=== PATIENT | male | born 1960 | race Caucasian/White ===

== ENCOUNTER 2020-01-18 08:11 | Outpatient (REF) | payer OTHER, SELFPAY ==
[2020-01-18 09:42] LABS: MANUAL DIFF FLAG NO
[2020-01-18 09:44] LABS: Basophils Absolute Auto 0.1 X10*3/uL (0.0-0.2); Basophils Percent Auto 0.8 % (0-2); Eosinophils Absolute Auto 0.3 X10*3/uL (0.0-0.4); Eosinophils Percent Auto 2.5 % (0-4); Hematocrit 47.1 % (42-52); Hemoglobin 15.2 g/dl (14.0-18.0); Imm Gran Abs Auto 0.06 X10*3/uL (0.00-0.03); Imm Gran Pct Auto 0.6 % (0.0-0.4); Lymphocytes Percent Auto 19.4 % (20-40); Mean Corpuscular HGB Conc 32.3 g/dl (31.0-36.0); Mean Corpuscular Volume 86.9 fL (80-98); Mean Platelet Volume 10.2 fL (9.4-12.4); Monocytes Absolute Auto 0.9 X10*3/uL (0.1-1.2); Monocytes Percent Auto 8.5 % (2-11); Neutrophils Absolute Auto 6.9 X10*3/uL (2.0-8.3); Neutrophils Percent Auto 68.2 % (45-73); Platelet Count 337 X10*3/uL (160-400); Red Blood Count 5.42 X10*6/uL (4.60-5.80); Red Cell Distribution Width 13.9 % (11.0-16.0); White Blood Count 10.1 X10*3/uL (4.8-10.8)
[2020-01-18 10:03] LABS: Glucose Urine UA >=1000 MG/DL (NEG); Leukocyte Esterase Urine NEG (NEG); Nitrite Urine NEG (NEG); Specific Gravity - Urine 1.015 (1.005-1.025); Urine Blood NEG (NEG); Urine Ketones NEG (NEG); Urine Protein NEG (NEG-TRACE)
[2020-01-18 10:05] LABS: Appearance Urine CLEAR; Color Urine STRAW
[2020-01-18 10:18] LABS: RBC Urine 0 /HPF (0); WBC Urine 0 /HPF (0-4)
[2020-01-18 10:22] LABS: Alanine Aminotransferase 28 U/L (0-40); Albumin Level 4.3 g/dL (3.5-5.0); Alkaline Phosphatase 109 U/L (39-117); Anion Gap 14 (12-20); Aspartate Amino Transferase 21 U/L (5-37); Bilirubin Total 0.6 mg/dL (0.0-1.0); Blood Urea Nitrogen 13 mg/dL (9-16); Calcium 9.1 mg/dL (8.4-10.2); Carbon Dioxide 30 mmol/L (22-29); Chloride 101 mmol/L (96-108); Cholesterol 150 mg/dL; Estimated Glomerular Filt Rate > 60; Glucose Fasting 235 mg/dL (60-99); HDL Cholesterol 38 mg/dL; LDL Cholesterol Calculated 79 mg/dl; Potassium 4.3 mmol/l (3.3-5.1); Sodium 141 mmol/L (135-145); Total Protein 7.1 g/dL (6.5-8.0); Triglycerides 169 mg/dL
[2020-01-18 10:22] LABS: Creatinine Urine 38.56 mg/dL; Microalbum/Creatinine Ratio Ur 12.9 ug/mg cr
[2020-01-18 10:46] LABS: TSH reflex Free T4 3.26 mIU/mL (0.32-4.0)
== END 2020-01-18 08:12 | disposition home or self-care (01) ==
LOC: HO.LAB 08:11
PROVIDERS: Visit Provider Internal Medicine
DX: E11.65 Type 2 diabetes mellitus with hyperglycemia (principal); I10 Essential (primary) hypertension; E78.5 Hyperlipidemia, unspecified; K21.9 Gastro-esophageal reflux disease without esophagitis; N34.2 Other urethritis; E66.01 Morbid (severe) obesity due to excess calories
CPT/HCPCS: 36415; 80053; 80061; 81001; 81003; 82043; 84443; 85025

== ENCOUNTER → 2020-03-14 09:29 | Outpatient (BNVA) | payer OTHER, SELFPAY | PROVIDERS: PCP Internal Medicine; Referring Provider Internal Medicine; Visit Provider Internal Medicine | DX: E11.65 Type 2 diabetes mellitus with hyperglycemia (principal); E78.5 Hyperlipidemia, unspecified; I10 Essential (primary) hypertension; Z79.899 Other long term (current) drug therapy | CPT/HCPCS: 82947; 99202 ==

== ENCOUNTER 2020-05-17 08:50 | Outpatient (REF) | payer OTHER, SELFPAY ==
[2020-05-17 09:20] LABS: MANUAL DIFF FLAG NO
[2020-05-17 09:24] LABS: Basophils Absolute Auto 0.1 X10*3/uL (0.0-0.2); Basophils Percent Auto 0.8 % (0-2); Eosinophils Absolute Auto 0.3 X10*3/uL (0.0-0.4); Eosinophils Percent Auto 2.5 % (0-4); Hematocrit 47.1 % (42-52); Hemoglobin 15.4 g/dl (14.0-18.0); Imm Gran Abs Auto 0.05 X10*3/uL (0.00-0.03); Imm Gran Pct Auto 0.4 % (0.0-0.4); Lymphocytes Absolute Auto 2.3 X10*3/uL (1.2-4.9); Lymphocytes Percent Auto 20.4 % (20-40); Mean Corpuscular HGB Conc 32.7 g/dl (31.0-36.0); Mean Corpuscular Hemoglobin 28.3 pg (27.0-33.0); Mean Corpuscular Volume 86.4 fL (80-98); Mean Platelet Volume 9.7 fL (9.4-12.4); Monocytes Percent Auto 9.2 % (2-11); Neutrophils Absolute Auto 7.5 X10*3/uL (2.0-8.3); Neutrophils Percent Auto 66.7 % (45-73); Platelet Count 323 X10*3/uL (160-400); Red Blood Count 5.45 X10*6/uL (4.60-5.80); Red Cell Distribution Width 13.8 % (11.0-16.0); White Blood Count 11.2 X10*3/uL (4.8-10.8)
[2020-05-17 09:35] LABS: Glucose Urine UA >=1000 MG/DL (NEG); Leukocyte Esterase Urine NEG (NEG); Nitrite Urine NEG (NEG); Specific Gravity - Urine 1.015 (1.005-1.025); Urine Blood NEG (NEG); Urine Ketones NEG (NEG); Urine Protein NEG (NEG-TRACE)
[2020-05-17 09:37] LABS: Appearance Urine CLEAR; Color Urine YELLOW
[2020-05-17 09:51] LABS: Alanine Aminotransferase 19 U/L (0-40); Albumin Level 4.4 g/dL (3.5-5.0); Alkaline Phosphatase 90 U/L (39-117); Anion Gap 15 (12-20); Aspartate Amino Transferase 18 U/L (5-37); Bilirubin Total 0.8 mg/dL (0.0-1.0); Blood Urea Nitrogen 11 mg/dL (9-16); Calcium 9.4 mg/dL (8.4-10.2); Carbon Dioxide 32 mmol/L (22-29); Chloride 99 mmol/L (96-108); Cholesterol 155 mg/dL; Estimated Glomerular Filt Rate > 60; Glucose Fasting 176 mg/dL (60-99); HDL Cholesterol 34 mg/dL; LDL Cholesterol Calculated 73 mg/dl; Potassium 4.2 mmol/L (3.3-5.1); Sodium 142 mmol/L (135-145); Total Protein 7.4 g/dL (6.5-8.0); Triglycerides 241 mg/dL
[2020-05-17 09:56] LABS: RBC Urine 0 /HPF (0); WBC Urine 0-2 /HPF (0-4)
[2020-05-17 10:13] LABS: TSH reflex Free T4 3.31 uIU/mL (0.32-4.0)
[2020-05-17 10:23] LABS: Creatinine Urine 58.35 mg/dL; Microalbum/Creatinine Ratio Ur 11.9 ug/mg cr
== END 2020-05-17 08:51 | disposition home or self-care (01) ==
LOC: HO.LAB 08:50
PROVIDERS: PCP Internal Medicine; Visit Provider Internal Medicine
DX: E11.65 Type 2 diabetes mellitus with hyperglycemia (principal); K21.9 Gastro-esophageal reflux disease without esophagitis; E78.5 Hyperlipidemia, unspecified; E66.01 Morbid (severe) obesity due to excess calories; I10 Essential (primary) hypertension; N34.2 Other urethritis; Z68.41 Body mass index [BMI] 40.0-44.9, adult
CPT/HCPCS: 36415; 80053; 80061; 81001; 82043; 84443; 85025

== ENCOUNTER 2021-01-20 08:39 | Outpatient (REF) | payer OTHER, SELFPAY ==
[2021-01-20 09:01] LABS: MANUAL DIFF FLAG NO
[2021-01-20 09:34] LABS: Basophils Absolute Auto 0.1 X10*3/uL (0.0-0.2); Basophils Percent Auto 0.7 % (0-2); Eosinophils Absolute Auto 0.3 X10*3/uL (0.0-0.4); Eosinophils Percent Auto 3.1 % (0-4); Hematocrit 48.5 % (42.0-52.0); Hemoglobin 16.3 g/dl (14.0-18.0); Imm Gran Abs Auto 0.06 X10*3/uL (0.00-0.03); Imm Gran Pct Auto 0.6 % (0.0-0.4); Lymphocytes Absolute Auto 2.6 X10*3/uL (1.2-4.9); Lymphocytes Percent Auto 24.7 % (20-40); Mean Corpuscular HGB Conc 33.6 g/dl (31.0-36.0); Mean Corpuscular Volume 86.1 fL (80.0-98.0); Mean Platelet Volume 9.7 fL (9.4-12.4); Monocytes Absolute Auto 0.8 X10*3/uL (0.1-1.2); Monocytes Percent Auto 7.3 % (2-11); Neutrophils Absolute Auto 6.7 x10*3/uL (2.0-8.3); Neutrophils Percent Auto 63.6 % (45-73); Platelet Count 316 X10*3/uL (160-400); Red Blood Count 5.63 X10*6/uL (4.60-5.80); Red Cell Distribution Width 13.1 % (11.0-16.0); White Blood Count 10.5 X10*3/uL (4.8-10.8)
[2021-01-20 09:40] LABS: Appearance Urine CLEAR; Color Urine STRAW; Glucose Urine UA >=1000 MG/DL (NEG); Leukocyte Esterase Urine NEG (NEG); Nitrite Urine NEG (NEG); PH 6.5 (5.0-8.0); Specific Gravity - Urine <= 1.005 (1.005-1.025); Urine Blood NEG (NEG); Urine Ketones 5 MG/DL (NEG); Urine Protein NEG (NEG-TRACE)
[2021-01-20 09:44] LABS: Estimated Average Glucose 341 mg/dL; Hemoglobin A1c % 13.5 %
[2021-01-20 09:56] LABS: RBC Urine 0-2 /HPF (0); Squamous Epithelial Cell Urine TRACE /LPF; WBC Urine 0 /HPF (0-4)
[2021-01-20 10:01] LABS: Alanine Aminotransferase 27 U/L (0-40); Albumin Level 4.6 g/dL (3.5-5.0); Alkaline Phosphatase 109 U/L (39-117); Anion Gap 17 (12-20); Aspartate Amino Transferase 20 U/L (5-37); Bilirubin Total 1.3 mg/dL (0.0-1.0); Blood Urea Nitrogen 11 mg/dL (9-16); Calcium 9.9 mg/dL (8.4-10.2); Carbon Dioxide 29 mmol/L (22-29); Chloride 95 mmol/L (96-108); Cholesterol 197 mg/dL; Estimated Glomerular Filt Rate > 60; Glucose Fasting 297 mg/dL (60-99); HDL Cholesterol 42 mg/dL; LDL Cholesterol Calculated 103 mg/dl; Potassium 4.2 mmol/L (3.3-5.1); Sodium 137 mmol/L (135-145); Total Protein 7.9 g/dL (6.5-8.0); Triglycerides 261 mg/dL
[2021-01-20 10:12] LABS: Creatinine Urine 32.72 mg/dL; Microalbum/Creatinine Ratio Ur 18.3 ug/mg cr
[2021-01-20 10:23] LABS: TSH reflex Free T4 1.74 uIU/mL (0.32-4.0)
== END 2021-01-20 08:40 | disposition home or self-care (01) ==
LOC: HO.LAB 08:39
PROVIDERS: PCP Internal Medicine; Visit Provider Internal Medicine
DX: I10 Essential (primary) hypertension (principal); K21.9 Gastro-esophageal reflux disease without esophagitis; E78.5 Hyperlipidemia, unspecified; E66.01 Morbid (severe) obesity due to excess calories; Z68.41 Body mass index [BMI] 40.0-44.9, adult; E11.65 Type 2 diabetes mellitus with hyperglycemia
CPT/HCPCS: 36415; 80053; 80061; 81001; 82043; 83036; 84443; 85025

== ENCOUNTER 2021-04-29 10:07 | Outpatient (REF) | payer OTHER, SELFPAY ==
[2021-04-29 10:22] LABS: MANUAL DIFF FLAG NO
[2021-04-29 11:17] LABS: Basophils Absolute Auto 0.1 X10*3/uL (0.0-0.2); Basophils Percent Auto 0.5 % (0-2); Eosinophils Absolute Auto 0.2 X10*3/uL (0.0-0.4); Hematocrit 50.5 % (42.0-52.0); Hemoglobin 16.6 g/dl (14.0-18.0); Imm Gran Abs Auto 0.04 X10*3/uL (0.00-0.03); Imm Gran Pct Auto 0.3 % (0.0-0.4); Lymphocytes Absolute Auto 2.4 X10*3/uL (1.2-4.9); Lymphocytes Percent Auto 21.3 % (20-40); Mean Corpuscular HGB Conc 32.9 g/dl (31.0-36.0); Mean Corpuscular Hemoglobin 29.3 pg (27.0-33.0); Mean Corpuscular Volume 89.2 fL (80.0-98.0); Monocytes Absolute Auto 0.8 X10*3/uL (0.1-1.2); Monocytes Percent Auto 7.2 % (2-11); Neutrophils Absolute Auto 7.9 x10*3/uL (2.0-8.3); Neutrophils Percent Auto 68.7 % (45-73); Platelet Count 316 X10*3/uL (160-400); Red Blood Count 5.66 X10*6/uL (4.60-5.80); White Blood Count 11.5 X10*3/uL (4.8-10.8)
[2021-04-29 11:33] LABS: Estimated Average Glucose 309 mg/dL; Hemoglobin A1c % 12.4 %
[2021-04-29 11:34] LABS: Appearance Urine CLEAR; Color Urine YELLOW; Glucose Urine UA >=1000 MG/DL (NEG); Leukocyte Esterase Urine NEG (NEG); Nitrite Urine NEG (NEG); Urine Blood NEG (NEG); Urine Ketones 15 MG/DL (NEG); Urine Protein NEG (NEG-TRACE)
[2021-04-29 11:39] LABS: Alanine Aminotransferase 23 U/L (0-40); Albumin Level 4.7 g/dL (3.5-5.0); Alkaline Phosphatase 105 U/L (39-117); Anion Gap 17 (12-20); Aspartate Amino Transferase 19 U/L (5-37); Bilirubin Total 1.3 mg/dL (0.0-1.0); Blood Urea Nitrogen 12 mg/dL (9-16); Calcium 9.9 mg/dL (8.4-10.2); Carbon Dioxide 30 mmol/L (22-29); Chloride 96 mmol/L (96-108); Cholesterol 191 mg/dL; Estimated Glomerular Filt Rate > 60; Glucose Fasting 236 mg/dL (60-99); HDL Cholesterol 42 mg/dL; LDL Cholesterol Calculated 104 mg/dl; Potassium 4.1 mmol/L (3.3-5.1); Sodium 139 mmol/L (135-145); Triglycerides 226 mg/dL
[2021-04-29 11:39] LABS: Creatinine Urine 40.26 mg/dL; Microalbum/Creatinine Ratio Ur 19.8 ug/mg cr
[2021-04-29 11:41] LABS: RBC Urine 0 /HPF (0); WBC Urine 0 /HPF (0-4)
[2021-04-29 11:54] LABS: TSH reflex Free T4 2.29 uIU/mL (0.32-4.0); Vitamin D 25-OH Total 19.1 ng/mL (>30)
== END 2021-04-29 10:08 | disposition home or self-care (01) ==
LOC: HO.LAB 10:07
PROVIDERS: PCP Internal Medicine; Visit Provider Internal Medicine
DX: I10 Essential (primary) hypertension (principal); E11.9 Type 2 diabetes mellitus without complications; E55.9 Vitamin D deficiency, unspecified; E78.00 Pure hypercholesterolemia, unspecified
CPT/HCPCS: 36415; 80053; 80061; 81001; 82043; 82306; 83036; 84443; 85025

== ENCOUNTER → 2021-07-07 09:58 | Outpatient (REF) | payer OTHER, SELFPAY ==
--- NOTE | 2021-07-07 10:06 | HM_ITS ---
* Total monitoring time 3 days and 4 hours. * Underlying rhythm is sinus. Average rate 96/Min; ranged 70-145/Min. About 42% the time, rate > 100/Min. * Very rare supraventricular and ventricular ectopy with minimal burden. * No sustained arrhythmias. * No patient events. MTDD
--- NOTE | 2021-07-07 10:06 | CA_ITS ---
Transthoracic Echocardiogram Patient (Last, First, Middle): John Beckman, Gender: Male Date of : 1960 Age: 60 Procedure Date: 07/07/2021 Procedure Type: Transthoracic Echocardiogram Location: OP Height: 175.26 cm Weight: 122.47 kg BSA: 2.35 m2 Heart Rate: bpm BP: 126 / 70 mmHg Wire Weaver Helper: EVY Referring MD: Abdoulaye Lucas MD Symptoms: R06.00 - Dyspnea, unspecified Study Quality: Technically Difficult ECG Rhythm: Sinus Conclusions: - The left ventricular systolic function is normal. The calculated ejection fraction is 59% by biplane method. - No obvious valvular pathology seen on this study. Findings Procedure Information The patient declines contrast. Left Ventricle Normal left ventricular cavity size. The left ventricular systolic function is normal. The calculated ejection fraction is 59% by biplane method. There is no evidence of regional wall motion abnormalities. Diastolic function is normal for age. Difficult to assess wall thickness but either normal or no more than mild LVH. Right Ventricle Normal right ventricular cavity size and systolic function. Atria Both atria are normal in size. Aortic Valve There is a normal trileaflet aortic valve. There is no aortic valve stenosis. There is no aortic valve regurgitation. Mitral Valve The mitral valve appears normal. There is no mitral valve regurgitation. There is no mitral valve stenosis. Pulmonic Valve The pulmonic valve is likely normal. Tricuspid Valve The tricuspid valve was not well visualized. There is no tricuspid valve regurgitation. Tricuspid regurgitation envelope is inadequate for calculation of right ventricular systolic pressure. Great Vessels Top normal ascending aortic size at 3.8 cm. Venous The inferior vena cava was not well visualized. The inferior vena cava is normal in size. Pericardium/Pleural There is no evidence of pericardial effusion. Prior Study Comparison No prior study available for comparison. Recommendations, Care & Conclusions No obvious valvular pathology seen on this study. Measurements 2D Linear Measurements IVSd: 1.22 0.6-0.9/0.6-1.0 cm LVIDd: 3.66 3.9-5.3/4.2-5.9 cm LVIDd Index: 1.56 2.4-3.2/2.2-3.1 cm/m2 LVIDs: 2.75 2.0-3.6 cm LVPWd: 1.22 0.7-1.1 cm LA Diam: 3.90 2.7-3.8/3.0-4.0 cm LAIDs Index: 1.66 1.5-2.3 cm/m2 LV Mass: 185.07 67-162/88-224 g LV Mass Index: 78.75 43-95/49-115 g/m2 LVOT Diam: 2.30 3.0+(-)1.3 cm 2D Systolic Function EF 4C: 56.10 >55% EF 2C: 65.20 >55% EF BiP: 58.60 >55% Mitral Valve MV Pk E: 0.64 MV PK A: 0.67 MV Decel Time: 178.00 E/A: 1.00 E'Lateral: 6.31 E'Medial: 5.66 E/E' Med: 11.40 E/E' Lat: 10.20 PHT: 52.00 MVA PHT: 4.23 Decel Campbell: 3.62 Aortic Valve AoV Pk Elfego: 1.25 AoV Mn Elfego: 0.87 AoV VTI: 0.19 AoV Pk Grad: 6.00 Aov Mn Grad: 3.00 EDER Cont.VTI: 3.64 LVOT LVOT Pk Elfgeo: 1.08 LVOT Mn Elfego: 0.69 LVOT VTI: 0.17 LVOT Pk Grad: 5.00 LVOT Mn Grad: 2.00 LVOT Diam: 2.30 LVOT Area: 4.15 Diastolic Function MV Pk E: 0.64 MV Pk A: 0.67 E/A: 1.00 E'Medial: 5.66 E/E' Med: 11.40 E' Laterial: 6.31 E/E' Lat: 10.20 Right Ventricle TAPSE (mm): 18.00 TVS' Elfego: 12.50 Great Vessels Aorta Sinus of Valsalva: 3.82 2.0-3.[address] [place]: 3.28 1.7-3.4 cm Ao Asc: 3.80 2.1-3.4 cm Ao Arch: 2.50 Updated in Other Vendor System with Status of Final Ray Maddox MD electronically signed on 07/08/2021 11:16:27 AM with status of Final
== END ==
LOC: HO.CARD 09:58
PROVIDERS: PCP Internal Medicine; Visit Provider Internal Medicine
DX: R00.2 Palpitations (principal); R06.00 Dyspnea, unspecified
CPT/HCPCS: 93242; 93306

== ENCOUNTER 2021-07-14 08:41 | Outpatient (REF) | payer OTHER, SELFPAY ==
[2021-07-14 09:03] LABS: MANUAL DIFF FLAG NO
[2021-07-14 09:30] LABS: Basophils Absolute Auto 0.1 X10*3/uL (0.0-0.2); Basophils Percent Auto 0.9 % (0-2); Eosinophils Absolute Auto 0.2 X10*3/uL (0.0-0.4); Eosinophils Percent Auto 2.1 % (0-4); Hematocrit 46.8 % (42.0-52.0); Hemoglobin 15.6 g/dl (14.0-18.0); Imm Gran Abs Auto 0.05 X10*3/uL (0.00-0.03); Imm Gran Pct Auto 0.6 % (0.0-0.4); Lymphocytes Absolute Auto 1.9 X10*3/uL (1.2-4.9); Lymphocytes Percent Auto 21.7 % (20-40); Mean Corpuscular HGB Conc 33.3 g/dl (31.0-36.0); Mean Corpuscular Hemoglobin 29.5 pg (27.0-33.0); Mean Corpuscular Volume 88.6 fL (80.0-98.0); Mean Platelet Volume 9.9 fL (9.4-12.4); Monocytes Absolute Auto 0.8 X10*3/uL (0.1-1.2); Monocytes Percent Auto 9.6 % (2-11); Neutrophils Absolute Auto 5.6 x10*3/uL (2.0-8.3); Neutrophils Percent Auto 65.1 % (45-73); Platelet Count 307 X10*3/uL (160-400); Red Blood Count 5.28 X10*6/uL (4.60-5.80); Red Cell Distribution Width 12.8 % (11.0-16.0); White Blood Count 8.5 X10*3/uL (4.8-10.8)
[2021-07-14 09:42] LABS: Alanine Aminotransferase 20 U/L (0-40); Albumin Level 4.2 g/dL (3.5-5.0); Alkaline Phosphatase 76 U/L (39-117); Anion Gap 15 (12-20); Aspartate Amino Transferase 17 U/L (5-37); Bilirubin Total 1.3 mg/dL (0.0-1.0); Blood Urea Nitrogen 12 mg/dL (9-16); Calcium 9.8 mg/dL (8.4-10.2); Carbon Dioxide 29 mmol/L (22-29); Chloride 96 mmol/L (96-108); Cholesterol 172 mg/dL; Estimated Glomerular Filt Rate > 60; Glucose Fasting 268 mg/dL (60-99); HDL Cholesterol 38 mg/dL; LDL Cholesterol Calculated 85 mg/dl; Potassium 4.5 mmol/L (3.3-5.1); Sodium 135 mmol/L (135-145); Total Protein 7.3 g/dL (6.5-8.0); Triglycerides 246 mg/dL
[2021-07-14 10:02] LABS: Estimated Average Glucose 295 mg/dL; Hemoglobin A1c % 11.9 %
[2021-07-14 10:05] LABS: TSH reflex Free T4 1.81 uIU/mL (0.32-4.0); Vitamin D 25-OH Total 16.3 ng/mL (>30)
[2021-07-14 10:53] LABS: Appearance Urine CLEAR; Color Urine YELLOW; Glucose Urine UA 500 MG/DL (NEG); Leukocyte Esterase Urine NEG (NEG); Nitrite Urine NEG (NEG); Specific Gravity - Urine <= 1.005 (1.005-1.025); Urine Blood NEG (NEG); Urine Ketones 5 MG/DL (NEG); Urine Protein NEG (NEG-TRACE)
[2021-07-14 11:11] LABS: Creatinine Urine 38.01 mg/dL
== END 2021-07-14 08:42 | disposition home or self-care (01) ==
LOC: HO.LAB 08:41
PROVIDERS: PCP Internal Medicine; Visit Provider Internal Medicine
DX: E11.9 Type 2 diabetes mellitus without complications (principal); E78.00 Pure hypercholesterolemia, unspecified; E55.9 Vitamin D deficiency, unspecified; I10 Essential (primary) hypertension
CPT/HCPCS: 36415; 80053; 80061; 81003; 82043; 82306; 83036; 84443; 85025

== ENCOUNTER → 2021-10-19 08:24 | Outpatient (BNVA) | payer OTHER, SELFPAY | PROVIDERS: PCP Internal Medicine; Visit Provider Urology | DX: N40.1 Benign prostatic hyperplasia with lower urinary tract symptoms (principal); E11.65 Type 2 diabetes mellitus with hyperglycemia | CPT/HCPCS: 51798; 99202 ==

== ENCOUNTER → 2021-12-08 09:07 | Outpatient (BNVA) | payer OTHER, SELFPAY | PROVIDERS: PCP Internal Medicine; Referring Provider Internal Medicine; Visit Provider Internal Medicine Cardiovascular Disease | DX: R00.2 Palpitations (principal) | CPT/HCPCS: 93005; 99202 ==

== ENCOUNTER 2022-10-05 07:33 | Outpatient (AMB) | payer OTHER, SELFPAY ==
[2022-10-05 07:40] VITALS: BP 128/72; PULSE 92; O2SAT 95; BMI 37.8
--- NOTE | 2022-10-05 07:40 | MHC.PC.OV ---
Vital Signs 10/05/22 07:40 Height 5 ft 9 in Weight 256 lb BMI 37.8 BP 128/72 Blood Pressure Location Lt brachial Position Sitting Pulse 92 Pulse Source Pulse Oximeter Pulse Oximetry (%) 95 Oxygen Delivery Method Room Air Intake Visit Reasons: 6 month follow up/dm,hyperlipidemia Allergies codeine [CODEINE] Allergy (Severe, Verified 10/05/22 07:59) CONVULSIONS, anaphylaxis Penicillins [PENICILLINS] Allergy (Severe, Verified 10/05/22 07:59) ANAPHYLAXIS erythromycin base Allergy (Unknown, Verified 10/05/22 07:59) Unknown penicillin V Allergy (Unknown, Verified 10/05/22 07:59) anaphylaxis, throat swelling pollen extracts Allergy (Unknown, Verified 10/05/22 07:59) Unknown [place] Allergy (Unknown, Verified 10/05/22 07:59) tongue spits in two, tongue swelling Sulfa (Sulfonamide Antibiotics) Allergy (Unknown, Verified 10/05/22 07:59) hives Medication List - Last Reconciled 10/05/22 by VIVIAN Ruiz amlodipine 10 mg PO DAILY atorvastatin 10 mg PO BEDTIME 90 days blood sugar diagnostic (FreeStyle Lite Strips) 4x daily blood-glucose meter (FreeStyle Lite Meter kit) As directed dulaglutide 4.5 mg (0.5 mL) subcut QWEEK 3 months empagliflozin (Jardiance) 25 mg PO DAILY ergocalciferol (vitamin D2) 1,250 mcg PO QWEEK hydrochlorothiazide 25 mg PO DAILY irbesartan 300 mg PO DAILY lancets (FreeStyle Lancets) 4x daily metformin ER 1,000 mg (2 x 500 mg) PO BID 90 days omeprazole 20 mg PO DAILY 30 days pioglitazone 45 mg PO DAILY 90 days tadalafil 5 mg PO DAILY 90 days tamsulosin 0.4 mg PO BEDTIME 30 days Tobacco use date assessed: 10/05/22 Dental Screening Dental Screen Date: 10/05/22 Did you have a dental visit in the last 12 months?: Yes Did you have a dental problem in the last 6 months where you did not have access to dental care?: No Was dental information given to patient?: Patient has dentist HPI HPI Comments History of Present Illness Details 62-year-old male past medical history significant for type 2 diabetes mellitus, hyperlipidemia, hypertension, GERD and obesity. Patient Dr. Lucas presents today for follow-up visit. Blood pressure below goal in office today. Patient's hemoglobin A1c 9.0%, patient currently following with Dr. Cotter Endocrinology, patient requesting referral to diabetic commissary assistant. Patient's diabetic eye exam up-to-date completed in March no signs diabetic retinopathy. Patient has not completed recommended lab work, new orders placed for labs. Patient also requesting referral to [facility] as he states he is due for his colonoscopy, referral entered. [facility] Medical History (Updated 12/18/21 @ 14:39 by Abdoulaye Lucas MD) Allergic rhinitis Benign essential hypertension Diabetes mellitus with hyperglycemia, without long-term current use of insulin Dyslipidemia GERD without esophagitis HLD (hyperlipidemia) HTN (hypertension) Low back pain Morbid obesity with BMI of 40.0-44.9, adult Obesity (BMI 30-39.9) Primary osteoarthritis of both knees T2DM (type 2 diabetes mellitus) Urethritis Surgical History History of drainage of abscess History of umbilical hernia repair Family History Father No problems noted. Mother Chronic mental illness CVD (cardiovascular disease) Maternal Grandmother Brain cancer Brother CVD (cardiovascular disease) Afib Sister Afib Other Mental health problem Social History Housing: House Alcohol intake: never Patient Tobacco Use Status: Never used Tobacco e-Cigarette/Vaping Use: Never Used Second Hand Smoke Exposure: Yes service: No Current occupational status: employed Cognitive needs: No Hearing needs: Yes Vision needs: No Questionnaire PHQ-9 Over the last 2 weeks, how often have you been bothered by any of the following problems? 1. Little interest or pleasure in doing things: not at all 2. Feeling down, depressed, or hopeless: not at all 3. Trouble falling or staying asleep, or sleeping too much: not at all 4. Feeling tired or having little energy: not at all 5. Poor appetite or overeating: not at all 6. Feeling bad about yourself - or that you are a failure or have let yourself or your family down: not at all 7. Trouble concentrating on things, such as reading the newspaper or watching television: not at all 8. Moving or speaking so slowly that other people could have noticed. Or the opposite - being so fidgety or restless that you have been moving around a lot more than usual: not at all 9. Thoughts that you would be better off or of hurting yourself in some way: not at all Total score: 0 Depression Screening Interpretation: Negative Source: Developed by Drs. Milind Vu, Aminah Cross, Donnie Coles and colleagues, with an educational breana from [employer]. Thrive Questionnaire Date Thrive assessed: 10/05/22 I am a: Patient What is your living situation today?: I have a steady place to live Within the past 12 months, did the food you bought not last and you didn't have the money to get more?: Never true Within the past 12 months, did you worry whether your food would run out before you got money to buy more?: Never true Do you have trouble paying for medicines?: No Do you have trouble getting transportation to medical appointments?: No Do you have trouble paying your heating and electricity bill?: No Do you have trouble taking care of your child, family member or friend?: No Do you have trouble with day-to-day activities such as bathing, preparing meals, shopping, managing finances, etc.?: No Are you currently unemployed and looking for a job?: No Are you interested in more education?: No Currently or been in a relationship where the following occur: no concerns reported AUDIT C Alcohol Use Questionnaire (AUDIT-C) 1. How often do you have a drink containing alcohol?: Never 3. How often do you have six or more drinks on one occasion?: Never Total Score: 0 Score Reviewed/Action Taken: Yes ROYER-7 AMB Questionnaire ROYER-7 Date ROYER - 7 assessed: 10/05/22 Feeling nervous, anxious, or on edge: 0 = Not at all Not being able to stop or control worryin = Not at all Worrying too much about different things: 0 = Not at all Trouble relaxin = Not at all Being so restless that it is hard to sit still: 0 = Not at all Becoming easily annoyed or irritable: 0 = Not at all Feeling afraid as if something awful might happen: 0 = Not at all Total ROYER-7 score (0-4 normal; 5-9 mild; 10-14 moderate; 15-21 severe): 0 Source: Developed by Drs. Milind Vu, Aminah Cross, Donnie Coles and colleagues, with an educational breana from [employer]. Review of Systems Const Denies chills, Denies fatigue, Denies fever(s) and Denies poor appetite Eyes Denies no additional complaints ENT Reports Normal hearing present Card Denies chest pain, Denies syncope, Denies rapid heart rate and Denies dyspnea Resp Denies cough and Denies dyspnea GI Denies change in stool character, Denies constipation, Denies diarrhea, Denies nausea and Denies vomiting Denies dysuria, Denies urinary frequency and Denies urinary urgency Neuro Reports Normal hearing present, Denies confusion and Denies syncope Psych Denies confusion Endo Denies fatigue Physical exam (Primary Care) Vital Signs: Last Vital Signs Pulse 92 10/05/22 07:40 BP 128/72 10/05/22 07:40 Pulse Ox 95 10/05/22 07:40 Oxygen Delivery Method Room Air 10/05/22 07:40 BMI result Body Mass Index 37.8 Tobacco/Smoking Status: Tobacco use Status Tobacco use date assessed 10/05/22 10/05/22 07:42 Patient Tobacco Use Status Never used Tobacco 10/05/22 07:42 e-Cigarette/Vaping Use Never Used 10/05/22 07:42 PHQ-9: PHQ-9 Score PHQ-9: Total score 0 10/05/22 07:57 Depression Screening Interpretation: Negative Thrive Assessment: Date of Thrive Assessment Date Thrive assessed 10/05/22 10/05/22 07:42 Currently or been in a relationship where the following occur: no concerns reported Const General: No confusion Orientation/consciousness: No confusion HENMT Head: Yes normocephalic and Yes atraumatic Eyes Conjunctivae: conjunctivae normal Chest Chest palpation & inspection: normal inspection of the chest Resp Effort & Inspection: normal respiratory effort Auscultation: clear to auscultation bilaterally, no crackles, no rhonchi and no wheezes Cardio Rate: regular rate Rhythm: regular rhythm Heart sounds: S1 normal heart sound present and S2 normal heart sound present GI Inspection: Yes normal to inspection Neuro General: No confusion Cranial nerves: Yes Normal hearing present Extrem General: No edema Results AMB Hemoglobin A1c AMB Hemoglobin A1c 9.0 % Last Edit by Johana Triana CMA on 10/05/22 07:54 Results Reviewed Results Reviewed: Laboratory Last Values Hgb A1c (Clinic) 9.0 % (4.0-6.0) H 10/05/22 07:42 Assessment and Plan Assessment & Plan (1) HLD (hyperlipidemia): Code(s): E78.5 - Hyperlipidemia, unspecified Qualifiers: Hyperlipidemia type: unspecified Qualified Code(s): E78.5 - Hyperlipidemia, unspecified Plan: Continue on atorvastatin 10 mg at bedtime. Fasting lipid panel ordered. Follow low cholesterol diet. (2) HTN (hypertension): Code(s): I10 - Essential (primary) hypertension Qualifiers: Hypertension type: unspecified Qualified Code(s): I10 - Essential (primary) hypertension Plan: Continue on amlodipine 10 mg, hydrochlorothiazide 25 mg and irbesartan 300 mg daily. Follow low-salt diet and exercise. Blood pressure goal < 140/90. (3) Diabetes mellitus with hyperglycemia, without long-term current use of insulin: Code(s): E11.65 - Type 2 diabetes mellitus with hyperglycemia Qualifiers: Diabetes mellitus type: type 2 Qualified Code(s): E11.65 - Type 2 diabetes mellitus with hyperglycemia Plan: Continue on Trulicity 4.5 mg weekly, Jardiance 25 mg daily, metformin a 1000 mg b.i.d. and P clitoris on 45 mg daily. Referral entered to diabetic commissary assistant. HGB A1c 9.0%, goal < 7.0% Continue to follow with Dr. Cotter. Plan Follow up in [address] Lucas Orders: Orders Comprehensive [place]. Panel Fast Today E11.65 - Type 2 diabetes mellitus with hyperglycemia Lipid Panel Today E78.5 - Hyperlipidemia, unspecified TSH reflex Free T4 Today Z13.29 - Encounter for screening for other suspected endocrine disorder Microalbumin, Random (w Creat) Today E11.65 - Type 2 diabetes mellitus with hyperglycemia Complete Blood Count Auto Diff Today Z13.0 - Encounter for screening for diseases of the blood and blood-forming organs and certain disorders involving the immune mechanism AMB Hemoglobin A1c Today Z13.9 - Encounter for screening, unspecified Referrals Gastroenterology Referral Z12.11 - Encounter for screening for malignant neoplasm of colon Billing And Quality Technician Nutrition Referral E11.65 - Type 2 diabetes mellitus with hyperglycemia Coding Level of Care Code Est Pt Level 4 (13863) Diagnoses HLD (hyperlipidemia) E78.5 Hyperlipidemia type: unspecified HTN (hypertension) I10 Hypertension type: unspecified Diabetes mellitus with hyperglycemia, without long-term current use of insulin E11.65 Diabetes mellitus type: type 2 Additional Codes PHQ-9 - 68469 - PHQ-9 Billing: Y ([id number])
== END 2022-10-05 08:11 | disposition home or self-care (01) ==
PROVIDERS: PCP Internal Medicine; Visit Provider Nurse Practitioner Family
DX: E11.65 Type 2 diabetes mellitus with hyperglycemia (principal)
CPT/HCPCS: 83036; 99214

== ENCOUNTER 2022-11-03 08:10 | Outpatient (REF) | payer OTHER, SELFPAY ==
[2022-11-03 08:32] LABS: MANUAL DIFF FLAG NO
[2022-11-03 09:24] LABS: Basophils Absolute Auto 0.1 X10*3/uL (0.0-0.2); Basophils Percent Auto 0.8 % (0-2); Eosinophils Absolute Auto 0.2 X10*3/uL (0.0-0.4); Eosinophils Percent Auto 2.5 % (0-4); Hematocrit 49.6 % (42.0-52.0); Hemoglobin 16.4 g/dl (14.0-18.0); Imm Gran Abs Auto 0.03 X10*3/uL (0.00-0.03); Imm Gran Pct Auto 0.3 % (0.0-0.4); Mean Corpuscular HGB Conc 33.1 g/dl (31.0-36.0); Mean Corpuscular Hemoglobin 29.4 pg (27.0-33.0); Mean Platelet Volume 10.4 fL (9.4-12.4); Monocytes Absolute Auto 0.8 X10*3/uL (0.1-1.2); Monocytes Percent Auto 8.6 % (2-11); Neutrophils Absolute Auto 5.9 x10*3/uL (2.0-8.3); Neutrophils Percent Auto 65.8 % (45-73); Platelet Count 322 X10*3/uL (160-400); Red Blood Count 5.57 X10*6/uL (4.60-5.80); Red Cell Distribution Width 13.1 % (11.0-16.0)
[2022-11-03 09:52] LABS: Appearance Urine Clear; Color Urine Yellow; Glucose Urine UA >=1000 mg/dL (Negative); Leukocyte Esterase Urine Negative (Negative); Nitrite Urine Negative (Negative); Specific Gravity - Urine >= 1.030 (1.005-1.025); UMIC TRIGGER UACC YES; Urine Blood Negative (Negative); Urine Ketones Negative (Negative); Urine Protein Negative (Neg-Trace)
[2022-11-03 09:57] LABS: Estimated Average Glucose 206 mg/dL; Hemoglobin A1c % 8.8 % (<6.0)
[2022-11-03 10:06] LABS: Bacteria Urine None Seen (None Seen); Hyaline Casts Urine 0-2 /LPF (0-2); RBC Urine 0-2 /HPF (0-2); Squamous Epithelial Cell Urine 0-2 /HPF (0-2); WBC Urine 0-5 /HPF (0-5)
[2022-11-03 10:14] LABS: Creatinine Urine 42.47 mg/dL; Microalbum/Creatinine Ratio Ur 14.1 ug/mg cr (<30)
[2022-11-03 10:37] LABS: Alanine Aminotransferase 17 U/L (0-40); Albumin Level 4.4 g/dL (3.5-5.0); Alkaline Phosphatase 86 U/L (39-117); Anion Gap 15 (12-20); Aspartate Amino Transferase 18 U/L (5-37); Bilirubin Total 1.3 mg/dL (0.0-1.0); Blood Urea Nitrogen 14 mg/dL (9-16); Calcium 9.4 mg/dL (8.4-10.2); Carbon Dioxide 30 mmol/L (22-29); Chloride 100 mmol/L (96-108); Cholesterol 158 mg/dL (<200); Estimated Glomerular Filt Rate > 60; Glucose Fasting 176 mg/dL (60-99); HDL Cholesterol 42 mg/dL (>40); LDL Cholesterol Calculated 78 mg/dL (<100); Potassium 3.6 mmol/L (3.3-5.1); Sodium 141 mmol/L (135-145); Total Protein 7.4 g/dL (6.5-8.0); Triglycerides 192 mg/dL (<150)
[2022-11-03 10:41] LABS: TSH reflex Free T4 2.76 uIU/mL (0.32-4.0); Vitamin D 25-OH Total 22.9 ng/mL (>30)
== END 2022-11-03 08:11 | disposition home or self-care (01) ==
LOC: HO.LAB 08:10
PROVIDERS: Absent Provider Nurse Practitioner Family; PCP Internal Medicine; Referring Provider Internal Medicine Endocrinology, Diabetes & Metabolism; Visit Provider Internal Medicine
DX: Z13.0 Encounter for screening for diseases of the blood and blood-forming organs and certain disorders involving the immune mechanism (principal); E11.65 Type 2 diabetes mellitus with hyperglycemia; E78.00 Pure hypercholesterolemia, unspecified; E55.9 Vitamin D deficiency, unspecified
CPT/HCPCS: 36415; 80053; 80061; 81001; 81003; 82043; 82306; 83036; 84443; 85025

== ENCOUNTER 2023-01-05 07:35 | Outpatient (REF) | payer OTHER, SELFPAY ==
[2023-01-05 08:13] LABS: MANUAL DIFF FLAG NO
[2023-01-05 08:24] LABS: Basophils Absolute Auto 0.1 X10*3/uL (0.0-0.2); Basophils Percent Auto 0.9 % (0-2); Eosinophils Absolute Auto 0.3 X10*3/uL (0.0-0.4); Eosinophils Percent Auto 3.2 % (0-4); Hematocrit 49.9 % (42.0-52.0); Hemoglobin 16.4 g/dl (14.0-18.0); Imm Gran Abs Auto 0.03 X10*3/uL (0.00-0.03); Imm Gran Pct Auto 0.3 % (0.0-0.4); Lymphocytes Absolute Auto 1.9 X10*3/uL (1.2-4.9); Lymphocytes Percent Auto 21.3 % (20-40); Mean Corpuscular HGB Conc 32.9 g/dl (31.0-36.0); Mean Corpuscular Hemoglobin 29.5 pg (27.0-33.0); Mean Corpuscular Volume 89.7 fL (80.0-98.0); Mean Platelet Volume 9.5 fL (9.4-12.4); Monocytes Absolute Auto 0.7 X10*3/uL (0.1-1.2); Monocytes Percent Auto 7.9 % (2-11); Neutrophils Percent Auto 66.4 % (45-73); Platelet Count 290 X10*3/uL (160-400); Red Blood Count 5.56 X10*6/uL (4.60-5.80); Red Cell Distribution Width 12.9 % (11.0-16.0); White Blood Count 9.1 X10*3/uL (4.8-10.8)
[2023-01-05 08:46] LABS: Appearance Urine Clear; Color Urine Yellow; Glucose Urine UA >=1000 mg/dL (Negative); Leukocyte Esterase Urine Negative (Negative); Nitrite Urine Negative (Negative); Specific Gravity - Urine >= 1.030 (1.005-1.025); UMIC TRIGGER UACC YES; Urine Blood Negative (Negative); Urine Ketones Negative (Negative); Urine Protein Negative (Neg-Trace)
[2023-01-05 08:55] LABS: Alanine Aminotransferase 20 U/L (0-40); Albumin Level 4.4 g/dL (3.5-5.0); Alkaline Phosphatase 98 U/L (39-117); Anion Gap 15 (12-20); Aspartate Amino Transferase 17 U/L (5-37); Bilirubin Total 1.3 mg/dL (0.0-1.0); Blood Urea Nitrogen 12 mg/dL (9-16); Calcium 9.5 mg/dL (8.4-10.2); Carbon Dioxide 28 mmol/L (22-29); Chloride 101 mmol/L (96-108); Cholesterol 168 mg/dL (<200); Estimated Glomerular Filt Rate > 60; Glucose Fasting 195 mg/dL (60-99); HDL Cholesterol 39 mg/dL (>40); LDL Cholesterol Calculated 96 mg/dL (<100); Potassium 3.9 mmol/L (3.3-5.1); Sodium 140 mmol/L (135-145); Total Protein 7.6 g/dL (6.5-8.0); Triglycerides 166 mg/dL (<150)
[2023-01-05 08:56] LABS: Bacteria Urine None Seen (None Seen); Hyaline Casts Urine 0-2 /LPF (0-2); RBC Urine 0-2 /HPF (0-2); Squamous Epithelial Cell Urine 0-2 /HPF (0-2); WBC Urine 0-5 /HPF (0-5)
[2023-01-05 09:12] LABS: TSH reflex Free T4 2.25 uIU/mL (0.32-4.0)
[2023-01-05 09:25] LABS: Creatinine Urine 48.44 mg/dL; Microalbum/Creatinine Ratio Ur 16.5 ug/mg cr (<30)
== END 2023-01-05 07:36 | disposition home or self-care (01) ==
LOC: HO.LAB 07:35
PROVIDERS: Nurse Practitioner Family; PCP Internal Medicine; Visit Provider Internal Medicine
DX: I10 Essential (primary) hypertension (principal); E11.65 Type 2 diabetes mellitus with hyperglycemia; E78.5 Hyperlipidemia, unspecified
CPT/HCPCS: 36415; 80053; 80061; 81001; 82043; 82570; 84443; 85025

== ENCOUNTER 2023-01-07 15:55 | Outpatient (AMB) | payer OTHER, SELFPAY ==
--- NOTE | 2023-01-07 16:05 | MHC.PC.OV ---
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: No Accompanied by: Self / Same As Patient Allergies codeine [CODEINE] Allergy (Severe, Verified 01/07/23 16:56) CONVULSIONS, anaphylaxis Penicillins [PENICILLINS] Allergy (Severe, Verified 01/07/23 16:56) ANAPHYLAXIS erythromycin base Allergy (Unknown, Verified 01/07/23 16:56) Unknown penicillin V Allergy (Unknown, Verified 01/07/23 16:56) anaphylaxis, throat swelling pollen extracts Allergy (Unknown, Verified 01/07/23 16:56) Unknown [place] Allergy (Unknown, Verified 01/07/23 16:56) tongue spits in two, tongue swelling Sulfa (Sulfonamide Antibiotics) Allergy (Unknown, Verified 01/07/23 16:56) hives Medication List - Last Reconciled 01/07/23 by Abdoulaye Lucas MD amlodipine 10 mg PO DAILY atorvastatin 10 mg PO BEDTIME 90 days blood sugar diagnostic (FreeStyle Lite Strips) 4x daily blood-glucose meter (FreeStyle Lite Meter kit) As directed dulaglutide 4.5 mg (0.5 mL) subcut QWEEK 3 months empagliflozin (Jardiance) 25 mg PO DAILY 90 days ergocalciferol (vitamin D2) 1,250 mcg PO QWEEK hydrochlorothiazide 25 mg PO DAILY irbesartan 300 mg PO DAILY lancets (FreeStyle Lancets) 4x daily metformin ER 1,000 mg (2 x 500 mg) PO BID 90 days omeprazole 20 mg PO DAILY 30 days pioglitazone 45 mg PO DAILY 90 days tadalafil 5 mg PO DAILY 90 days tamsulosin 0.4 mg PO BEDTIME 30 days Tobacco use date assessed: 01/07/23 Dental Screening Dental Screen Date: 01/07/23 Did you have a dental visit in the last 12 months?: Yes Did you have a dental problem in the last 6 months where you did not have access to dental care?: No Was dental information given to patient?: Patient has dentist HPI DM, HTN, HLD HPI Details Patient comes in today for his follow up visit States that he feels okay He denies any headaches or dizziness Denies any chest pains, no SOB No nausea/vomiting, no abdominal pain No change in bowel habits noted Needs a few of his Rx refilled Is also requesting for something to help with his prostate - states that he still has a weak urine stream when he goes to the bathroom Had his follow up labs done a couple of days ago - to discuss his results [facility] Medical History Obesity (BMI 30-39.9) HLD (hyperlipidemia) HTN (hypertension) T2DM (type 2 diabetes mellitus) Low back pain Morbid obesity with BMI of 40.0-44.9, adult Urethritis Allergic rhinitis Primary osteoarthritis of both knees GERD without esophagitis Dyslipidemia Benign essential hypertension Diabetes mellitus with hyperglycemia, without long-term current use of insulin Surgical History History of drainage of abscess History of umbilical hernia repair Family History Father No problems noted. Mother Chronic mental illness CVD (cardiovascular disease) Maternal Grandmother Brain cancer Brother CVD (cardiovascular disease) Afib Sister Afib Other Mental health problem Social History Housing: House Alcohol intake: never Patient Tobacco Use Status: Never used Tobacco e-Cigarette/Vaping Use: Never Used Second Hand Smoke Exposure: Yes service: No Current occupational status: employed Cognitive needs: No Hearing needs: Yes Vision needs: No Questionnaire PHQ-9 Over the last 2 weeks, how often have you been bothered by any of the following problems? 1. Little interest or pleasure in doing things: not at all 2. Feeling down, depressed, or hopeless: not at all 3. Trouble falling or staying asleep, or sleeping too much: not at all 4. Feeling tired or having little energy: not at all 5. Poor appetite or overeating: not at all 6. Feeling bad about yourself - or that you are a failure or have let yourself or your family down: not at all 7. Trouble concentrating on things, such as reading the newspaper or watching television: not at all 8. Moving or speaking so slowly that other people could have noticed. Or the opposite - being so fidgety or restless that you have been moving around a lot more than usual: not at all 9. Thoughts that you would be better off or of hurting yourself in some way: not at all Total score: 0 Depression Screening Interpretation: Negative Depression Screening Done: Yes [id number] - PHQ-9 Billing: Yes Source: Developed by Drs. Milind Vu, Aminah Cross, Donnie Coles and colleagues, with an educational breana from [employer]. Thrive Questionnaire Date Thrive assessed: 01/07/23 I am a: Patient What is your living situation today?: I have a steady place to live Within the past 12 months, did the food you bought not last and you didn't have the money to get more?: Never true Within the past 12 months, did you worry whether your food would run out before you got money to buy more?: Never true Do you have trouble paying for medicines?: No Do you have trouble getting transportation to medical appointments?: No Do you have trouble paying your heating and electricity bill?: No Do you have trouble taking care of your child, family member or friend?: No Do you have trouble with day-to-day activities such as bathing, preparing meals, shopping, managing finances, etc.?: No Are you currently unemployed and looking for a job?: No Are you interested in more education?: No Please select the resources that you would like help with: None Currently or been in a relationship where the following occur: no concerns reported AUDIT C Alcohol Use Questionnaire (AUDIT-C) 1. How often do you have a drink containing alcohol?: Never 3. How often do you have six or more drinks on one occasion?: Never Total Score: 0 Score Reviewed/Action Taken: Yes ROYER-7 AMB Questionnaire ROYER-7 Date ROYER - 7 assessed: 01/07/23 Feeling nervous, anxious, or on edge: 0 = Not at all Not being able to stop or control worryin = Not at all Worrying too much about different things: 0 = Not at all Trouble relaxin = Not at all Being so restless that it is hard to sit still: 0 = Not at all Becoming easily annoyed or irritable: 0 = Not at all Feeling afraid as if something awful might happen: 0 = Not at all Total ROYER-7 score (0-4 normal; 5-9 mild; 10-14 moderate; 15-21 severe): 0 Source: Developed by Drs. Milind Vu, Aminah Cross, Donnie Coles and colleagues, with an educational breana from [employer]. Review of Systems Const Denies chills, Reports fatigue, Denies fever(s) and Denies headache(s) ENT Denies dysphagia, Denies dizziness, Denies otalgia, Denies headache(s), Denies neck pain, Denies odynophagia and Denies sore throat Card Denies chest pain, Denies palpitations and Denies dyspnea Resp Denies cough and Denies dyspnea GI Denies abdominal pain, Denies constipation, Denies dysphagia, Denies heartburn, Denies diarrhea, Denies nausea, Denies odynophagia and Denies vomiting Reports oliguria (weak urinary stream), Denies dysuria, Reports nocturia and Denies urinary frequency Musc Denies neck pain Skin/Breast Denies rash Neuro Denies dizziness and Denies headache(s) Endo Reports fatigue and Denies palpitations Physical exam (Primary Care) Vital Signs: Last Vital Signs Pulse 87 01/07/23 16:06 BP 134/80 01/07/23 16:06 Pulse Ox 97 01/07/23 16:06 Oxygen Delivery Method Room Air 01/07/23 16:06 BMI result Body Mass Index 37.8 Tobacco/Smoking Status: Tobacco use Status Tobacco use date assessed 01/07/23 01/07/23 16:08 Patient Tobacco Use Status Never used Tobacco 01/07/23 16:08 e-Cigarette/Vaping Use Never Used 01/07/23 16:08 PHQ-9: PHQ-9 Score PHQ-9: Total score 0 01/07/23 22:50 Depression Screening Interpretation: Negative Thrive Assessment: Date of Thrive Assessment Date Thrive assessed 01/07/23 01/07/23 16:08 Currently or been in a relationship where the following occur: no concerns reported Const General: no acute distress and alert HENMT Ears: TM's normal bilaterally and EAC's normal Throat: Yes posterior oropharynx normal and Yes tonsils normal (no TP congestion) Neck Neck: Yes no lymphadenopathy and Yes supple Resp Auscultation: clear to auscultation bilaterally, no rales and no wheezes Cardio Rate: regular rate Rhythm: regular rhythm Heart sounds: no murmurs GI Palpation (GI): Soft to palpation and nontender Auscultation: normal bowel sounds General: Yes no CVA tenderness Back/Spine/Pelvis Back: no CVA tenderness Extrem General: Yes no clubbing, cyanosis or edema Results Reviewed Results Reviewed: Laboratory Tests 11/03/22 01/05/23 01/05/23 08:31 08:08 08:12 WBC 9.1 Hgb 16.4 Hct 49.9 Plt Count 290 Sodium 140 Potassium 3.9 Creatinine Estimated GFR Fasting Glucose 195 H Hemoglobin A1c % 8.8 H Calcium AST ALT Triglycerides Cholesterol LDL Cholesterol, Calc HDL Cholesterol TSH Ur Specific [place] >= 1.030 H Urine Protein Negative Urine Glucose (UA) >=1000 H Urine Blood Negative Microalb/Creat Ratio 16.5 01/05/23 08:12 WBC Hgb Hct Plt Count Sodium Potassium Creatinine 0.82 Estimated GFR > 60 Fasting Glucose Hemoglobin A1c % Calcium 9.5 AST 17 ALT 20 Triglycerides 166 H Cholesterol 168 LDL Cholesterol, Calc 96 HDL Cholesterol 39 L TSH 2.25 Ur Specific [place] Urine Protein Urine Glucose (UA) Urine Blood Microalb/Creat Ratio Assessment and Plan Assessment & Plan (1) Diabetes mellitus with hyperglycemia, without long-term current use of insulin: Code(s): E11.65 - Type 2 diabetes mellitus with hyperglycemia Qualifiers: Diabetes mellitus type: type 2 Qualified Code(s): E11.65 - Type 2 diabetes mellitus with hyperglycemia Plan: Patient's HgbA1c was at 8.8% a couple of months ago on 11/03/22 (in-office HgbA1c was at 9.9% a few months ago) - goal is HgbA1c of < 7.0% Reinforced diabetic diet Continue?Pioglitazone?45 mg once a day,?Trulicity?4.5 mg subcutaneous injection once a week, Metformin ER 500 mg 2 tablets BID and?Jardiance?25 mg once a day He was seen by Dr. Walekr a few weeks ago and states that he was considering switching him from Trulicity to Ozempic but decided to hold off for now and see how he does over the next few months since his HgbA1c appears to be improving Follow up with endocrinology as scheduled (2) Intermittent palpitations: Code(s): R00.2 - Palpitations Plan: Echocardiogram and Holter monitor done a few months ago were both normal and unrevealing Patient states that his symptoms of palpitations have subsided a lot lately Was seen by cardiology for evaluation a few months ago and advised continued observation for now but cautioned that possibility of AF remains high and he should call if his symptoms get worse at any time (3) Benign essential hypertension: Code(s): I10 - Essential (primary) hypertension Plan: Reinforced low-sodium diet -? goal is systolic BP of at least 120 to 130 mm or less Continue?Irbesartan?300 mg once a day,?Amlodipine?10 mg once a day and?Hydrochlorothiazide?25 mg once a day in AM (4) Dyslipidemia: Code(s): E78.5 - Hyperlipidemia, unspecified Plan: Results of his labs done a couple of days ago reviewed and discussed with patient Reinforced low cholesterol diet Continue Atorvastatin 10 mg QD Will recheck his labs and fasting lipids in 3 months for follow up (5) GERD without esophagitis: Code(s): K21.9 - Gastro-esophageal reflux disease without esophagitis Plan: Dietary restrictions reinforced Continue Omeprazole 20 mg QD (6) Allergic rhinitis: Code(s): J30.9 - Allergic rhinitis, unspecified Qualifiers: Allergic rhinitis seasonality: unspecified Allergic rhinitis trigger: other Qualified Code(s): J30.89 - Other allergic rhinitis Plan: Continue Cetirizine 10 mg QD PRN (7) Primary osteoarthritis of both knees: Code(s): M17.0 - Bilateral primary osteoarthritis of knee Plan: X-rays of both knees done back in September 2017 showed mild OA changes in both knees States (+) symptomatic relief with OTC Advil PRN To consider referral to Orthopedics if symptoms progress or worsen (8) Urethritis: Code(s): N34.2 - Other urethritis Plan: Continue Fluconazole 150 mg QD Follow-up with urology as scheduled for continuing management of his chronic/recurrent symptoms Patient states that he recently went online for a consultation through an unspecified medical website for his recurrent symptoms - was prescribed some oral Metronidazole and he is wondering if it is okay for him to take this Have advised him that he was likely prescribed Metronidazole presumably for a infection or STD like trichomoniasis Advised that if he has not never had an STD in the past and he and his partner are both monogamous, then there is really no reason for him to take this Advised that he can take it if he wants to try it since he already has the medication and it should not really cause him any problems in trying it (9) Benign prostatic hyperplasia with weak urinary stream: Code(s): N40.1 - Benign prostatic hyperplasia with lower urinary tract symptoms; R39.12 - Poor urinary stream Plan: Was most recently recommended to start on Tadalafil 5 mg QD - is concerned about potential side effects Patient advised that Tadalafil at the lower 5 mg dose daily is indicated primarily for BPH and NOT for ED and at the lower dose, the incidence of side effects is significantly lower and he should at least try it He had taken Tamsulosin in the past and would like to try Tamsulosin instead - Rx for Tamsulosin 0.4 mg Q HS sent Follow up with urology as scheduled (10) Obesity (BMI 30-39.9): Code(s): E66.9 - Obesity, unspecified Plan: Reinforced diet/exercise as tolerated/lose weight He is also now requesting for a referral to weight management - referral done Plan Follow up in 3 months Orders: Orders Comprehensive [place]. Panel Fast 3 Months E78.00 - Pure hypercholesterolemia, unspecified Lipid Panel 3 Months E78.00 - Pure hypercholesterolemia, unspecified Microalbumin, Random (w Creat) 3 Months E11.9 - Type 2 diabetes mellitus without complications TSH reflex Free T4 3 Months E78.00 - Pure hypercholesterolemia, unspecified Complete Blood Count Auto Diff 3 Months I10 - Essential (primary) hypertension Hemoglobin A1c 3 Months E11.9 - Type 2 diabetes mellitus without complications UA CC w/rflx Micro + Cult 3 Months R30.0 - Dysuria Vitamin D 25-OH Total 3 Months E55.9 - Vitamin D deficiency, unspecified Referrals Bariatric Surgery Referral E11.65 - Type 2 diabetes mellitus with hyperglycemia, E66.9 - Obesity, unspecified Medications: Changed From ergocalciferol (vitamin D2) 1,250 mcg PO QWEEK To ergocalciferol (vitamin D2) 1,250 mcg PO QWEEK 13 caps 3RF 3 months From tamsulosin 0.4 mg PO BEDTIME 30 days 30 caps 1RF N40.1 - Benign prostatic hyperplasia with lower urinary tract symptoms, R35.1 - Nocturia, R39.12 - Poor urinary stream To tamsulosin 0.4 mg PO BEDTIME 90 caps 1RF 90 days N40.1 - Benign prostatic hyperplasia with lower urinary tract symptoms, R35.1 - Nocturia, R39.12 - Poor urinary stream Refilled hydrochlorothiazide 25 mg PO DAILY 90 tabs 3RF atorvastatin 10 mg PO BEDTIME 90 tabs 3RF 90 days metformin ER 1,000 mg (2 x 500 mg) PO BID 360 tabs 1RF 90 days E11.65 - Type 2 diabetes mellitus with hyperglycemia irbesartan 300 mg PO DAILY 90 tabs 3RF tadalafil 5 mg PO DAILY 90 tabs 0RF sexual activity 90 days E11.69 - Type 2 diabetes mellitus with other specified complication, N40.1 - Benign prostatic hyperplasia with lower urinary tract symptoms, N52.1 - Erectile dysfunction due to diseases classified elsewhere, R39.12 - Poor urinary stream Coding Level of Care Code Est Pt Level 4 (47640) Diagnoses Type 2 diabetes mellitus with hyperglycemia, without long-term current use of insulin E11.65 Diabetes mellitus type: type 2 Intermittent palpitations R00.2 Benign essential hypertension I10 Dyslipidemia E78.5 GERD without esophagitis K21.9 Allergic rhinitis due to other allergic trigger, unspecified seasonality J30.89 Allergic rhinitis seasonality: unspecified Allergic rhinitis trigger: other Primary osteoarthritis of both knees M17.0 Urethritis N34.2 Benign prostatic hyperplasia with weak urinary stream N40.1; R39.12 Obesity (BMI 30-39.9) E66.9
[2023-01-07 16:06] VITALS: BP 134/80; PULSE 87; O2SAT 97; BMI 37.8
== END 2023-01-07 17:20 | disposition home or self-care (01) ==
PROVIDERS: PCP Internal Medicine; Visit Provider Internal Medicine
DX: E11.65 Type 2 diabetes mellitus with hyperglycemia (principal); R00.2 Palpitations; I10 Essential (primary) hypertension; E78.5 Hyperlipidemia, unspecified; K21.9 Gastro-esophageal reflux disease without esophagitis; J30.89 Other allergic rhinitis; M17.0 Bilateral primary osteoarthritis of knee; N34.2 Other urethritis; N40.1 Benign prostatic hyperplasia with lower urinary tract symptoms; R39.12 Poor urinary stream
CPT/HCPCS: 99214

== ENCOUNTER 2023-05-24 15:04 | Outpatient (AMB) | payer OTHER, SELFPAY ==
[2023-05-24 15:06] VITALS: BP 128/68; PULSE 96; BMI 37.8
--- NOTE | 2023-05-24 15:06 | A.OFFVIS_ITS ---
Intake Vital Signs 05/24/23 15:06 Height 5 ft 9 in Weight 255 lb 11.779 oz BMI 37.8 BP 128/68 Blood Pressure Location Lt brachial Position Sitting Pulse 96 Pulse Source Monitor Intake Visit Reasons: overdue follow-up c/o palpitations Intake Note: follow up palpitations Allergies codeine [CODEINE] Allergy (Severe, Verified 01/07/23 16:56) CONVULSIONS, anaphylaxis Penicillins [PENICILLINS] Allergy (Severe, Verified 01/07/23 16:56) ANAPHYLAXIS erythromycin base Allergy (Unknown, Verified 01/07/23 16:56) Unknown penicillin V Allergy (Unknown, Verified 01/07/23 16:56) anaphylaxis, throat swelling pollen extracts Allergy (Unknown, Verified 01/07/23 16:56) Unknown [place] Allergy (Unknown, Verified 01/07/23 16:56) tongue spits in two, tongue swelling Sulfa (Sulfonamide Antibiotics) Allergy (Unknown, Verified 01/07/23 16:56) hives HPI HPI Comments History of Present Illness Details 62-year-old male presents for an overdue appointment to discuss his palpitations. He was last seen November [address] Rushing regarding palpitations. He reports he gets an occasional skipped beat feeling. Happens at rest and with activity. He denies any chest pains, shortness of breath dizziness. He has been dieting to lose weight and be healthier, He avoids caffeine. 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 [facility] Medical History Obesity (BMI 30-39.9) HLD (hyperlipidemia) HTN (hypertension) T2DM (type 2 diabetes mellitus) Low back pain Morbid obesity with BMI of 40.0-44.9, adult Urethritis Allergic rhinitis Primary osteoarthritis of both knees GERD without esophagitis Dyslipidemia Benign essential hypertension Diabetes mellitus with hyperglycemia, without long-term current use of insulin Surgical History History of drainage of abscess History of umbilical hernia repair Family History Father No problems noted. Mother Chronic mental illness CVD (cardiovascular disease) Maternal Grandmother Brain cancer Brother CVD (cardiovascular disease) Afib Sister Afib Other Mental health problem Social History Housing: House Alcohol intake: never Patient Tobacco Use Status: Never used Tobacco e-Cigarette/Vaping Use: Never Used Second Hand Smoke Exposure: Yes service: No Current occupational status: employed Cognitive needs: No Hearing needs: Yes Vision needs: No Review of Systems Const Denies weakness ENT Denies dizziness Card Denies chest pain, Denies chest pain with activity, Denies syncope, Denies rapid heart rate, Denies pedal edema, Denies edema, Denies leg edema, Denies lightheadedness, Denies palpitations, Denies dyspnea, Denies dyspnea on exertion and Denies orthopnea Resp Denies cough, Denies dyspnea and Denies dyspnea on exertion GI Denies hematochezia and Denies change in stool character Musc Denies abnormal gait, Denies muscle cramps, Denies muscle weakness, Denies numbness, Denies radiating pain into limb and Denies tingling Neuro Denies abnormal gait, Denies dizziness, Denies syncope, Denies numbness, Denies tingling and Denies weakness Endo Denies palpitations Physical Exam Vital Signs: Last Vital Signs Pulse 96 05/24/23 15:06 BP 128/68 05/24/23 15:06 BMI result Body Mass Index 37.8 Const General: healthy appearing and no acute distress Orientation/consciousness: patient oriented x3 HEENT Head: Yes normal to inspection Eyes General: appearance normal, both eyes and all related structures Neck Neck: Yes normal visual inspection Chest Chest palpation & inspection: normal inspection of the chest Resp Effort & Inspection: normal respiratory effort Auscultation: clear to auscultation bilaterally Cardio Jugular venous distension: no JVD Palpation: normal PMI Rate: regular rate Rhythm: regular rhythm Heart sounds: S1 normal heart sound present, S2 normal heart sound present, no click, no gallops, no murmurs and no rubs GI Inspection: Yes normal to inspection Palpation (GI): Soft to palpation Skin General skin exam: no rashes or lesions noted Neuro General: patient oriented x3 Extrem General: Yes normal to inspection Psych Appearance: grossly normal Office Procedures EKG Details: EKG today. Normal Sinus Rhyth. Left posterior fascicular block. Rate 96 bpm. QRS 96ms. QTc 454 ms. HI 148ms. [id number], Complete Assessment & Plan Assessment & Plan (1) Intermittent palpitations: Code(s): R00.2 - Palpitations (2) HTN (hypertension): Code(s): I10 - Essential (primary) hypertension Qualifiers: Hypertension type: unspecified Qualified Code(s): I10 - Essential (primary) hypertension Plan Patient was worked up for palpitations in the past. He had a echocardiogram and holter monitor. Showing ejection fraction of 59% and no valvular pathology. Holter showed the rhythm sinus, average rate of 96 bpm. Range of 70-145 bpm. 42% of the time he was greater then 100 bpm with rate ectopy. Will recheck these for any changes and obtain new rate and rhythm and evaluate for ectopies and for EF, wall motion, or valve changes. ED care if needed. Avoid stimulants. Orders: Orders ECG holter monitor 48 hour 05/24/23 R00.2 - Palpitations CA echo transthoracic complete 05/24/23 R00.2 - Palpitations Coding Level of Care Code Est Pt Level 3 (29270) Diagnoses Intermittent palpitations R00.2 Hypertension, unspecified type I10 Hypertension type: unspecified CPT Codes EKG - CPT: [id number], Complete ([id number])
== END 2023-05-24 15:57 | disposition home or self-care (01) ==
PROVIDERS: PCP Internal Medicine; Visit Provider Nurse Practitioner
DX: R00.2 Palpitations (principal); I10 Essential (primary) hypertension
CPT/HCPCS: 93010; 99213

== ENCOUNTER → 2023-05-24 15:04 | Outpatient (BNVA) | payer OTHER, SELFPAY | PROVIDERS: PCP Internal Medicine; Visit Provider Nurse Practitioner | DX: R00.2 Palpitations (principal); I10 Essential (primary) hypertension; I44.5 Left posterior fascicular block | CPT/HCPCS: 93005; 99212 ==

== ENCOUNTER → 2023-07-26 13:25 | Outpatient (REF) | payer OTHER, SELFPAY ==
--- NOTE | 2023-07-26 13:29 | CA_ITS ---
Transthoracic Echocardiogram Patient (Last, First, Middle): John Beckman, Gender: Male Date of : 1960 Age: 62 Procedure Date: 07/26/2023 Procedure Type: Transthoracic Echocardiogram Location: OP Height: 175. 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 Normal LV ejection fraction 55-60% with grade 1 diastolic dysfunction with possible wall motion abnormality in the RCA territory 2. Cardiac valvular Dopplers within normal limits 3. Normal RV systolic pressure 4. No gross pericardial effusion Findings Procedure Information The patient declines contrast. Left Ventricle The left ventricle was not well visualized. Normal left ventricular cavity size. There is mildly increased left ventricular wall thickness. The left ventricular systolic function is normal. The visually estimated ejection fraction is between 55-60%. Spectral Doppler is indicative of an impaired relaxation filling pattern. E/E prime ratio is <8, consistent with normal filling pressures. Evidence suggests grade I (mild) diastolic dysfunction. Peak GLS is -13.9%, within normal limits. Wall Motion Rest Echo Findings The mid inferior segment is hypokinetic. The basal inferior segment is akinetic. All other scored wall segments showed normal motion. Right Ventricle The right ventricle was not well visualized. Atria The left atrium was not well visualized. There is lipomatous hypertrophy of the interatrial septum. Interatrial shunt cannot be excluded. The right atrium was not well visualized. Aortic Valve The aortic valve was not well visualized. There is no aortic valve stenosis. There is no aortic valve regurgitation. Mitral Valve The mitral valve was not well visualized. There is trace mitral valve regurgitation. There is no mitral valve stenosis. Pulmonic Valve The pulmonic valve was not well visualized. Tricuspid Valve Likely normal tricuspid valve structure and function. There is trace tricuspid valve regurgitation. The right ventricular systolic pressure is normal. The right ventricular systolic pressure is 11 mmHg. Normal right atrial pressure. There is no evidence of pulmonary hypertension. Great Vessels The aorta was not well visualized. The pulmonary artery was not well visualized. Venous The inferior vena cava is normal in size and collapses greater than 50% with inspiration. Pericardium/Pleural The pericardium was not well visualized. Prior Study Comparison No significant change compared to prior study dated: 07/07/2021. Measurements 2D Linear Measurements IVSd: 1.19 0.6-0.9/0.6-1.0 cm LVIDd: 4.07 3.9-5.3/4.2-5.9 cm LVIDd Index: 1.76 2.4-3.2/2.2-3.1 cm/m2 LVIDs: 3.04 2.0-3.6 cm LVPWd: 1.31 0.7-1.1 cm LA Diam: 4.00 2.7-3.8/3.0-4.0 cm LAIDs Index: 1.73 1.5-2.3 cm/m2 LV Mass: 224.82 67-162/88-224 g LV Mass Index: 97.33 43-95/49-115 g/m2 LVOT Diam: 2.30 3.0+(-)1.3 cm 2D Systolic Function EF 4C: 56.10 >55% EF 2C: 51.60 >55% EF BiP: 55.00 >55% Mitral Valve MV Pk E: 0.74 MV PK A: 0.84 MV Decel Time: 186.00 E/A: 0.90 E'Lateral: 9.68 E'Medial: 6.42 E/E' Med: 11.50 E/E' Lat: 7.70 PHT: 55.00 MVA PHT: 4.00 Decel Hayes: 3.98 Aortic Valve AoV Pk Elfego: 1.28 AoV Mn Elfego: 0.92 AoV VTI: 0.25 AoV Pk Grad: 7.00 Aov Mn Grad: 4.00 EDER Cont.VTI: 3.20 LVOT LVOT Pk Elfego: 0.95 LVOT Mn Elfego: 0.66 LVOT VTI: 0.19 LVOT Pk Grad: 4.00 LVOT Mn Grad: 2.00 LVOT Diam: 2.30 LVOT Area: 4.15 Diastolic Function MV Pk E: 0.74 MV Pk A: 0.84 E/A: 0.90 E'Medial: 6.42 E/E' Med: 11.50 E' Laterial: 9.68 E/E' Lat: 7.70 Right Ventricle TAPSE (mm): 20.30 TVS' Elfego: 12.00 Tricuspid Valve TR Pk Elfego: 1.43 TR Pk Grad: 8.00 RA Press: 3.00 RVSP: 11.00 Great Vessels Aorta Sinus of Valsalva: 3.60 2.0-3.5 cm Ao Asc: 4.10 2.1-3.4 cm Pulmonary Valve PV Pk Elfego: 0.92 Peak PV Grad: 3.00 Updated in Other Vendor System with Status of Final John Paul Rushing MD electronically signed on 07/27/2023 3:41:24 PM with status of Final
--- NOTE | 2023-07-26 13:29 | HM_ITS ---
Conclusion: 1. Patient was monitored for total period of 2 days 2. Baseline was normal sinus rhythm with average heart of 85 beats per minute 3. Rare PACs and PVCs noted without significant pauses 4. Patient reported 1 symptom in the diary that seems like correlating with isolated PACs MTDD
== END ==
LOC: HO.CARD 13:25
PROVIDERS: PCP Internal Medicine; Visit Provider Nurse Practitioner
DX: R00.2 Palpitations (principal)
CPT/HCPCS: 93225; 93306; 93356

== ENCOUNTER → 2023-07-26 13:29 | Outpatient (BNV) | payer OTHER, SELFPAY | PROVIDERS: PCP Internal Medicine; Visit Provider Internal Medicine Cardiovascular Disease | DX: I49.1 Atrial premature depolarization (principal); I49.3 Ventricular premature depolarization | CPT/HCPCS: 93227; 93306; 93356 ==

== ENCOUNTER 2023-09-25 14:39 | Outpatient (AMB) | payer OTHER, SELFPAY ==
--- NOTE | 2023-09-25 14:44 | MHC.OFFVIS ---
Vital Signs 09/25/23 14:45 Height 5 ft 9 in Weight 266 lb 12.149 oz BMI 39.4 BP 138/70 Blood Pressure Location Rt brachial Position Sitting Pulse 87 Pulse Source Pulse Oximeter Intake Visit Reasons: 2 mnth f/up echo/holter Allergies codeine [CODEINE] Allergy (Severe, Verified 09/25/23 23:35) CONVULSIONS, anaphylaxis Penicillins [PENICILLINS] Allergy (Severe, Verified 09/25/23 23:35) ANAPHYLAXIS erythromycin base Allergy (Unknown, Verified 09/25/23 23:35) Unknown penicillin V Allergy (Unknown, Verified 09/25/23 23:35) anaphylaxis, throat swelling pollen extracts Allergy (Unknown, Verified 09/25/23 23:35) Unknown [place] Allergy (Unknown, Verified 09/25/23 23:35) tongue spits in two, tongue swelling Sulfa (Sulfonamide Antibiotics) Allergy (Unknown, Verified 09/25/23 23:35) hives Medication List - Last Reconciled 09/25/23 by Savi Combs NP amlodipine 10 mg PO DAILY blood sugar diagnostic (FreeStyle Lite Strips) 4x daily blood-glucose meter (FreeStyle Lite Meter kit) As directed dulaglutide 4.5 mg (0.5 mL) subcut QWEEK 3 months empagliflozin (Jardiance) 25 mg PO DAILY 90 days ergocalciferol (vitamin D2) 1,250 mcg PO QWEEK 3 months hydrochlorothiazide 25 mg PO DAILY irbesartan 300 mg PO DAILY lancets (FreeStyle Lancets) 4x daily metformin ER 1,000 mg (2 x 500 mg) PO BID 90 days omeprazole 20 mg PO DAILY 30 days pioglitazone 45 mg PO DAILY 90 days tadalafil 5 mg PO DAILY 90 days HPI Comments Details: 62-year-old male presents for a follow-up after testing He reports he gets an occasional skipped beat feeling. Happens at rest and with activity. He denies any chest pains, shortness of breath dizziness. He has been dieting to lose weight and be healthier, He avoids caffeine. 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 [facility]LY [facility] Medical History Vitamin D deficiency Obesity (BMI 30-39.9) HLD (hyperlipidemia) HTN (hypertension) T2DM (type 2 diabetes mellitus) Low back pain Morbid obesity with BMI of 40.0-44.9, adult Urethritis Allergic rhinitis Primary osteoarthritis of both knees GERD without esophagitis Dyslipidemia Benign essential hypertension Diabetes mellitus with hyperglycemia, without long-term current use of insulin Surgical History History of drainage of abscess History of umbilical hernia repair Family History Father No problems noted. Mother Chronic mental illness CVD (cardiovascular disease) Maternal Grandmother Brain cancer Brother CVD (cardiovascular disease) Afib Sister Afib Other Mental health problem Social History Housing: House Alcohol intake: never Patient Tobacco Use Status: Never used Tobacco e-Cigarette/Vaping Use: Never Used Second Hand Smoke Exposure: Yes service: No Current occupational status: employed Cognitive needs: No Hearing needs: Yes Vision needs: No Review of Systems Const Denies weakness ENT Denies dizziness Card Denies chest pain, Denies chest pain with activity, Denies syncope, Denies rapid heart rate, Denies pedal edema, Denies edema, Denies leg edema, Denies lightheadedness, Denies palpitations, Denies dyspnea, Denies dyspnea on exertion and Denies orthopnea Resp Denies cough, Denies dyspnea and Denies dyspnea on exertion GI Denies hematochezia and Denies change in stool character Musc Denies abnormal gait, Denies muscle cramps, Denies muscle weakness, Denies numbness, Denies radiating pain into limb and Denies tingling Neuro Denies abnormal gait, Denies dizziness, Denies syncope, Denies numbness, Denies tingling and Denies weakness Endo Denies palpitations Physical Exam Vital Signs: Last Vital Signs Pulse 87 09/25/23 14:45 BP 138/70 09/25/23 14:45 BMI result Body Mass Index 39.4 Const General: healthy appearing and no acute distress Orientation/consciousness: patient oriented x3 HEENT Head: Yes normal to inspection Eyes General: appearance normal, both eyes and all related structures Neck Neck: Yes normal visual inspection Chest Chest palpation & inspection: normal inspection of the chest Resp Effort & Inspection: normal respiratory effort Auscultation: clear to auscultation bilaterally Cardio Jugular venous distension: no JVD Palpation: normal PMI Rate: regular rate Rhythm: regular rhythm Heart sounds: S1 normal heart sound present, S2 normal heart sound present, no click, no gallops, no murmurs and no rubs GI Inspection: Yes normal to inspection Palpation (GI): Soft to palpation Skin General skin exam: no rashes or lesions noted Neuro General: patient oriented x3 Extrem Other: left arm broken. General: Yes normal to inspection Psych Appearance: grossly normal Results AMB Hemoglobin A1c AMB Hemoglobin A1c 9.3 % Last Edit by CRISTINA Roberts on 09/25/23 16:41 Results Reviewed Results Reviewed: Echo Conclusions: - 1. Normal LV ejection fraction 55-60% with grade 1 diastolic dysfunction with possible wall motion abnormality in the RCA territory 2. Cardiac valvular Dopplers within normal limits 3. Normal RV systolic pressure 4. No gross pericardial effusion Holter Conclusion: 1. Patient was monitored for total period of 2 days 2. Baseline was normal sinus rhythm with average heart of 85 beats per minute 3. Rare PACs and PVCs noted without significant pauses 4. Patient reported 1 symptom in the diary that seems like correlating with isolated PACs Assessment & Plan Assessment & Plan (1) Palpitations: Code(s): R00.2 - Palpitations Category: Medical (2) HTN (hypertension): Code(s): I10 - Essential (primary) hypertension Category: Medical Qualifiers: Hypertension type: unspecified Qualified Code(s): I10 - Essential (primary) hypertension (3) Diabetes mellitus with hyperglycemia, without long-term current use of insulin: Code(s): E11.65 - Type 2 diabetes mellitus with hyperglycemia Category: Medical Qualifiers: Diabetes mellitus type: type 2 Qualified Code(s): E11.65 - Type 2 diabetes mellitus with hyperglycemia (4) Left wrist fracture: Code(s): S62.102A - Fracture of unspecified carpal bone, left wrist, initial encounter for closed fracture Category: Medical Qualifiers: Encounter type: sequela Fracture type: closed Qualified Code(s): S62.102S - Fracture of unspecified carpal bone, left wrist, sequela (5) Pre-operative cardiovascular examination: Code(s): Z01.810 - Encounter for preprocedural cardiovascular examination Plan Echo showed grade 1 diastolic dysfunction with possible WMA in the RCA territory. Advised to do a stress echo - has not been completed yet. Patient is suppose to undergo arm fx repair tomorrow. Currently on data available he is a intermediate to high risk for perioperative cardiovascular morbidity & mortality. Would advise waiting on surgery if possible. Dr. Traore at [facility] made aware. [place] showed are PACs and PVCs. Discussed triggers and how to avoid them. Report an increase. Blood glucose average has been 212 per patient. Tighter control advised. Blood pressure borderline. Will have him schedule stress echo and follow-up again after. ED care if needed. Coding Level of Care Code Est Pt Level 4 (01896) Diagnoses Palpitations R00.2 Hypertension, unspecified type I10 Hypertension type: unspecified Type 2 diabetes mellitus with hyperglycemia, without long-term current use of insulin E11.65 Diabetes mellitus type: type 2 Closed fracture of left wrist, sequela S62.102S Encounter type: sequela Fracture type: closed Pre-operative cardiovascular examination Z01.810
[2023-09-25 14:45] VITALS: BP 138/70; PULSE 87; BMI 39.4
== END 2023-09-25 15:35 | disposition home or self-care (01) ==
PROVIDERS: PCP Internal Medicine; Visit Provider Nurse Practitioner
DX: R00.2 Palpitations (principal); I10 Essential (primary) hypertension; E11.65 Type 2 diabetes mellitus with hyperglycemia; S62.102S Fracture of unspecified carpal bone, left wrist, sequela; Z01.810 Encounter for preprocedural cardiovascular examination
CPT/HCPCS: 99214

== ENCOUNTER → 2023-09-25 14:39 | Outpatient (BNVA) | payer OTHER, SELFPAY | PROVIDERS: PCP Internal Medicine; Visit Provider Nurse Practitioner | DX: Z01.810 Encounter for preprocedural cardiovascular examination (principal); R00.2 Palpitations; I51.89 Other ill-defined heart diseases; I10 Essential (primary) hypertension; E11.65 Type 2 diabetes mellitus with hyperglycemia | CPT/HCPCS: 99212 ==

== ENCOUNTER 2023-09-25 15:43 | Outpatient (AMB) | payer OTHER, SELFPAY ==
[2023-09-25 15:45] VITALS: BP 138/66; PULSE 104; O2SAT 95; BMI 39.1
--- NOTE | 2023-09-25 15:45 | MHC.PC.OV ---
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 Required: No Allergies codeine [CODEINE] Allergy (Severe, Verified 09/25/23 23:35) CONVULSIONS, anaphylaxis Penicillins [PENICILLINS] Allergy (Severe, Verified 09/25/23 23:35) ANAPHYLAXIS erythromycin base Allergy (Unknown, Verified 09/25/23 23:35) Unknown penicillin V Allergy (Unknown, Verified 09/25/23 23:35) anaphylaxis, throat swelling pollen extracts Allergy (Unknown, Verified 09/25/23 23:35) Unknown [place] Allergy (Unknown, Verified 09/25/23 23:35) tongue spits in two, tongue swelling Sulfa (Sulfonamide Antibiotics) Allergy (Unknown, Verified 09/25/23 23:35) hives Medication List - Last Reconciled 09/25/23 by Abdoulaye Lucas MD amlodipine 10 mg PO DAILY blood sugar diagnostic (FreeStyle Lite Strips) 4x daily blood-glucose meter (FreeStyle Lite Meter kit) As directed dulaglutide 4.5 mg (0.5 mL) subcut QWEEK 3 months empagliflozin (Jardiance) 25 mg PO DAILY 90 days ergocalciferol (vitamin D2) 1,250 mcg PO QWEEK 3 months hydrochlorothiazide 25 mg PO DAILY irbesartan 300 mg PO DAILY lancets (FreeStyle Lancets) 4x daily metformin ER 1,000 mg (2 x 500 mg) PO BID 90 days omeprazole 20 mg PO DAILY 30 days pioglitazone 45 mg PO DAILY 90 days tadalafil 5 mg PO DAILY 90 days Tobacco use date assessed: 09/25/23 Dental Screening Dental Screen Date: 09/25/23 HPI DM F/U HPI Details Patient comes in today for his follow up visit - was last seen here in 12/2022 States that he has been off his Trulicity and Jardiance for the past couple of weeks as he was instructed to stop taking both meds so he can have his scheduled procedures done He had his screening colonoscopy done last week - colonoscopy came out normal and he was advised to have his colonoscopy repeated in 10 years He unfortunately broke his left wrist when he fell off the back of his truck a few days ago - is scheduled for orthopedic surgery for his wrist tomorrow so he remains off his Trulicity and Jardiance He denies any headaches or dizziness Denies any chest pains, no SOB No nausea/vomiting, no abdominal pain No change in bowel habits noted He continues to follow up with Dr. Walker for his diabetes He's had no follow up labs done recently [facility] Medical History (Updated 09/26/23 @ 04:21 by Abdoulaye Lucas MD) Vitamin D deficiency Obesity (BMI 30-39.9) HLD (hyperlipidemia) HTN (hypertension) T2DM (type 2 diabetes mellitus) Low back pain Morbid obesity with BMI of 40.0-44.9, adult Urethritis Allergic rhinitis Primary osteoarthritis of both knees GERD without esophagitis Dyslipidemia Benign essential hypertension Diabetes mellitus with hyperglycemia, without long-term current use of insulin Surgical History History of drainage of abscess History of umbilical hernia repair Family History Father No problems noted. Mother Chronic mental illness CVD (cardiovascular disease) Maternal Grandmother Brain cancer Brother CVD (cardiovascular disease) Afib Sister Afib Other Mental health problem Social History Housing: House Alcohol intake: never Patient Tobacco Use Status: Never used Tobacco e-Cigarette/Vaping Use: Never Used Second Hand Smoke Exposure: Yes service: No Current occupational status: employed Cognitive needs: No Hearing needs: Yes Vision needs: No Questionnaire PHQ-9 Over the last 2 weeks, how often have you been bothered by any of the following problems? 1. Little interest or pleasure in doing things: not at all 2. Feeling down, depressed, or hopeless: not at all 3. Trouble falling or staying asleep, or sleeping too much: not at all 4. Feeling tired or having little energy: not at all 5. Poor appetite or overeating: not at all 6. Feeling bad about yourself - or that you are a failure or have let yourself or your family down: not at all 7. Trouble concentrating on things, such as reading the newspaper or watching television: not at all 8. Moving or speaking so slowly that other people could have noticed. Or the opposite - being so fidgety or restless that you have been moving around a lot more than usual: not at all 9. Thoughts that you would be better off or of hurting yourself in some way: not at all Total score: 0 Depression Screening Interpretation: Negative Depression Screening Done: Yes 27695 - PHQ-9 Billing: Yes Source: Developed by Drs. Milind Vu, Aminah Cross, Donnie Coles and colleagues, with an educational breana from [employer]. Thrive Questionnaire Date Thrive assessed: 09/25/23 I am a: Patient What is your living situation today?: I have a steady place to live Within the past 12 months, did the food you bought not last and you didn't have the money to get more?: Never true Within the past 12 months, did you worry whether your food would run out before you got money to buy more?: Never true Do you have trouble paying for medicines?: No Do you have trouble getting transportation to medical appointments?: No Do you have trouble paying your heating and electricity bill?: No Do you have trouble taking care of your child, family member or friend?: No Do you have trouble with day-to-day activities such as bathing, preparing meals, shopping, managing finances, etc.?: No Are you currently unemployed and looking for a job?: No Are you interested in more education?: No Please select the resources that you would like help with: None Currently or been in a relationship where the following occur: No concerns reported THRIVE Score: 0 AUDIT C Alcohol Use Questionnaire (AUDIT-C) 1. How often do you have a drink containing alcohol?: Never 3. How often do you have six or more drinks on one occasion?: Never Total Score: 0 Score Reviewed/Action Taken: Yes ROYER-7 AMB Questionnaire ROYER-7 Date ROYER - 7 assessed: 01/07/23 Source: Developed by Drs. Milind Vu, Aminah Cross, Donnie Coles and colleagues, with an educational breana from [employer]. Review of Systems Const Denies chills, Reports fatigue, Denies fever(s) and Denies headache(s) ENT Denies dysphagia, Denies dizziness, Denies otalgia, Denies headache(s), Denies neck pain, Denies odynophagia and Denies sore throat Card Denies chest pain, Denies palpitations and Denies dyspnea Resp Denies cough and Denies dyspnea GI Denies abdominal pain, Denies constipation, Denies dysphagia, Denies heartburn, Denies diarrhea, Denies nausea, Denies odynophagia and Denies vomiting Reports oliguria (weak urinary stream), Denies dysuria, Reports nocturia and Denies urinary frequency Musc Denies back pain, Reports arthralgias (left wrist - currently in a cast) and Denies neck pain Skin/Breast Denies rash Neuro Denies dizziness and Denies headache(s) Endo Reports fatigue and Denies palpitations Physical exam (Primary Care) Vital Signs: Last Vital Signs Pulse 104 H 09/25/23 15:45 BP 138/66 09/25/23 15:45 Pulse Ox 95 09/25/23 15:45 Oxygen Delivery Method Room Air 09/25/23 15:45 BMI result Body Mass Index 39.1 Tobacco/Smoking Status: Tobacco use Status Tobacco use date assessed 09/25/23 09/25/23 15:46 Patient Tobacco Use Status Never used Tobacco 09/25/23 15:46 e-Cigarette/Vaping Use Never Used 09/25/23 15:46 Depression Screening Interpretation: Negative Thrive Assessment: Date of Thrive Assessment Date Thrive assessed 01/07/23 09/25/23 15:46 Currently or been in a relationship where the following occur: No concerns reported Const General: no acute distress and alert HENMT Ears: TM's normal bilaterally and EAC's normal Throat: Yes posterior oropharynx normal and Yes tonsils normal (no TP congestion) Neck Neck: Yes no lymphadenopathy and Yes supple Thyroid: Thyroid normal Resp Auscultation: clear to auscultation bilaterally, no rales and no wheezes Cardio Rate: regular rate Rhythm: regular rhythm Heart sounds: no murmurs GI Palpation (GI): Soft to palpation and nontender Auscultation: normal bowel sounds General: Yes no CVA tenderness Back/Spine/Pelvis Back: no CVA tenderness Thoracic/Lumbar Spine: No lumbar spinal tenderness Skin Rashes: no rashes Extrem Other: left wrist/hand currently immobilized in a makeshift cast General: Yes no clubbing, cyanosis or edema Results AMB Hemoglobin A1c AMB Hemoglobin A1c 9.3 % Last Edit by CRISTINA Roberts on 09/25/23 16:41 Results Reviewed Results Reviewed: Laboratory Last Values Hgb A1c (Clinic) 9.3 % (4.0-6.0) H 09/25/23 14:13 Assessment and Plan Assessment & Plan (1) Diabetes mellitus with hyperglycemia, without long-term current use of insulin: Code(s): E11.65 - Type 2 diabetes mellitus with hyperglycemia Qualifiers: Diabetes mellitus type: type 2 Qualified Code(s): E11.65 - Type 2 diabetes mellitus with hyperglycemia Plan: His in-office HgbA1c is at 9.3% today (HgbA1c was at 8.8% when last checked on 11/03/22) - goal is HgbA1c of < 7.0% Reinforced diabetic diet Continue?Pioglitazone?45 mg once a day,?Metformin ER 500 mg 2 tablets BID, Trulicity?4.5 mg subcutaneous injection once a week and?Jardiance?25 mg once a day - he has been OFF both Trulicity and Jardiance for a couple of weeks now and is advised to start back on them as soon as he's had his left wrist surgery done tomorrow Follow up with endocrinology (Dr. Walker) as scheduled (2) Intermittent palpitations: Code(s): R00.2 - Palpitations Plan: Echocardiogram and Holter monitor done a few months ago were both normal and unrevealing Patient states that his symptoms (palpitations) have subsided a lot lately He was seen by cardiology for evaluation and was advised continued observation but was cautioned that the possibility of AF remains high and he should call if his symptoms get worse at any time Follow up with cardiology as scheduled (3) Benign essential hypertension: Code(s): I10 - Essential (primary) hypertension Plan: Reinforced low-sodium diet -? goal is systolic BP of at least 120 to 130 mm or less Continue?Irbesartan?300 mg once a day,?Amlodipine?10 mg once a day and?Hydrochlorothiazide?25 mg once a day in AM (4) Dyslipidemia: Code(s): E78.5 - Hyperlipidemia, unspecified Plan: He has not had any follow up labs done recently - will send him for some labs [facility] Reinforced low cholesterol diet Continue Atorvastatin 10 mg QD (5) GERD without esophagitis: Code(s): K21.9 - Gastro-esophageal reflux disease without esophagitis Plan: Dietary restrictions reinforced Continue Omeprazole 20 mg QD (6) Allergic rhinitis: Code(s): J30.9 - Allergic rhinitis, unspecified Qualifiers: Allergic rhinitis seasonality: unspecified Allergic rhinitis trigger: other Qualified Code(s): J30.89 - Other allergic rhinitis Plan: Continue Cetirizine 10 mg QD PRN (7) Vitamin D deficiency: Code(s): E55.9 - Vitamin D deficiency, unspecified Plan: Continue Vitamin D2 1250 mcg once a week (8) Primary osteoarthritis of both knees: Code(s): M17.0 - Bilateral primary osteoarthritis of knee Plan: X-rays of both knees done back in September 2017 showed mild OA changes in both knees States (+) symptomatic relief with OTC Advil PRN To consider referral to Orthopedics if his knee symptoms progress or get worse (9) Left wrist fracture: Code(s): S62.102A - Fracture of unspecified carpal bone, left wrist, initial encounter for closed fracture Qualifiers: Encounter type: sequela Fracture type: closed Qualified Code(s): S62.102S - Fracture of unspecified carpal bone, left wrist, sequela Plan: Injury was sustained a few days ago when he fell of the back of his truck He is scheduled for orthopedic/surgical repair of his left wrist tomorrow Follow up with orthopedics as scheduled (10) Urethritis: Code(s): N34.2 - Other urethritis Plan: Continue Fluconazole 150 mg QD Follow-up with urology as scheduled for continuing management of his chronic/recurrent symptoms (11) Benign prostatic hyperplasia with weak urinary stream: Code(s): N40.1 - Benign prostatic hyperplasia with lower urinary tract symptoms; R39.12 - Poor urinary stream Plan: Continue Tadalafil 5 mg QD Follow up with urology as scheduled (12) Obesity (BMI 30-39.9): Code(s): E66.9 - Obesity, unspecified Plan: Reinforced diet/exercise as tolerated/lose weight Plan Follow up in 3 months Orders: Orders Comprehensive [place]. Panel Fast 09/25/23 E78.00 - Pure hypercholesterolemia, unspecified Microalbumin, Random (w Creat) 09/25/23 E11.9 - Type 2 diabetes mellitus without complications TSH reflex Free T4 09/25/23 E78.00 - Pure hypercholesterolemia, unspecified UA CC w/rflx Micro + Cult 09/25/23 R30.0 - Dysuria Vitamin D 25-OH Total 09/25/23 E55.9 - Vitamin D deficiency, unspecified AMB Hemoglobin A1c 09/25/23 E11.65 - Type 2 diabetes mellitus with hyperglycemia Complete Blood Count Auto Diff 09/25/23 D64.9 - Anemia, unspecified Lipid Panel 09/25/23 E78.00 - Pure hypercholesterolemia, unspecified Coding Level of Care Code Est Pt Level 4 (59188) Diagnoses Type 2 diabetes mellitus with hyperglycemia, without long-term current use of insulin E11.65 Diabetes mellitus type: type 2 Intermittent palpitations R00.2 Benign essential hypertension I10 Dyslipidemia E78.5 GERD without esophagitis K21.9 Allergic rhinitis due to other allergic trigger, unspecified seasonality J30.89 Allergic rhinitis seasonality: unspecified Allergic rhinitis trigger: other Vitamin D deficiency E55.9 Primary osteoarthritis of both knees M17.0 Closed fracture of left wrist, sequela S62.102S Encounter type: sequela Fracture type: closed Urethritis N34.2 Benign prostatic hyperplasia with weak urinary stream N40.1; R39.12 Obesity (BMI 30-39.9) E66.9
== END 2023-09-25 17:17 | disposition home or self-care (01) ==
PROVIDERS: PCP Internal Medicine; Visit Provider Internal Medicine
DX: E11.65 Type 2 diabetes mellitus with hyperglycemia (principal)
CPT/HCPCS: 83036; 99214

== ENCOUNTER 2023-11-07 13:07 | Outpatient (AMB) | payer OTHER, SELFPAY ==
[2023-11-07 13:09] VITALS: BP 142/74; PULSE 103; O2SAT 97; BMI 38.1
--- NOTE | 2023-11-07 13:09 | MHC.PC.OV ---
Vital Signs 11/07/23 13:09 Height 5 ft 9 in Weight 258 lb BMI 38.1 BP 142/74 H Blood Pressure Location Rt brachial Position Sitting Pulse 103 H Pulse Source Pulse Oximeter Pulse Oximetry (%) 97 Oxygen Delivery Method Room Air Intake Visit Reasons: Discuss a referral for ENT Physical Education Specialist Required: No Accompanied by: Self / Same As Patient Allergies codeine [CODEINE] Allergy (Severe, Verified 11/07/23 13:12) CONVULSIONS, anaphylaxis Penicillins [PENICILLINS] Allergy (Severe, Verified 11/07/23 13:12) ANAPHYLAXIS erythromycin base Allergy (Unknown, Verified 11/07/23 13:12) Unknown penicillin V Allergy (Unknown, Verified 11/07/23 13:12) anaphylaxis, throat swelling pollen extracts Allergy (Unknown, Verified 11/07/23 13:12) Unknown [place] Allergy (Unknown, Verified 11/07/23 13:12) tongue spits in two, tongue swelling Sulfa (Sulfonamide Antibiotics) Allergy (Unknown, Verified 11/07/23 13:12) hives Tobacco use date assessed: 09/25/23 Dental Screening Dental Screen Date: 09/25/23 HPI Discuss a referral for ENT HPI Details 63-year-old male with past medical history of diabetes, hypertension, GERD, hyperlipidemia, BPH last seen by Dr. Lucas coming in for acute problem. Patient states he feels like his ears have been blocked for several weeks and complains of a popping sound frequently. He notes the blockages worsened when lying on 1 side. He was evaluated at urgent care and did have his ears cleaned via ear lavage and was diagnosed with eustachian tube dysfunction. He was given 2 medications but is unsure of the names. He also mentions he had a dental procedure this week and while undergoing the procedure he had an anxiety attack and was unable to complete the procedure. He now mentions he has increased anxiety going back to the dentist for completion of the surgery would like something to help with his anxiety. [facility] Medical History Abnormal echocardiogram Vitamin D deficiency Obesity (BMI 30-39.9) HLD (hyperlipidemia) HTN (hypertension) T2DM (type 2 diabetes mellitus) Low back pain Morbid obesity with BMI of 40.0-44.9, adult Urethritis Allergic rhinitis Primary osteoarthritis of both knees GERD without esophagitis Dyslipidemia Benign essential hypertension Diabetes mellitus with hyperglycemia, without long-term current use of insulin Surgical History History of drainage of abscess History of umbilical hernia repair Family History Father No problems noted. Mother Chronic mental illness CVD (cardiovascular disease) Maternal Grandmother Brain cancer Brother CVD (cardiovascular disease) Afib Sister Afib Other Mental health problem Social History Housing: House Alcohol intake: never Patient Tobacco Use Status: Never used Tobacco e-Cigarette/Vaping Use: Never Used Second Hand Smoke Exposure: Yes service: No Current occupational status: employed Cognitive needs: No Hearing needs: Yes Vision needs: No Questionnaire PHQ-9 Over the last 2 weeks, how often have you been bothered by any of the following problems? 1. Little interest or pleasure in doing things: not at all 2. Feeling down, depressed, or hopeless: not at all 3. Trouble falling or staying asleep, or sleeping too much: not at all 4. Feeling tired or having little energy: not at all 5. Poor appetite or overeating: not at all 6. Feeling bad about yourself - or that you are a failure or have let yourself or your family down: not at all 7. Trouble concentrating on things, such as reading the newspaper or watching television: not at all 8. Moving or speaking so slowly that other people could have noticed. Or the opposite - being so fidgety or restless that you have been moving around a lot more than usual: not at all 9. Thoughts that you would be better off or of hurting yourself in some way: not at all Total score: 0 Depression Screening Interpretation: Negative Depression Screening Done: Yes 26079 - PHQ-9 Billing: Yes Source: Developed by Drs. Milind Vu, Aminah Cross, Donnie Coles and colleagues, with an educational breana from [employer]. Thrive Questionnaire Date Thrive assessed: 09/25/23 AUDIT C Alcohol Use Questionnaire (AUDIT-C) 1. How often do you have a drink containing alcohol?: Never 3. How often do you have six or more drinks on one occasion?: Never Total Score: 0 Score Reviewed/Action Taken: Yes ROYER-7 AMB Questionnaire ROYER-7 Date ROYER - 7 assessed: 11/07/23 Feeling nervous, anxious, or on edge: 0 = Not at all Not being able to stop or control worryin = Not at all Worrying too much about different things: 0 = Not at all Trouble relaxin = Not at all Being so restless that it is hard to sit still: 0 = Not at all Becoming easily annoyed or irritable: 0 = Not at all Feeling afraid as if something awful might happen: 0 = Not at all Total ROYER-7 score (0-4 normal; 5-9 mild; 10-14 moderate; 15-21 severe): 0 Source: Developed by Drs. Milind Vu, Aminah Cross, Donnie Coles and colleagues, with an educational breana from [employer]. ROYER-7 Assessment Billing ROYER-7 Assessment Tool: ROYER-7 Assessment 31993 Review of Systems Const Denies chills, Denies fever(s) and Denies headache(s) Eyes Reports no additional complaints ENT Reports as per HPI, Denies otalgia, Denies facial pain, Denies headache(s), Denies nasal congestion and Reports tinnitus Card Denies chest pain, Denies lightheadedness and Denies dyspnea Resp Denies cough and Denies dyspnea GI Reports no additional complaints Reports no additional complaints Musc Reports no additional complaints Skin/Breast Reports system reviewed and no additional complaints, except as documented Neuro Reports no additional complaints and Denies headache(s) Physical exam (Primary Care) Vital Signs: Last Vital Signs Pulse 103 H 11/07/23 13:09 BP 142/74 H 11/07/23 13:09 Pulse Ox 97 11/07/23 13:09 Oxygen Delivery Method Room Air 11/07/23 13:09 BMI result Body Mass Index 38.1 Tobacco/Smoking Status: Tobacco use Status Tobacco use date assessed 09/25/23 11/07/23 13:09 Patient Tobacco Use Status Never used Tobacco 11/07/23 13:09 e-Cigarette/Vaping Use Never Used 11/07/23 13:09 PHQ-9: PHQ-9 Score PHQ-9: Total score 0 11/07/23 13:17 Depression Screening Interpretation: Negative Thrive Assessment: Date of Thrive Assessment Date Thrive assessed 09/25/23 11/07/23 13:09 Const General: cooperative, healthy appearing, comfortable and no acute distress Orientation/consciousness: patient oriented x3 HENMT Other: Bilateral ear canals are clear and TMs are intact with well aerated middle ear spaces Head: Yes normocephalic Ears: hearing grossly normal bilaterally General nose exam: Normal external nose present Eyes General: appearance normal, both eyes and all related structures Conjunctivae: conjunctivae normal Neck Neck: Yes full ROM and Yes no lymphadenopathy Resp Effort & Inspection: normal respiratory effort Auscultation: clear to auscultation bilaterally, no crackles, no rales, no rhonchi and no wheezes Cardio Rate: regular rate Rhythm: regular rhythm Skin General skin exam: no rashes or lesions noted Neuro General: patient oriented x3 Gait exam (Neuro): Normal gait present Extrem General: Yes normal to inspection, Yes full ROM and No edema Psych Affect: normal affect Attitude: cooperative Insight: Good insight present (Psych) Judgement: Good judgement present (Psych) Assessment and Plan Assessment & Plan (1) Eustachian tube dysfunction: Code(s): H69.90 - Unspecified Eustachian tube disorder, unspecified ear Plan: Referral was placed to ear nose and throat at patient request. Discussed with patient at length the cause of Eustachian tube dysfunction is most likely allergies in his case due to the sudden onset this past summer. Recommended [id number] antihistamine along with antihistamine nasal spray. Patient will also be referred for allergy testing. (2) Anxiety: Code(s): F41.9 - Anxiety disorder, unspecified Plan: Patient states he has increased anxiety surrounding the dental procedure scheduled for Saturday and is worried about having another anxiety attack. Discussed with Dr. Lucas who recommended Lorazepam which was sent to the pharmacy and did inform patient this medication would not be refilled. Plan This note was constructed using voice recognition software. While every effort has been made to ensure accuracy and manager image, still areas may have been included sometimes these areas may affect the content or meeting of the given symptoms. Total time spent caring for the patient today was 30 minutes. This includes time spent before the visit reviewing the chart, time spent during the visit, and time spent after the visit and documentation. Orders: Referrals Allergy & Immunology Referral J30.2 - Other seasonal allergic rhinitis Ear/Nose/Throat Referral H61.20 - Impacted cerumen, unspecified ear, H69.90 - Unspecified Eustachian tube disorder, unspecified ear Medications: New lorazepam take one tab prior to dental procedure; two if anxiety is not controlled. 0.5 mg PO DAILY PRN 2 tabs 0RF anxiety lorazepam take one tab prior to dental procedure; may take additional one tab if anxiety is not controlled. 0.5 mg PO DAILY PRN 2 tabs 0RF anxiety azelastine administer into each nostril 1 spray intranasal BID 30 mL 0RF Coding Level of Care Code Est Pt Level 3 (63374) Diagnoses Eustachian tube dysfunction H69.90 Anxiety F41.9 Additional Codes ROYER-7 Assessment Billing - ROYER-7 Assessment Tool: ROYER-7 Assessment 65782 ([id number])
== END 2023-11-07 13:58 | disposition home or self-care (01) ==
PROVIDERS: PCP Internal Medicine
DX: H69.93 Unspecified Eustachian tube disorder, bilateral (principal); F41.9 Anxiety disorder, unspecified
CPT/HCPCS: 99213

== ENCOUNTER 2024-01-09 07:19 | Outpatient (REF) | payer OTHER, SELFPAY ==
[2024-01-09 07:44] LABS: MANUAL DIFF FLAG NO
[2024-01-09 08:00] LABS: Appearance Urine Clear; Color Urine Yellow; Glucose Urine UA >=1000 mg/dL (Negative); Leukocyte Esterase Urine Negative (Negative); Nitrite Urine Negative (Negative); Specific Gravity - Urine >= 1.030 (1.005-1.025); UMIC TRIGGER UACC YES; Urine Blood Negative (Negative); Urine Ketones Trace mg/dL (Negative); Urine Protein Negative (Neg-Trace)
[2024-01-09 08:06] LABS: Bacteria Urine None Seen (None Seen); Hyaline Casts Urine 0-2 /LPF (0-2); RBC Urine 0-2 /HPF (0-2); Squamous Epithelial Cell Urine 0-2 /HPF (0-2); WBC Urine 0-5 /HPF (0-5)
[2024-01-09 08:47] LABS: Creatinine Urine 50.62 mg/dL; Microalbum/Creatinine Ratio Ur 33.5 ug/mg cr (<30)
[2024-01-09 08:49] LABS: Basophils Absolute Auto 0.1 X10*3/uL (0.0-0.2); Basophils Percent Auto 0.7 % (0-2); Eosinophils Absolute Auto 0.3 X10*3/uL (0.0-0.4); Eosinophils Percent Auto 2.5 % (0-4); Hemoglobin 17.1 g/dl (14.0-18.0); Imm Gran Abs Auto 0.04 X10*3/uL (0.00-0.03); Imm Gran Pct Auto 0.4 % (0.0-0.4); Lymphocytes Absolute Auto 2.2 X10*3/uL (1.2-4.9); Lymphocytes Percent Auto 20.4 % (20-40); Mean Corpuscular HGB Conc 33.5 g/dl (31.0-36.0); Mean Corpuscular Hemoglobin 30.3 pg (27.0-33.0); Mean Corpuscular Volume 90.4 fL (80.0-98.0); Mean Platelet Volume 9.6 fL (9.4-12.4); Monocytes Absolute Auto 0.9 X10*3/uL (0.1-1.2); Monocytes Percent Auto 8.5 % (2-11); Neutrophils Absolute Auto 7.2 x10*3/uL (2.0-8.3); Neutrophils Percent Auto 67.5 % (45-73); Platelet Count 313 X10*3/uL (160-400); Red Blood Count 5.64 X10*6/uL (4.60-5.80); Red Cell Distribution Width 13.4 % (11.0-16.0); White Blood Count 10.6 X10*3/uL (4.8-10.8)
[2024-01-09 09:26] LABS: Alanine Aminotransferase 23 U/L (0-40); Albumin Level 4.7 g/dL (3.5-5.0); Alkaline Phosphatase 91 U/L (39-117); Anion Gap 19 (12-20); Aspartate Amino Transferase 19 U/L (5-37); Bilirubin Total 1.4 mg/dL (0.0-1.0); Blood Urea Nitrogen 12 mg/dL (9-16); Calcium 10.7 mg/dL (8.4-10.2); Carbon Dioxide 30 mmol/L (22-29); Chloride 97 mmol/L (96-108); Cholesterol 201 mg/dL (<200); Estimated Average Glucose 220 mg/dL; Estimated Glomerular Filt Rate > 60; Glucose Fasting 197 mg/dL (60-99); HDL Cholesterol 44 mg/dL (>40); Hemoglobin A1C 327.5887 umol/L; Hemoglobin A1c % 9.3 % (<6.0); LDL Cholesterol Calculated 82 mg/dL (<100); Potassium 3.5 mmol/L (3.3-5.1); Sodium 142 mmol/L (135-145); Total Hemoglobin (HGBA1C) 4190.3454 umol/L; Total Protein 8.2 g/dL (6.5-8.0); Triglycerides 376 mg/dL (<150)
[2024-01-09 09:43] LABS: TSH reflex Free T4 3.08 uIU/mL (0.32-4.0); Vitamin D 25-OH Total 20.4 ng/mL (>30)
== END 2024-01-09 07:20 | disposition home or self-care (01) ==
LOC: HO.LAB 07:19
PROVIDERS: PCP Internal Medicine; Visit Provider Internal Medicine
DX: I10 Essential (primary) hypertension (principal); E55.9 Vitamin D deficiency, unspecified; E78.00 Pure hypercholesterolemia, unspecified; E11.9 Type 2 diabetes mellitus without complications
CPT/HCPCS: 36415; 80053; 80061; 81001; 81003; 82043; 82306; 82570; 83036; 84443; 85025

== ENCOUNTER → 2024-01-13 10:33 | Outpatient (REF) | payer OTHER, SELFPAY ==
--- NOTE | 2024-01-13 10:37 | CA_ITS ---
Acquisition Time: 2024-01-13 10:37:57 Total Exercise Time: 00:05:20 Test Indications: ABN ECHO Medications: SEE H Protocol: KELSI Max HR: 166 BPM 104% of Pred: 159 BPM Max BP: 168/070 mmHG Max Work Load: 7.0 METS Exercise stress test with exercise 5 mins 20 secs of Kelsi Protocol, achieving 101% MPHR, without any anginal symptoms, with isolated PVCs, with normotensive response to exercise. Without EKG changes meeting criteria for ischemia. Echo images obtained by tech at rest and immediately post peak exercise. Definity contrast used. Test reviewed with Dr. Rushing. Referred By: Savi Combs Overread By: SONY HESTER
== END ==
LOC: HO.CARD 10:33
PROVIDERS: PCP Internal Medicine; Visit Provider Nurse Practitioner
DX: R93.1 Abnormal findings on diagnostic imaging of heart and coronary circulation (principal)
CPT/HCPCS: 93350; 96127; 99212; Q9957

== ENCOUNTER → 2024-01-13 10:37 | Outpatient (BNV) | payer OTHER, SELFPAY | PROVIDERS: PCP Internal Medicine; Visit Provider Nurse Practitioner Family | DX: R94.31 Abnormal electrocardiogram [ECG] [EKG] (principal); I49.3 Ventricular premature depolarization | CPT/HCPCS: 93016; 93018; 93350; 93352 ==

== ENCOUNTER 2024-01-13 14:38 | Outpatient (AMB) | payer OTHER, SELFPAY ==
[2024-01-13 15:14] VITALS: BP 130/80; PULSE 101; O2SAT 94; BMI 38.7
--- NOTE | 2024-01-13 15:14 | MHC.PC.OV ---
Vital Signs 01/13/24 15:14 Height 5 ft 9 in Weight 262 lb 4 oz BMI 38.7 BP 130/80 Blood Pressure Location Rt brachial Pulse 101 H Pulse Source Pulse Oximeter Pulse Oximetry (%) 94 Oxygen Delivery Method Room Air Intake Visit Reasons: dm follow up Dye Maker Required: No Accompanied by: Self / Same As Patient Allergies codeine [CODEINE] Allergy (Severe, Verified 01/13/24 16:46) CONVULSIONS, anaphylaxis Penicillins [PENICILLINS] Allergy (Severe, Verified 01/13/24 16:46) ANAPHYLAXIS erythromycin base Allergy (Unknown, Verified 01/13/24 16:46) Unknown penicillin V Allergy (Unknown, Verified 01/13/24 16:46) anaphylaxis, throat swelling pollen extracts Allergy (Unknown, Verified 01/13/24 16:46) Unknown [place] Allergy (Unknown, Verified 01/13/24 16:46) tongue spits in two, tongue swelling Sulfa (Sulfonamide Antibiotics) Allergy (Unknown, Verified 01/13/24 16:46) hives Medication List - Last Reconciled 01/13/24 by Abdoulaye Lucas MD amlodipine 10 mg PO DAILY azelastine 1 spray intranasal BID blood sugar diagnostic (FreeStyle Lite Strips) 4x daily blood-glucose meter (FreeStyle Lite Meter kit) As directed dulaglutide 4.5 mg (0.5 mL) subcut QWEEK 3 months empagliflozin (Jardiance) 25 mg PO DAILY 90 days ergocalciferol (vitamin D2) 1,250 mcg PO QWEEK 3 months hydrochlorothiazide 25 mg PO DAILY irbesartan 300 mg PO DAILY lancets (FreeStyle Lancets) 4x daily lorazepam 0.5 mg PO DAILY PRN metformin ER 1,000 mg (2 x 500 mg) PO BID 90 days omeprazole 20 mg PO DAILY pioglitazone 45 mg PO DAILY 90 days tadalafil 5 mg PO DAILY 90 days tamsulosin 0.4 mg PO BEDTIME 90 days Tobacco use date assessed: 01/13/24 Dental Screening Dental Screen Date: 01/13/24 Did you have a dental visit in the last 12 months?: No Did you have a dental problem in the last 6 months where you did not have access to dental care?: No Was dental information given to patient?: Patient has dentist HPI dm follow up HPI Details Patient comes in today for his follow up visit States that he has been experiencing recurrent pain and discomfort over his left wrist since her fractured his wrist back on 09/10/2023 when he fell out of his truck after his foot got caught X-rays of the left wrist done at the emergency room at [facility] revealed a comminuted impacted displaced distal intra-articular radius fracture and displaced ulnar styloid fracture He was seen at the ER then by orthopedics and they were able to reduce his fracture He was then sent home with some medications for pain and was instructed to follow up with Orthopedics on an outpatient basis Patient states that he feels okay otherwise He denies any headaches or dizziness Denies any chest pains, no increased SOB No nausea/vomiting, no abdominal pain No change in bowel habits noted He is still seeing Dr. Walker for follow up and management of his diabetes His HgbA1c was at 9.3% about 5 days ago on 01/09/2024 when he had his follow up labs done - to discuss all of his results [facility] Medical History Abnormal echocardiogram Vitamin D deficiency Obesity (BMI 30-39.9) HLD (hyperlipidemia) HTN (hypertension) T2DM (type 2 diabetes mellitus) Low back pain Morbid obesity with BMI of 40.0-44.9, adult Urethritis Allergic rhinitis Primary osteoarthritis of both knees GERD without esophagitis Dyslipidemia Benign essential hypertension Diabetes mellitus with hyperglycemia, without long-term current use of insulin Surgical History History of drainage of abscess History of umbilical hernia repair Family History Father No problems noted. Mother Chronic mental illness CVD (cardiovascular disease) Maternal Grandmother Brain cancer Brother CVD (cardiovascular disease) Afib Sister Afib Other Mental health problem Social History Housing: House Alcohol intake: never Patient Tobacco Use Status: Never used Tobacco e-Cigarette/Vaping Use: Never Used Second Hand Smoke Exposure: Yes service: No Current occupational status: employed Cognitive needs: No Hearing needs: Yes Vision needs: No Questionnaire PHQ-9 Over the last 2 weeks, how often have you been bothered by any of the following problems? 1. Little interest or pleasure in doing things: not at all 2. Feeling down, depressed, or hopeless: not at all 3. Trouble falling or staying asleep, or sleeping too much: not at all 4. Feeling tired or having little energy: not at all 5. Poor appetite or overeating: not at all 6. Feeling bad about yourself - or that you are a failure or have let yourself or your family down: not at all 7. Trouble concentrating on things, such as reading the newspaper or watching television: not at all 8. Moving or speaking so slowly that other people could have noticed. Or the opposite - being so fidgety or restless that you have been moving around a lot more than usual: not at all 9. Thoughts that you would be better off or of hurting yourself in some way: not at all Total score: 0 Depression Screening Interpretation: Negative Depression Screening Done: Yes 31365 - PHQ-9 Billing: Yes Source: Developed by Drs. Milind Vu, Aminah Cross, Donnie Coles and colleagues, with an educational breana from [employer]. Thrive Questionnaire Date Thrive assessed: 01/13/24 I am a: Patient What is your living situation today?: I have a steady place to live Within the past 12 months, did the food you bought not last and you didn't have the money to get more?: Never true Within the past 12 months, did you worry whether your food would run out before you got money to buy more?: Never true Do you have trouble paying for medicines?: No Do you have trouble getting transportation to medical appointments?: No Do you have trouble paying your heating and electricity bill?: No Do you have trouble taking care of your child, family member or friend?: No Do you have trouble with day-to-day activities such as bathing, preparing meals, shopping, managing finances, etc.?: No Are you currently unemployed and looking for a job?: No Are you interested in more education?: No Please select the resources that you would like help with: None Currently or been in a relationship where the following occur: No concerns reported THRIVE Score: 0 AUDIT C Alcohol Use Questionnaire (AUDIT-C) 1. How often do you have a drink containing alcohol?: Never 3. How often do you have six or more drinks on one occasion?: Never Total Score: 0 Score Reviewed/Action Taken: Yes ROYER-7 AMB Questionnaire ROYER-7 Date ROYER - 7 assessed: 01/13/24 Feeling nervous, anxious, or on edge: 0 = Not at all Not being able to stop or control worryin = Not at all Worrying too much about different things: 0 = Not at all Trouble relaxin = Not at all Being so restless that it is hard to sit still: 0 = Not at all Becoming easily annoyed or irritable: 0 = Not at all Feeling afraid as if something awful might happen: 0 = Not at all Total ROYER-7 score (0-4 normal; 5-9 mild; 10-14 moderate; 15-21 severe): 0 Source: Developed by Drs. Milind Vu, Aminah Cross, Donnie Coles and colleagues, with an educational breana from [employer]. ROYER-7 Assessment Billing ROYER-7 Assessment Tool: ROYER-7 Assessment 92279 Review of Systems Const Denies chills, Denies fatigue, Denies fever(s) and Denies headache(s) ENT Denies dysphagia, Denies dizziness, Denies otalgia, Denies headache(s), Denies neck pain, Denies odynophagia and Denies sore throat Card Denies chest pain, Denies palpitations and Denies dyspnea Resp Denies chest congestion, Denies cough and Denies dyspnea GI Denies abdominal pain, Denies constipation, Denies dysphagia, Denies heartburn, Denies diarrhea, Denies nausea, Denies odynophagia and Denies vomiting Reports oliguria (weak urinary stream), Denies dysuria, Reports nocturia and Denies urinary frequency Musc Denies back pain, Reports arthralgias (left wrist - see HPI) and Denies neck pain Skin/Breast Denies rash Neuro Denies dizziness and Denies headache(s) Endo Denies fatigue and Denies palpitations Physical exam (Primary Care) Vital Signs: Last Vital Signs Pulse 101 H 01/13/24 15:14 BP 130/80 01/13/24 15:14 Pulse Ox 94 01/13/24 15:14 Oxygen Delivery Method Room Air 01/13/24 15:14 BMI result Body Mass Index 38.7 Tobacco/Smoking Status: Tobacco use Status Tobacco use date assessed 01/13/24 01/13/24 15:16 Patient Tobacco Use Status Never used Tobacco 01/13/24 15:16 e-Cigarette/Vaping Use Never Used 01/13/24 15:16 PHQ-9: PHQ-9 Score PHQ-9: Total score 0 01/13/24 16:57 Depression Screening Interpretation: Negative Thrive Assessment: Date of Thrive Assessment Date Thrive assessed 01/13/24 01/13/24 15:16 Currently or been in a relationship where the following occur: No concerns reported Const General: no acute distress and alert HENMT Ears: TM's normal bilaterally and EAC's normal Throat: Yes posterior oropharynx normal and Yes tonsils normal (no TP congestion) Neck Neck: Yes no lymphadenopathy and Yes supple Thyroid: Thyroid normal Resp Auscultation: clear to auscultation bilaterally, no rales and no wheezes Cardio Rate: regular rate Rhythm: regular rhythm Heart sounds: no murmurs GI Palpation (GI): Soft to palpation and nontender Auscultation: normal bowel sounds General: Yes no CVA tenderness Back/Spine/Pelvis Back: no CVA tenderness Thoracic/Lumbar Spine: No lumbar spinal tenderness Skin Rashes: no rashes Extrem General: Yes no clubbing, cyanosis or edema Left upper extremity: wrist ((+) tenderness on exam) Results Reviewed Results Reviewed: Laboratory Tests 01/09/24 01/09/24 07:36 07:41 WBC 10.6 Hgb 17.1 Hct 51.0 Plt Count 313 Sodium 142 Potassium 3.5 Creatinine 0.83 Estimated GFR > 60 Fasting Glucose 197 H Hemoglobin A1c % 9.3 H Calcium 10.7 H D AST 19 ALT 23 Triglycerides 376 H Cholesterol 201 H LDL Cholesterol, Calc 82 HDL Cholesterol 44 25-OH Vitamin D Total 20.4 L TSH 3.08 Ur Specific [place] >= 1.030 H Urine Protein Negative Urine Glucose (UA) >=1000 H Urine Blood Negative Urine Nitrite Negative Ur Leukocyte Esterase Negative Microalb/Creat Ratio 33.5 H Coding Level of Care Code Est Pt Level 4 (70331) Complex EM visit Add On G2211 Diagnoses Type 2 diabetes mellitus with hyperglycemia, without long-term current use of insulin E11.65 Diabetes mellitus type: type 2 Benign essential hypertension I10 Dyslipidemia E78.5 Intermittent palpitations R00.2 GERD without esophagitis K21.9 Allergic rhinitis due to other allergic trigger, unspecified seasonality J30.89 Allergic rhinitis trigger: other Allergic rhinitis seasonality: unspecified Vitamin D deficiency E55.9 Primary osteoarthritis of both knees M17.0 Closed fracture of left wrist, sequela S62.102S Encounter type: sequela Fracture type: closed Urethritis N34.2 Benign prostatic hyperplasia with weak urinary stream N40.1; R39.12 Obesity (BMI 30-39.9) E66.9 Additional Codes ROYER-7 Assessment Billing - ROYER-7 Assessment Tool: ROYER-7 Assessment 78211 ([id number]) Assessment & Plan Assessment & Plan (1) Diabetes mellitus with hyperglycemia, without long-term current use of insulin: Code(s): E11.65 - Type 2 diabetes mellitus with hyperglycemia Category: Medical Qualifiers: Diabetes mellitus type: type 2 Qualified Code(s): E11.65 - Type 2 diabetes mellitus with hyperglycemia Plan: His HgbA1c was unchanged from previous at 9.3% on his labs done a few days ago (his in-office HgbA1c was also at 9.3% back in September 2023) - goal is HgbA1c of at least < 7.0% Reinforced diabetic diet Continue?Pioglitazone?45 mg once a day,?Metformin ER 500 mg 2 tablets BID, Trulicity?4.5 mg subcutaneous injection once a week and?Jardiance?25 mg once a day Follow up with endocrinology (Dr. Walker) as scheduled (2) Benign essential hypertension: Code(s): I10 - Essential (primary) hypertension Category: Medical Plan: Reinforced low-sodium diet -? goal is systolic BP of at least 120 to 130 mm or less Continue?Irbesartan?300 mg once a day,?Amlodipine?10 mg once a day and?Hydrochlorothiazide?25 mg once a day in AM (3) Dyslipidemia: Code(s): E78.5 - Hyperlipidemia, unspecified Category: Medical Plan: Results of his labs done a few days ago reviewed and discussed with patient - he is cautioned that his serum triglyceride level has gone up significantly from previous to 376 mg/dl, likely in relation to his hyperglycemia Reinforced low cholesterol diet Continue Atorvastatin 10 mg QD Will recheck his labs and fasting lipids in 3 months for follow up (4) Intermittent palpitations: Code(s): R00.2 - Palpitations Category: Medical Plan: Echocardiogram and Holter monitor done a few months ago were both normal and unrevealing Patient states that his symptoms (palpitations) have subsided a lot lately He was seen by cardiology for evaluation and was advised continued observation but was cautioned that the possibility of AF remains high and he should call if his symptoms get worse at any time Follow up with cardiology as scheduled (5) GERD without esophagitis: Code(s): K21.9 - Gastro-esophageal reflux disease without esophagitis Category: Medical Plan: Dietary restrictions reinforced Continue Omeprazole 20 mg QD (6) Allergic rhinitis: Code(s): J30.9 - Allergic rhinitis, unspecified Category: Medical Qualifiers: Allergic rhinitis trigger: other Allergic rhinitis seasonality: unspecified Qualified Code(s): J30.89 - Other allergic rhinitis Plan: Continue Cetirizine 10 mg QD PRN (7) Vitamin D deficiency: Code(s): E55.9 - Vitamin D deficiency, unspecified Category: Medical Plan: Continue Vitamin D2 1250 mcg once a week (8) Primary osteoarthritis of both knees: Code(s): M17.0 - Bilateral primary osteoarthritis of knee Category: Medical Plan: X-rays of both knees done back in September 2017 showed mild OA changes in both knees States (+) symptomatic relief with OTC Advil PRN To consider referral to Orthopedics if his knee symptoms progress or get worse (9) Left wrist fracture: Code(s): S62.102A - Fracture of unspecified carpal bone, left wrist, initial encounter for closed fracture Category: Medical Qualifiers: Encounter type: sequela Fracture type: closed Qualified Code(s): S62.102S - Fracture of unspecified carpal bone, left wrist, sequela Plan: X-rays of the left wrist done at the emergency room at [facility] on 09/10/2023 revealed (+) comminuted impacted displaced distal intra-articular radius fracture and displaced ulnar styloid fracture He underwent reduction of his comminuted wrist fracture by orthopedics in the ER back on 09/10/2023 Follow up with orthopedics as scheduled (10) Urethritis: Code(s): N34.2 - Other urethritis Category: Medical Plan: Continue Fluconazole 150 mg QD Follow-up with urology as scheduled for continuing management of his chronic/recurrent symptoms (11) Benign prostatic hyperplasia with weak urinary stream: Code(s): N40.1 - Benign prostatic hyperplasia with lower urinary tract symptoms; R39.12 - Poor urinary stream Category: Medical Plan: Continue Tadalafil 5 mg QD Follow up with urology as scheduled (12) Obesity (BMI 30-39.9): Code(s): E66.9 - Obesity, unspecified Category: Medical Plan: Reinforced diet/exercise as tolerated/lose weight Plan Follow up in 3 months Orders: Orders Hemoglobin A1c 3 Months E11.9 - Type 2 diabetes mellitus without complications Lipid Panel 3 Months E78.00 - Pure hypercholesterolemia, unspecified TSH reflex Free T4 3 Months E78.00 - Pure hypercholesterolemia, unspecified UA CC w/rflx Micro + Cult 3 Months R30.0 - Dysuria Vitamin D 25-OH Total 3 Months E55.9 - Vitamin D deficiency, unspecified Complete Blood Count Auto Diff 3 Months D64.9 - Anemia, unspecified Comprehensive [place]. Panel Fast 3 Months E78.00 - Pure hypercholesterolemia, unspecified Microalbumin, Random (w Creat) 3 Months E11.9 - Type 2 diabetes mellitus without complications
== END 2024-01-13 16:59 | disposition home or self-care (01) ==
LOC: HO.HMCH 14:39
PROVIDERS: PCP Internal Medicine; Visit Provider Internal Medicine
DX: E11.65 Type 2 diabetes mellitus with hyperglycemia (principal); I10 Essential (primary) hypertension; E78.5 Hyperlipidemia, unspecified; R00.2 Palpitations; K21.9 Gastro-esophageal reflux disease without esophagitis; J30.89 Other allergic rhinitis; E55.9 Vitamin D deficiency, unspecified; M17.0 Bilateral primary osteoarthritis of knee; S62.102S Fracture of unspecified carpal bone, left wrist, sequela; N34.2 Other urethritis; N40.1 Benign prostatic hyperplasia with lower urinary tract symptoms; R39.12 Poor urinary stream

== ENCOUNTER 2024-04-06 14:32 | Outpatient (AMB) | payer OTHER, SELFPAY ==
[2024-04-06 14:37] VITALS: BP 140/78; PULSE 88; BMI 38.1
--- NOTE | 2024-04-06 14:37 | A.OFFVIS_ITS ---
Vital Signs 04/06/24 14:37 Height 5 ft 9 in Weight 257 lb 15.053 oz BMI 38.1 BP 140/78 H Blood Pressure Location Lt brachial Position Sitting Pulse 88 Pulse Source Pulse Oximeter Intake Visit Reasons: follow up s/p stress test Allergies codeine [CODEINE] Allergy (Severe, Verified 01/13/24 16:46) CONVULSIONS, anaphylaxis Penicillins [PENICILLINS] Allergy (Severe, Verified 01/13/24 16:46) ANAPHYLAXIS erythromycin base Allergy (Unknown, Verified 01/13/24 16:46) Unknown penicillin V Allergy (Unknown, Verified 01/13/24 16:46) anaphylaxis, throat swelling pollen extracts Allergy (Unknown, Verified 01/13/24 16:46) Unknown [place] Allergy (Unknown, Verified 01/13/24 16:46) tongue spits in two, tongue swelling Sulfa (Sulfonamide Antibiotics) Allergy (Unknown, Verified 01/13/24 16:46) hives Medication List - Last Reconciled 04/06/24 by John Paul Rushing MD amlodipine 10 mg PO DAILY blood sugar diagnostic (FreeStyle Lite Strips) 4x daily blood-glucose meter (FreeStyle Lite Meter kit) As directed dulaglutide 4.5 mg (0.5 mL) subcut QWEEK 3 months empagliflozin (Jardiance) 25 mg PO DAILY 90 days ergocalciferol (vitamin D2) 1,250 mcg PO QWEEK 3 months hydrochlorothiazide 25 mg PO DAILY irbesartan 300 mg PO DAILY lancets (FreeStyle Lancets) 4x daily metformin ER 1,000 mg (2 x 500 mg) PO BID 90 days omeprazole 20 mg PO DAILY pioglitazone 45 mg PO DAILY 90 days HPI Comments Details: John comes for follow-up. He underwent stress echocardiogram showed no evidence of ischemia at the achieved workload although multiple moderate workload. He has not had any recurrent symptoms of chest pain. 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 His most recent cholesterol profile showed significantly elevated triglycerides as well as borderline elevated LDL. Currently not on any lipid modification therapy. He is currently on weight loss regimen has been losing weight gradually. [facility] Medical History Abnormal echocardiogram Vitamin D deficiency Obesity (BMI 30-39.9) HLD (hyperlipidemia) HTN (hypertension) T2DM (type 2 diabetes mellitus) Low back pain Morbid obesity with BMI of 40.0-44.9, adult Urethritis Allergic rhinitis Primary osteoarthritis of both knees GERD without esophagitis Dyslipidemia Benign essential hypertension Diabetes mellitus with hyperglycemia, without long-term current use of insulin Surgical History History of drainage of abscess History of umbilical hernia repair Family History Father No problems noted. Mother Chronic mental illness CVD (cardiovascular disease) Maternal Grandmother Brain cancer Brother CVD (cardiovascular disease) Afib Sister Afib Other Mental health problem Social History Housing: House Alcohol intake: never Patient Tobacco Use Status: Never used Tobacco e-Cigarette/Vaping Use: Never Used Second Hand Smoke Exposure: Yes service: No Current occupational status: employed Cognitive needs: No Hearing needs: Yes Vision needs: No Review of Systems Const Denies weakness ENT Denies dizziness Card Denies chest pain, Denies chest pain with activity, Denies syncope, Denies rapid heart rate, Denies pedal edema, Denies edema, Denies leg edema, Denies lightheadedness, Denies palpitations, Denies dyspnea, Denies dyspnea on exertion and Denies orthopnea Resp Denies cough, Denies dyspnea and Denies dyspnea on exertion GI Denies hematochezia and Denies change in stool character Musc Denies abnormal gait, Denies muscle cramps, Denies muscle weakness, Denies numbness, Denies radiating pain into limb and Denies tingling Neuro Denies abnormal gait, Denies dizziness, Denies syncope, Denies numbness, Denies tingling and Denies weakness Endo Denies palpitations Physical Exam Vital Signs: Last Vital Signs Pulse 88 04/06/24 14:37 BP 140/78 H 04/06/24 14:37 BMI result Body Mass Index 38.1 Const General: healthy appearing and no acute distress Orientation/consciousness: patient oriented x3 HEENT Head: Yes normal to inspection Eyes General: appearance normal, both eyes and all related structures Neck Neck: Yes normal visual inspection Chest Chest palpation & inspection: normal inspection of the chest Resp Effort & Inspection: normal respiratory effort Auscultation: clear to auscultation bilaterally Cardio Jugular venous distension: no JVD Palpation: normal PMI Rate: regular rate Rhythm: regular rhythm Heart sounds: S1 normal heart sound present, S2 normal heart sound present, no click, no gallops, no murmurs and no rubs GI Inspection: Yes normal to inspection Palpation (GI): Soft to palpation Skin General skin exam: no rashes or lesions noted Neuro General: patient oriented x3 Extrem Other: left arm broken. General: Yes normal to inspection Psych Appearance: grossly normal Assessment & Plan Assessment & Plan (1) Palpitations: Code(s): R00.2 - Palpitations Category: Medical Plan: Patient was symptoms of palpitation related to isolated PACs/PVCs. Benign nature of these arrhythmias were detected. I would avoid any significant therapy as his structural heart workup is within normal limits. Advised to avoid stimulants. Continue maintain activity level as tolerated. If symptoms become bothersome can use beta-blockers to improve his symptoms although currently not indicated. (2) Benign essential hypertension: Code(s): I10 - Essential (primary) hypertension Category: Medical Plan: Multiple risk factors for coronary disease including obesity, hypertension, diabetes as well as hyperlipidemia. Blood pressure is well optimized. Advised to continue current therapy. Importance of monitoring blood pressure at home maintain a log was discussed. Target goal blood pressure less than 130/84. Low-salt diet was discussed. Continue aggressive diabetes management. Encouraged to increase activity level and gradual weight loss program. Consider statin therapy given his risk factors. Have taken the liberty to prescribe him as he was interested in it. Target goal LDL closer to 60 mg/dL. Will follow up in the clinic in 1 year's time, sooner p.r.n.. Thank you for allowing me to partake in his care Orders: Orders Lipid Panel 3 Months E78.5 - Hyperlipidemia, unspecified, I25.10 - Atherosclerotic heart disease of [place] coronary artery without angina pectoris Medications: New atorvastatin 20 mg PO DAILY 30 tabs 5RF E78.5 - Hyperlipidemia, unspecified Coding Level of Care Code Est Pt Level 3 (50898) Complex EM visit Add On G2211 Diagnoses Palpitations R00.2 Benign essential hypertension I10
--- OUTSIDE RECORDS SUMMARY | 2024-04-06 19:00 | XMS_ITS | Continuity of Care Document ---
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 Medication Details Route Status Patient Instructions Prescription Expires Prescription Number Last Dispense Date Ordering Provider Order Date Order Qty Source AMLODIPINE BESYLATE (AMLODIPINE BESYLATE), 10 MG, TABLET, ORAL, [employer], 1000 ea. BOTTLE Active [id number] 4 2023 90 Pharmac y Data Transac tion Service Facilit y AMLODIPINE BESYLATE (AMLODIPINE BESYLATE), 10 MG, TABLET, ORAL, [employer], 1000 ea. BOTTLE Active [id number] 4 2023 90 Pharmac y Data Transac tion Service Facilit y ATORVASTATI N CALCIUM (ATORVASTAT IN CALCIUM), 10 MG, TABLET, ORAL, APOTEX ANAHI, 1000 ea. BOTTLE Active [id number] 4 2023 90 Pharmac y Data Transac tion Service Facilit y ATORVASTATI N CALCIUM (ATORVASTAT IN CALCIUM), 10 MG, TABLET, ORAL, APOTEX ANAHI, 1000 ea. BOTTLE Active [id number] 4 2023 90 Pharmac y Data Transac tion Service Facilit y FREESTYLE LANCETS (lancets), 28 GAUGE, EACH, MISCELL WHITING DIABETES, 100 ea. PACKET Cancele d [id number] : 2023 0 Pharmac y Data Transac tion Service Facilit y FREESTYLE LITE TEST STRIP (blood sugar diagnostic) , STRIP, MISCELL, WHITING DIABETES, 100 ea. BOX Cancele d [id number] : 2023 0 Pharmac y Data Transac tion Service Facilit y GAVILYTE-G (PEG 3350/NA SULF,BICARB ,CL/KCL), 236-22.74G, SOLN RECON, ORAL, GAVIS PHARMACEU, 4000 ml BOTTLE Cancele d [id number] : 2023 0 Pharmac y Data Transac tion Service Facilit y GAVILYTE-G (PEG 3350/NA SULF,BICARB ,CL/KCL), 236-22.74G, SOLN RECON, ORAL, GAVIS PHARMACEU, 4000 ml BOTTLE Cancele d [id number] : 2023 0 Pharmac y Data Transac tion Service Facilit y GAVILYTE-G (PEG 3350/NA SULF,BICARB ,CL/KCL), 236-22.74G, SOLN RECON, ORAL, GAVIS PHARMACEU, 4000 ml BOTTLE Active [id number] 4 2023 4000 Pharmac y Data Transac tion Service Facilit y HYDROCHLORO THIAZIDE (hydrochlor othiazide), 25 MG, TABLET, ORAL, [employer] 1000 ea. BOTTLE Active [id number] 4 2023 90 Pharmac y Data Transac tion Service Facilit y HYDROCHLORO THIAZIDE (hydrochlor othiazide), 25 MG, TABLET, ORAL, [employer] 1000 ea. BOTTLE Active [id number] 4 2023 90 Pharmac y Data Transac tion Service Facilit y IRBESARTAN (irbesartan ), 300 MG, TABLET, ORAL, HISUN PHARMACEU, 90 ea. BOTTLE Active [id number] 4 2023 90 Pharmac y Data Transac tion Service Facilit y IRBESARTAN (irbesartan ), 300 MG, TABLET, ORAL, [employer]ARMACEU, 90 ea. BOTTLE Active [id number] 4 2023 90 Pharmac y Data Transac tion Service Facilit y IRBESARTAN (IRBESARTAN ), 300 MG, TABLET, ORAL, [employer], 90 ea. BOTTLE Active [id number] 2023 90 Pharmac y Data Transac tion Service Facilit y JARDIANCE (EMPAGLIFLO ZIN), 25 MG, TABLET, ORAL, [employer] ING., 90 ea. BOTTLE Active [id number] 4 2023 90 Pharmac y Data Transac tion Service Facilit y JARDIANCE (EMPAGLIFLO ZIN), 25 MG, TABLET, ORAL, [employer] ING., 90 ea. BOTTLE Canelizabeth d [id number] : 2023 0 Pharmac y Data Transac tion Service Facilit y JARDIANCE (EMPAGLIFLO ZIN), 25 MG, TABLET, ORAL, [employer] ING., 90 ea. BOTTLE Active [id number] 4 2023 90 Pharmac y Data Transac tion Service Facilit y METFORMIN HCL ER (metformin HCl), 500 MG, TAB ER 24H, ORAL, [employer], 1000 ea. BOTTLE Active [id number] 4 2023 360 Pharmac y Data Transac tion Service Facilit y METFORMIN HCL ER (metformin HCl), 500 MG, TAB ER 24H, ORAL, [employer], 90 ea. BOTTLE Active [id number] 4 2023 360 Pharmac y Data Transac tion Service Facilit y OMEPRAZOLE (omeprazole ), 20 MG, CAPSULE DR, ORAL, [employer] 1000 ea. BOTTLE Active [id number] 4 2023 90 Pharmac y Data Transac tion Service Facilit y OMEPRAZOLE (omeprazole ), 20 MG, CAPSULE DR, ORAL, [employer], 1000 ea. BOTTLE Active [id number] 2023 90 Pharmac y Data Transac tion Service Facilit y PIOGLITAZON E HCL (PIOGLITAZO NE HCL), 45 MG, TABLET, ORAL, [employer] PHARM, 30 ea. BOTTLE Active [id number] 4 2023 90 Pharmac y Data Transac tion Service Facilit y PIOGLITAZON E HCL (PIOGLITAZO NE HCL), 45 MG, TABLET, ORAL, [employer] PHARM, 30 ea. BOTTLE Active [id number] 2023 90 Pharmac y Data Transac tion Service Facilit y TAMSULOSIN HCL (TAMSULOSIN HCL), 0.4 MG, CAP.SR 24H, ORAL, ZYDUS PHARMACEU, 1000 ea. BOTTLE Active [id number] 4 2023 90 Pharmac y Data Transac tion Service Facilit y TRULICITY (dulaglutid e), 4.5 MG/0.5, PEN INJCTR, SUBCUT, [employer] .5 ml SYRINGE Cancele d [id number] : 2023 0 Pharmac y Data Transac tion Service Facilit y VITAMIN D2 (ergocalcif naun (vitamin D2)), 1250 MCG, CAPSULE, ORAL, [employer], 100 ea. BOTTLE Active [id number] 4 2023 13 Pharmac y Data Transac tion Service Facilit y Immunizations Combined list of available immunizations from the Department of Defense and Veterans Affairs facilities. Immunization Series Date Given Administered By Site Reaction Lot Number CVX Code Drug Rn Intake Status Comments Source COVID-19, mRNA, LNP-S, PF, 100 mcg or 50 mcg dose 2021 NATALY, () Not Given COVID-19, mRNA, LNP-S, PF, 100 mcg or 50 mcg dose DoD Social History Combined list of available smoking, tobacco, and other social history from Department of Defense and Veterans Affairs facilities. Social History Type Response Date Comment [facility] e This section is an empty social history section. DoD
== END 2024-04-06 15:08 | disposition home or self-care (01) ==
PROVIDERS: PCP Internal Medicine; Visit Provider Internal Medicine Cardiovascular Disease
DX: R00.2 Palpitations (principal); I10 Essential (primary) hypertension
CPT/HCPCS: 99213; G2211

== ENCOUNTER → 2024-04-06 14:32 | Outpatient (BNVA) | payer OTHER, SELFPAY | PROVIDERS: PCP Internal Medicine; Visit Provider Internal Medicine Cardiovascular Disease | DX: I25.10 Atherosclerotic heart disease of native coronary artery without angina pectoris (principal); I10 Essential (primary) hypertension; R00.2 Palpitations; E78.5 Hyperlipidemia, unspecified | CPT/HCPCS: 99212 ==

== ENCOUNTER 2024-04-25 08:09 | Outpatient (REF) | payer OTHER, SELFPAY ==
--- OUTSIDE RECORDS SUMMARY | 2024-04-25 08:11 | XMS_ITS | Continuity of Care Document ---
Author Name 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 Medication Details Route Status Patient Instructions Prescription Expires Prescription Number Last Dispense Date Ordering Provider Order Date Order Qty Source AMLODIPINE BESYLATE (AMLODIPINE BESYLATE), 10 MG, TABLET, ORAL, [employer], 1000 ea. BOTTLE Active [id number] 4 2023 90 Pharmac y Data Transac tion Service Facilit y AMLODIPINE BESYLATE (AMLODIPINE BESYLATE), 10 MG, TABLET, ORAL, [employer], 1000 ea. BOTTLE Active [id number] 4 2023 90 Pharmac y Data Transac tion Service Facilit y FREESTYLE LANCETS (lancets), 28 GAUGE, EACH, MISCELL, WHITING DIABETES, 100 ea. PACKET Cancele d [id number] : 2023 0 Pharmac y Data Transac tion Service Facilit y FREESTYLE LITE TEST STRIP (blood sugar diagnostic) , STRIP, MISCELL, WHITING DIABETES, 100 ea. BOX Cancele d [id number] : 2023 0 Pharmac y Data Transac tion Service Facilit y GAVILYTE-G (PEG 3350/NA SULF,BICARB ,CL/KCL), 236-22.74G, SOLN RECON, ORAL, GAVIS PHARMACEU, 4000 ml BOTTLE Cancele d [id number] : 2023 0 Pharmac y Data Transac tion Service Facilit y GAVILYTE-G (PEG 3350/NA SULF,BICARB ,CL/KCL), 236-22.74G, SOLN RECON, ORAL, GAVIS PHARMACEU, 4000 ml BOTTLE Cancele d [id number] : 2023 0 Pharmac y Data Transac tion Service Facilit y GAVILYTE-G (PEG 3350/NA SULF,BICARB ,CL/KCL), 236-22.74G, SOLN RECON, ORAL, GAVIS PHARMACEU, 4000 ml BOTTLE Active [id number] 4 2023 4000 Pharmac y Data Transac tion Service Facilit y JARDIANCE (EMPAGLIFLO ZIN), 25 MG, TABLET, ORAL, [employer] ING., 90 ea. BOTTLE Active [id number] 4 2023 90 Pharmac y Data Transac tion Service Facilit y JARDIANCE (EMPAGLIFLO ZIN), 25 MG, TABLET, ORAL, [employer]., 90 ea. BOTTLE Cancele d [id number] : 2023 0 Pharmac y Data Transac tion Service Facilit y JARDIANCE (EMPAGLIFLO ZIN), 25 MG, TABLET, ORAL, [employer]., 90 ea. BOTTLE Active [id number] 2023 90 Pharmac y Data Transac tion Service Facilit y METFORMIN HCL ER (metformin HCl), 500 MG, TAB ER 24H, ORAL, [employer], 1000 ea. BOTTLE Active [id number] 4 2023 360 Pharmac y Data Transac tion Service Facilit y OMEPRAZOLE (omeprazole ), 20 MG, CAPSULE , ORAL, [employer] 1000 ea. BOTTLE Active [id number] 2023 90 Pharmac y Data Transac tion Service Facilit y OMEPRAZOLE (omeprazole ), 20 MG, CAPSULE DR ORAL, [employer], 1000 ea. BOTTLE Active [id number] 4 2023 90 Pharmac y Data Transac tion Service Facilit y PIOGLITAZON E HCL (PIOGLITAZO NE HCL), 45 MG, TABLET, ORAL, [employer] PHARM, 30 ea. BOTTLE Active [id number] 4 2023 90 Pharmac y Data Transac tion Service Facilit y PIOGLITAZON E HCL (PIOGLITAZO NE HCL), 45 MG, TABLET, ORAL, [employer] PHARM, 30 ea. BOTTLE Active [id number] 4 2023 90 Pharmac y Data Transac tion Service Facilit y TRULICITY (dulaglutid e), 4.5 MG/0.5, PEN INJCTR, SUBCUT, [employer] .5 ml SYRINGE Cancele d [id number] : 2023 0 Pharmac y Data Transac tion Service Facilit y Immunizations Combined list of available immunizations from the Department of Defense and Veterans Affairs facilities. 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 Social History Type Response Date Comment [facility] e This section is an empty social history section. DoD
--- OUTSIDE RECORDS SUMMARY | 2024-04-25 08:11 | XMS_ITS | Continuity of Care Document ---
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 Name Role Phone Abdoulaye Lucas MD Primary Care Physician [phone] Encounter [facility] Date(s): 03/19/24 - 04/18/24 [facility] [address] [address] Encounter Type: Triage Allergies, Adverse Reactions, Alerts Substance Criticality Severity Reaction Reaction Severity Status codeine convulsions Active erythromycin High criticality Severe Active penicillins throat closes Acti ve sulfa drugs Unable to assess criticality Persistent Moderate Active Other Food Allergy 1 Active [place] Oil Unable to assess criticality Persistent Moderate Active 1salmon Medications Actos 15 mg oral tablet 1 tablet = 15 mg, By Mouth, Daily, # 30 tablet, 0 Refills, Maintenance, 01/27/20 12:01:00 PM EST, Tablet, Partial fill upon patient request Start Date: 01/27/20 Status: Ordered Quantity: 30.0 Unit: tablet Repeat number: 1 Amlodipine 10 mg, By Mouth, Daily, Maintenance, 01/06/13 9:09:10 AM EDT Start Date: 01/06/13 Status: Ordered Repeat number: 1 HYDROCHLOROTHIAZIDE HYDROCHLOROTHIAZIDE, 25 mg, By Mouth, Daily, Refills 0, Maintenance, 01/06/13 9:10:31 AM EDT, Compound Start Date: 01/06/13 Status: Ordered Repeat number: 1 irbesartan 300 mg oral tablet 1 tablet = 300 mg, By Mouth, Daily, 0 Refills, Maintenance, 01/06/13 9:12:29 AM EDT Start Date: 01/06/13 Status: Ordered Repeat number: 1 Jardiance See Instructions, By Mouth Daily in AM, 0 Refills, Maintenance, 09/19/23 6:34:00 AM EDT, Partial fill upon patient request if the prescription is for a schedule II opioid drug. Start Date: 09/19/23 Status: Ordered Repeat number: 1 metFORMIN 500 mg oral tablet 1 tablet = 500 mg, By Mouth, 2 times a day, # 180 tablet, 0 Refills, Maintenance, 09/19/23 6:36:00 AM EDT, Tablet, Partial fill upon patient request if the prescription is for a schedule II opioid drug. Start Date: 09/19/23 Status: Ordered Quantity: 180.0 Unit: tablet Repeat number: 1 NuLYTELY with Flavor Packs oral powder for reconstitution 240 mL, By Mouth, Every 10 minutes, # 4,000 mL, 0 Refills, Maintenance, 01/06/13 9:49:33 AM EDT, [facility]/pharmacy #[id number], 240 mL By Mouth Every 10 minutes Start Date: 01/06/13 Status: Ordered Quantity: 4000.0 Unit: mL Repeat number: 1 omeprazole 20 mg oral enteric coated capsule 1 capsule = 20 mg, By Mouth, Daily, 0 Refills, Maintenance, 01/06/13 9:08:41 AM EDT Start Date: 01/06/13 Status: Ordered Repeat number: 1 oxyCODONE 5 mg oral tablet 5 mg, 1, tablet, By Mouth, Every 6 hours, PRN, # 10 tablet, Refills 0, Tot. Refills 0, Maintenance,for pain, 09/26/23 10:28:00 AM EDT, Route to Pharmacy Electronically, [facility] #[id number], Partial fill upon patient request if the prescription is for a schedule II opioid drug., 175, cm, 09/26/23 9:52:00 EDT, Height, 115.5, kg, 09/23/23 10:36:00 EDT, Dry Weight Start Date: 09/26/23 Status: Ordered Quantity: 10.0 Unit: tablet Repeat number: 1 PEG-3350 with Electrolytes (Eqv-GoLYTELY) oral powder for reconstitution 240 mL, By Mouth, Every 10 minutes, Please fill LUTHER. to be taken as directed by GI office., # 4,000 mL, 0 Refills, Maintenance, 08/12/23 3:01:00 PM EDT, [facility] #[id number], [place] to sub for any available gallon prep, 240 mL By Mouth Every 10 minutes,Instr:Please fill LUTHER. to be taken as directed by GI office. Start Date: 08/12/23 Status: Ordered Quantity: 4000.0 Unit: mL Repeat number: 1 Trulicity Pen Subcutaneous Infusion, 0 Refills, Maintenance, 01/27/20 12:02:00 PM EST, Partial fill upon patient request Start Date: 01/27/20 Status: Ordered Repeat number: 1 Problem List Condition Confirmation Course Effective Dates Status Health St atus Informant Burning reflux Confirmed Active DM (diabetes mellitus) Confirmed Active Heartburn symptom Confirmed Active Obese class II Confirmed Active Rectal itching Confirmed Active Well male adult Confirmed Active Social History Social History Type Response Smoking Status Never (less than 100 in lifetime) entered on: 09/18/23 Sex Sex Representation Male (finding) Patient Care team information Care Team Personnel Name: Abdoulaye Lucas MD Position: Reference Physician Member Role: PCP Address: [address] [place] [address] Telecom: Care Team Related Persons Name: DALE RIVERA Insurance Providers Guarantor name: CAREY Health Plan Information #: 1 Payer: WORK COMP NON BH EM Member Number: NA Policy Number: NA Group Number: NA Health Plan Information #: 2 Payer: [id number] FED SVC Member Number: NA Policy Number: NA Group Number: NA
[2024-04-25 08:33] LABS: MANUAL DIFF FLAG NO
[2024-04-25 09:18] LABS: Basophils Absolute Auto 0.1 X10*3/uL (0.0-0.2); Basophils Percent Auto 0.7 % (0-2); Eosinophils Absolute Auto 0.1 X10*3/uL (0.0-0.4); Eosinophils Percent Auto 0.9 % (0-4); Hematocrit 49.1 % (42.0-52.0); Hemoglobin 16.7 g/dl (14.0-18.0); Imm Gran Abs Auto 0.03 X10*3/uL (0.00-0.03); Imm Gran Pct Auto 0.3 % (0.0-0.4); Lymphocytes Percent Auto 20.4 % (20-40); Mean Corpuscular Hemoglobin 30.1 pg (27.0-33.0); Mean Corpuscular Volume 88.6 fL (80.0-98.0); Mean Platelet Volume 9.4 fL (9.4-12.4); Monocytes Absolute Auto 0.8 X10*3/uL (0.1-1.2); Monocytes Percent Auto 8.2 % (2-11); Neutrophils Absolute Auto 6.6 x10*3/uL (2.0-8.3); Neutrophils Percent Auto 69.5 % (45-73); Platelet Count 322 X10*3/uL (160-400); Red Blood Count 5.54 X10*6/uL (4.60-5.80); White Blood Count 9.6 X10*3/uL (4.8-10.8)
[2024-04-25 09:27] LABS: Appearance Urine Clear; Color Urine Yellow; Glucose Urine UA >=1000 mg/dL (Negative); PH 5.5 (5.0-9.0); Specific Gravity - Urine > 1.030 (1.005-1.025); Urine Blood Negative (Negative)
[2024-04-25 09:28] LABS: Leukocyte Esterase Urine Negative (Negative); Nitrite Urine Negative (Negative); UMIC TRIGGER UACC YES; Urine Ketones 15 mg/dL (Negative); Urine Protein Negative (Neg-Trace)
[2024-04-25 09:28] LABS: Estimated Average Glucose 249 mg/dL; Hemoglobin A1C 382.3566 umol/L; Hemoglobin A1c % 10.3 % (<6.0)
[2024-04-25 09:35] LABS: Bacteria Urine None Seen (None Seen); Hyaline Casts Urine 0-2 /LPF (0-2); RBC Urine 0-2 /HPF (0-2); Squamous Epithelial Cell Urine 0-2 /HPF (0-2); WBC Urine 0-5 /HPF (0-5)
[2024-04-25 09:50] LABS: Alanine Aminotransferase 23 U/L (0-40); Albumin Level 4.6 g/dL (3.5-5.0); Alkaline Phosphatase 100 U/L (39-117); Anion Gap 17 (12-20); Aspartate Amino Transferase 23 U/L (5-37); Bilirubin Total 1.1 mg/dL (0.0-1.0); Blood Urea Nitrogen 16 mg/dL (9-16); Calcium 9.4 mg/dL (8.4-10.2); Carbon Dioxide 25 mmol/L (22-29); Chloride 101 mmol/L (96-108); Estimated Glomerular Filt Rate > 60; Glucose Fasting 195 mg/dL (60-99); Potassium 3.7 mmol/L (3.3-5.1); Sodium 139 mmol/L (135-145); Total Protein 8.1 g/dL (6.5-8.0)
[2024-04-25 10:12] LABS: Vitamin D 25-OH Total 25.5 ng/mL (>30)
[2024-04-25 10:30] LABS: Creatinine Urine 42.87 mg/dL; Microalbum/Creatinine Ratio Ur 20.9 ug/mg cr (<30)
[2024-04-27 19:23] LABS: Trichomonas vaginalis RNA NOT DETECTED (NOT DETECTED)
== END 2024-04-25 08:10 | disposition home or self-care (01) ==
LOC: HO.LAB 08:09
PROVIDERS: PCP Internal Medicine; Visit Provider Internal Medicine
DX: D64.9 Anemia, unspecified (principal); E78.00 Pure hypercholesterolemia, unspecified; E11.9 Type 2 diabetes mellitus without complications; E55.9 Vitamin D deficiency, unspecified; R36.9 Urethral discharge, unspecified
CPT/HCPCS: 80053; 81001; 82043; 82306; 82570; 83036; 84443; 85025; 87661

== ENCOUNTER 2024-04-28 14:30 | Outpatient (AMB) | payer OTHER, SELFPAY ==
[2024-04-28 14:43] VITALS: BP 128/74; PULSE 106; BMI 38.4
--- NOTE | 2024-04-28 14:43 | A.OFFPC_ITS ---
Vital Signs 04/28/24 14:43 Height 5 ft 9 in Weight 260 lb 6 oz BMI 38.4 BP 128/74 Blood Pressure Location Lt brachial Position Sitting Pulse 106 H Pulse Source Pulse Oximeter Oxygen Delivery Method Room Air Intake Visit Reasons: 3 month f/u Ship Fastener Required: No Accompanied by: Self / Same As Patient Allergies codeine [CODEINE] Allergy (Severe, Verified 04/28/24 15:39) CONVULSIONS, anaphylaxis Penicillins [PENICILLINS] Allergy (Severe, Verified 04/28/24 15:39) ANAPHYLAXIS erythromycin base Allergy (Unknown, Verified 04/28/24 15:39) Unknown penicillin V Allergy (Unknown, Verified 04/28/24 15:39) anaphylaxis, throat swelling pollen extracts Allergy (Unknown, Verified 04/28/24 15:39) Unknown [place] Allergy (Unknown, Verified 04/28/24 15:39) tongue spits in two, tongue swelling Sulfa (Sulfonamide Antibiotics) Allergy (Unknown, Verified 04/28/24 15:39) hives Medication List - Last Reconciled 04/28/24 by Abdoulaye Lucas MD amlodipine 10 mg PO DAILY atorvastatin 20 mg PO DAILY blood sugar diagnostic (FreeStyle Lite Strips) 4x daily blood-glucose meter (FreeStyle Lite Meter kit) As directed dulaglutide 4.5 mg (0.5 mL) subcut QWEEK 3 months empagliflozin (Jardiance) 25 mg PO DAILY 90 days ergocalciferol (vitamin D2) 1,250 mcg PO QWEEK 3 months hydrochlorothiazide 25 mg PO DAILY irbesartan 300 mg PO DAILY lancets (FreeStyle Lancets) 4x daily metformin ER 1,000 mg (2 x 500 mg) PO BID 90 days omeprazole 20 mg PO DAILY pioglitazone 45 mg PO DAILY 90 days Tobacco use date assessed: 04/28/24 Dental Screening Dental Screen Date: 04/28/24 Did you have a dental visit in the last 12 months?: Yes Did you have a dental problem in the last 6 months where you did not have access to dental care?: No Was dental information given to patient?: Patient has dentist HPI 3 month f/u HPI Details Patient comes in today for his follow-up visit States that he feels okay He denies any headaches or dizziness Denies any chest pains, no shortness of breath No nausea/vomiting, no abdominal pain No change in bowel habits noted He had his follow-up labs done a few days ago - to discuss his results FOR[facility]LY [facility] Medical History Abnormal echocardiogram Vitamin D deficiency Obesity (BMI 30-39.9) HLD (hyperlipidemia) HTN (hypertension) T2DM (type 2 diabetes mellitus) Low back pain Morbid obesity with BMI of 40.0-44.9, adult Urethritis Allergic rhinitis Primary osteoarthritis of both knees GERD without esophagitis Dyslipidemia Benign essential hypertension Diabetes mellitus with hyperglycemia, without long-term current use of insulin Surgical History History of drainage of abscess History of umbilical hernia repair Family History Father No problems noted. Mother Chronic mental illness CVD (cardiovascular disease) Maternal Grandmother Brain cancer Brother CVD (cardiovascular disease) Afib Sister Afib Other Mental health problem Social History Housing: House Alcohol intake: never Patient Tobacco Use Status: Never used Tobacco e-Cigarette/Vaping Use: Never Used Second Hand Smoke Exposure: Yes service: No Current occupational status: employed Cognitive needs: No Hearing needs: Yes Vision needs: No Questionnaire PHQ-9 Over the last 2 weeks, how often have you been bothered by any of the following problems? 1. Little interest or pleasure in doing things: not at all 2. Feeling down, depressed, or hopeless: not at all 3. Trouble falling or staying asleep, or sleeping too much: not at all 4. Feeling tired or having little energy: not at all 5. Poor appetite or overeating: not at all 6. Feeling bad about yourself - or that you are a failure or have let yourself or your family down: not at all 7. Trouble concentrating on things, such as reading the newspaper or watching television: not at all 8. Moving or speaking so slowly that other people could have noticed. Or the opposite - being so fidgety or restless that you have been moving around a lot more than usual: not at all 9. Thoughts that you would be better off or of hurting yourself in some way: not at all Total score: 0 Depression Screening Interpretation: Negative Depression Screening Done: Yes 83799 - PHQ-9 Billing: Yes Source: Developed by Drs. Milind Vu, Aminah Cross, Donnie Coles and colleagues, with an educational breana from [employer]. Thrive Questionnaire Date Thrive assessed: 04/28/24 I am a: Patient What is your living situation today?: I have a steady place to live Within the past 12 months, did the food you bought not last and you didn't have the money to get more?: Never true Within the past 12 months, did you worry whether your food would run out before you got money to buy more?: Never true Do you have trouble paying for medicines?: No Do you have trouble getting transportation to medical appointments?: No Do you have trouble paying your heating and electricity bill?: No Do you have trouble taking care of your child, family member or friend?: No Do you have trouble with day-to-day activities such as bathing, preparing meals, shopping, managing finances, etc.?: No Are you currently unemployed and looking for a job?: No Are you interested in more education?: No Please select the resources that you would like help with: None Currently or been in a relationship where the following occur: No concerns reported THRIVE Score: 0 AUDIT C Alcohol Use Questionnaire (AUDIT-C) 1. How often do you have a drink containing alcohol?: Never 3. How often do you have six or more drinks on one occasion?: Never Total Score: 0 Score Reviewed/Action Taken: Yes ROYER-7 AMB Questionnaire ROYER-7 Date ROYER - 7 assessed: 04/28/24 Feeling nervous, anxious, or on edge: 0 = Not at all Not being able to stop or control worryin = Not at all Worrying too much about different things: 0 = Not at all Trouble relaxin = Not at all Being so restless that it is hard to sit still: 0 = Not at all Becoming easily annoyed or irritable: 0 = Not at all Feeling afraid as if something awful might happen: 0 = Not at all Total ROYER-7 score (0-4 normal; 5-9 mild; 10-14 moderate; 15-21 severe): 0 Source: Developed by Drs. Milind Vu, Aminah Cross, Donnie Coles and colleagues, with an educational breana from [employer]. ROYER-7 Assessment Billing ROYER-7 Assessment Tool: ROYER-7 Assessment 47895 Review of Systems Const Denies chills, Denies fatigue, Denies fever(s) and Denies headache(s) ENT Denies dysphagia, Denies dizziness, Denies otalgia, Denies headache(s), Denies neck pain, Denies odynophagia and Denies sore throat Card Denies chest pain, Denies palpitations and Denies dyspnea Resp Denies chest congestion, Denies cough and Denies dyspnea GI Denies abdominal pain, Denies constipation, Denies dysphagia, Denies heartburn, Denies diarrhea, Denies nausea, Denies odynophagia and Denies vomiting Reports oliguria (weak urinary stream), Denies dysuria, Reports nocturia and Denies urinary frequency Musc Denies back pain and Denies neck pain Skin/Breast Denies rash Neuro Denies dizziness and Denies headache(s) Endo Denies fatigue and Denies palpitations Physical exam (Primary Care) Vital Signs: Last Vital Signs Pulse 106 H 04/28/24 14:43 BP 128/74 04/28/24 14:43 Oxygen Delivery Method Room Air 04/28/24 14:43 BMI result Body Mass Index 38.4 Tobacco/Smoking Status: Tobacco use Status Tobacco use date assessed 04/28/24 04/28/24 14:45 Patient Tobacco Use Status Never used Tobacco 04/28/24 14:45 e-Cigarette/Vaping Use Never Used 04/28/24 14:45 PHQ-9: PHQ-9 Score PHQ-9: Total score 0 04/28/24 15:42 Depression Screening Interpretation: Negative Thrive Assessment: Date of Thrive Assessment Date Thrive assessed 04/28/24 04/28/24 14:45 Currently or been in a relationship where the following occur: No concerns reported Const General: no acute distress and alert HENMT Ears: TM's normal bilaterally and EAC's normal Throat: Yes posterior oropharynx normal and Yes tonsils normal (no TP congestion) Neck Neck: Yes no lymphadenopathy and Yes supple Thyroid: Thyroid normal Resp Auscultation: clear to auscultation bilaterally, no rales and no wheezes Cardio Rate: regular rate Rhythm: regular rhythm Heart sounds: no murmurs GI Palpation (GI): Soft to palpation and nontender Auscultation: normal bowel sounds General: Yes no CVA tenderness Back/Spine/Pelvis Back: no CVA tenderness Thoracic/Lumbar Spine: No lumbar spinal tenderness Skin Rashes: no rashes Extrem General: Yes no clubbing, cyanosis or edema Left upper extremity: wrist ((+) tenderness on exam) Results Reviewed Results Reviewed: Laboratory Tests 01/05/23 09/25/23 01/09/24 08:12 14:13 07:41 WBC Hgb Hct Plt Count Sodium Potassium Creatinine Estimated GFR Fasting Glucose Hgb A1c (Clinic) 9.3 H Hemoglobin A1c % 9.3 H Calcium AST ALT Triglycerides 166 H 376 H Cholesterol 168 201 H LDL Cholesterol, Calc 96 82 HDL Cholesterol 39 L 44 25-OH Vitamin D Total TSH Ur Specific [place] Urine Protein Urine Glucose (UA) Urine Blood Urine Nitrite Ur Leukocyte Esterase Microalb/Creat Ratio 04/25/24 04/25/24 08:25 08:31 WBC 9.6 Hgb 16.7 Hct 49.1 Plt Count 322 Sodium 139 Potassium 3.7 Creatinine 0.84 Estimated GFR > 60 Fasting Glucose 195 H Hgb A1c (Clinic) Hemoglobin A1c % 10.3 H Calcium 9.4 D AST 23 ALT 23 Triglycerides Cholesterol LDL Cholesterol, Calc HDL Cholesterol 25-OH Vitamin D Total 25.5 L TSH 2.10 Ur Specific [place] > 1.030 H Urine Protein Negative Urine Glucose (UA) >=1000 H Urine Blood Negative Urine Nitrite Negative Ur Leukocyte Esterase Negative Microalb/Creat Ratio 20.9 Coding Level of Care Code Est Pt Level 4 (75955) Diagnoses Type 2 diabetes mellitus with hyperglycemia, without long-term current use of insulin E11.65 Diabetes mellitus type: type 2 Benign essential hypertension I10 Dyslipidemia E78.5 Intermittent palpitations R00.2 GERD without esophagitis K21.9 Allergic rhinitis due to other allergic trigger, unspecified seasonality J30.89 Allergic rhinitis trigger: other Allergic rhinitis seasonality: unspecified Vitamin D deficiency E55.9 Primary osteoarthritis of both knees M17.0 Closed fracture of left wrist, sequela S62.102S Encounter type: sequela Fracture type: closed Urethritis N34.2 Benign prostatic hyperplasia with weak urinary stream N40.1; R39.12 Obesity (BMI 30-39.9) E66.9 Additional Codes ROYER-7 Assessment Billing - ROYER-7 Assessment Tool: ROYER-7 Assessment 77476 ([id number]) PHQ-9 - 63440 - PHQ-9 Billing: Yes ([id number]) Assessment & Plan Assessment & Plan (1) Diabetes mellitus with hyperglycemia, without long-term current use of insulin: Code(s): E11.65 - Type 2 diabetes mellitus with hyperglycemia Category: Medical Qualifiers: Diabetes mellitus type: type 2 Qualified Code(s): E11.65 - Type 2 diabetes mellitus with hyperglycemia Plan: His HgbA1c has increased to 10.3% on his labs done a few days ago (HgbA1c was previously at 9.3% ago) - goal is HgbA1c of at least < 7.0% Reinforced diabetic diet Continue?Pioglitazone?45 mg once a day,?Metformin ER 500 mg 2 tablets BID, Trulicity?4.5 mg subcutaneous injection once a week and?Jardiance?25 mg once a day Follow up with endocrinology (Dr. Walker) as scheduled Have cautioned patient that despite being maxed out on the doses on all of his current medications, his diabetes control has actually gotten worse over the past several months and that in the past 2 years, he has never been able to get his HgbA1c lower than 8.8% Have reminded him of what we have discussed previously - that the longer his diabetes stays uncontrolled, the more likely he will end up being on insulin at some point Have advised patient that he really needs to get serious about getting his diabetes under control and should discuss further with Dr. Walker at his upcoming appointment with him in a few weeks as to what to do now to get his diabetes better controlled (2) Benign essential hypertension: Code(s): I10 - Essential (primary) hypertension Category: Medical Plan: Reinforced low-sodium diet -? goal is systolic BP of at least 120 to 130 mm or less Continue?Irbesartan?300 mg once a day,?Amlodipine?10 mg once a day and? Hydrochlorothiazide?25 mg once a day in AM (3) Dyslipidemia: Code(s): E78.5 - Hyperlipidemia, unspecified Category: Medical Plan: Results of his labs done a few days ago reviewed and discussed with patient although his recent labs did not include a fasting lipid profile He is again cautioned that his serum triglyceride level has gone up significantly to 376 mg/dl when they were last checked in December 2023, likely in relation to his hyperglycemia Reinforced low cholesterol diet Continue Atorvastatin 10 mg QD Will recheck his labs and fasting lipids in 3 months for follow up (4) Intermittent palpitations: Code(s): R00.2 - Palpitations Category: Medical Plan: Echocardiogram and Holter monitor done last year were both normal and unrevealing Patient states that his symptoms (palpitations) have subsided a lot lately He was seen by cardiology recently for follow-up and was advised continued observation for now but he was cautioned that the possibility of AF remains high and he should call if his symptoms get worse at any time Follow up with cardiology as scheduled (5) GERD without esophagitis: Code(s): K21.9 - Gastro-esophageal reflux disease without esophagitis Category: Medical Plan: Dietary restrictions reinforced Continue Omeprazole 20 mg QD (6) Allergic rhinitis: Code(s): J30.9 - Allergic rhinitis, unspecified Category: Medical Qualifiers: Allergic rhinitis trigger: other Allergic rhinitis seasonality: unspecified Qualified Code(s): J30.89 - Other allergic rhinitis Plan: Continue Cetirizine 10 mg QD PRN (7) Vitamin D deficiency: Code(s): E55.9 - Vitamin D deficiency, unspecified Category: Medical Plan: Continue Vitamin D2 1250 mcg once a week (8) Primary osteoarthritis of both knees: Code(s): M17.0 - Bilateral primary osteoarthritis of knee Category: Medical Plan: X-rays of both knees done back in September 2017 showed mild OA changes in both knees States (+) symptomatic relief with OTC Advil PRN To consider referral to Orthopedics if his knee symptoms progress or get worse (9) Left wrist fracture: Code(s): S62.102A - Fracture of unspecified carpal bone, left wrist, initial encounter for closed fracture Category: Medical Qualifiers: Encounter type: sequela Fracture type: closed Qualified Code(s): S62.102S - Fracture of unspecified carpal bone, left wrist, sequela Plan: X-rays of the left wrist done at the emergency room at [facility] on 09/10/2023 revealed (+) comminuted impacted displaced distal intra-articular radius fracture and displaced ulnar styloid fracture He underwent reduction of his comminuted wrist fracture by orthopedics in the ER back on 09/10/2023 Follow up with orthopedics as scheduled (10) Urethritis: Code(s): N34.2 - Other urethritis Category: Medical Plan: Continue Fluconazole 150 mg QD Follow-up with urology as scheduled for continuing management of his chronic/recurrent symptoms (11) Benign prostatic hyperplasia with weak urinary stream: Code(s): N40.1 - Benign prostatic hyperplasia with lower urinary tract symptoms; R39.12 - Poor urinary stream Category: Medical Plan: Continue Tadalafil 5 mg QD Follow up with urology as scheduled (12) Obesity (BMI 30-39.9): Code(s): E66.9 - Obesity, unspecified Category: Medical Plan: Reinforced diet/exercise as tolerated/lose weight Plan Follow-up in 3 months Orders: Orders Comprehensive [place]. Panel Fast 3 Months E78.00 - Pure hypercholesterolemia, unspecified Complete Blood Count Auto Diff 3 Months D64.9 - Anemia, unspecified Lipid Panel 3 Months E78.00 - Pure hypercholesterolemia, unspecified Hemoglobin A1c 3 Months E11.9 - Type 2 diabetes mellitus without complications TSH reflex Free T4 3 Months E78.00 - Pure hypercholesterolemia, unspecified Microalbumin, Random (w Creat) 3 Months E11.9 - Type 2 diabetes mellitus without complications UA CC w/rflx Micro + Cult 3 Months R30.0 - Dysuria Vitamin D 25-OH Total 3 Months E55.9 - Vitamin D deficiency, unspecified
== END 2024-04-28 16:05 | disposition home or self-care (01) ==
LOC: HO.HMCH 14:30
PROVIDERS: PCP Internal Medicine; Visit Provider Internal Medicine
DX: E11.65 Type 2 diabetes mellitus with hyperglycemia (principal); I10 Essential (primary) hypertension; E66.9 Obesity, unspecified; Z68.38 Body mass index [BMI] 38.0-38.9, adult; E78.5 Hyperlipidemia, unspecified; R00.2 Palpitations; K21.9 Gastro-esophageal reflux disease without esophagitis; J30.89 Other allergic rhinitis; E55.9 Vitamin D deficiency, unspecified; M17.0 Bilateral primary osteoarthritis of knee; S62.102S Fracture of unspecified carpal bone, left wrist, sequela; N34.2 Other urethritis

== ENCOUNTER → 2024-04-28 14:30 | Outpatient (BNVA) | payer OTHER, SELFPAY | PROVIDERS: PCP Internal Medicine; Visit Provider Internal Medicine | DX: E11.65 Type 2 diabetes mellitus with hyperglycemia (principal); E78.5 Hyperlipidemia, unspecified; R00.2 Palpitations; I10 Essential (primary) hypertension; K21.9 Gastro-esophageal reflux disease without esophagitis; J30.89 Other allergic rhinitis; E55.9 Vitamin D deficiency, unspecified; E66.9 Obesity, unspecified; R39.12 Poor urinary stream; N40.1 Benign prostatic hyperplasia with lower urinary tract symptoms; N34.2 Other urethritis; M17.0 Bilateral primary osteoarthritis of knee | CPT/HCPCS: 96127; 99212 ==

== ENCOUNTER 2024-05-30 09:11 | Outpatient (REF) | payer OTHER, SELFPAY ==
[2024-05-30 10:29] LABS: Appearance Urine Cloudy; Color Urine Yellow; Glucose Urine UA >=1000 mg/dL (Negative); Leukocyte Esterase Urine Negative (Negative); Nitrite Urine Negative (Negative); Specific Gravity - Urine >= 1.030 (1.005-1.025); UMIC TRIGGER UACC YES; Urine Blood Negative (Negative); Urine Ketones Trace mg/dL (Negative); Urine Protein Negative (Neg-Trace)
[2024-05-30 10:38] LABS: Bacteria Urine None Seen (None Seen); Hyaline Casts Urine 0-2 /LPF (0-2); RBC Urine 0-2 /HPF (0-2); Squamous Epithelial Cell Urine 0-2 /HPF (0-2); WBC Urine 0-5 /HPF (0-5)
[2024-06-01 15:49] LABS: Trichomonas vag. RNA Ur Male NOT DETECTED (NOT DETECTED)
== END 2024-05-30 09:12 | disposition home or self-care (01) ==
LOC: HO.LAB 09:11
PROVIDERS: PCP Internal Medicine
DX: R30.0 Dysuria (principal)
CPT/HCPCS: 36415; 81001; 81003; 87661

== ENCOUNTER 2024-07-11 08:34 | Outpatient (REF) | payer OTHER, SELFPAY ==
--- OUTSIDE RECORDS SUMMARY | 2024-07-11 08:37 | XMS_ITS | Continuity of Care Document ---
Author Name [facility] Organization [facility] Care Team Providers Care Electrician Rectifier Maintenance Name Role Phone [facility] Unavailable Unavailable Medications Combined list of outpatient medications from Department of Defense and Veterans Affairs facilities.Medications provided include 1) outpatient medications from the last 15 months, and 2) patient-reported medications. Medication Details Route Status Patient Instructions Prescription Expires Prescription Number Last Dispense Date Ordering Provider Order Date Order Qty Source GAVILYTE-G (PEG 3350/NA SULF,BICARB ,CL/KCL), 236-22.74G, SOLN RECON, ORAL, GAVIS PHARMACEU, 4000 ml BOTTLE Cancele d [id number] : 2023 0 Pharmac y Data Transac tion Service Facilit y GAVILYTE-G (PEG 3350/NA SULF,BICARB ,CL/KCL), 236-22.74G, SOLN RECON, ORAL, GAVIS PHARMACEU, 4000 ml BOTTLE Cancele d [id number] : 2023 0 Pharmac y Data Transac tion Service Facilit y GAVILYTE-G (PEG 3350/NA SULF,BICARB ,CL/KCL), 236-22.74G, SOLN RECON, ORAL, GAVIS PHARMACEU, 4000 ml BOTTLE Active [id number] 2023 4000 Pharmac y Data Transac tion Service Facilit y JARDIANCE (EMPAGLIFLO ZIN), 25 MG, TABLET, ORAL, BOEHRINGER ING., 90 ea. BOTTLE Active [id number] 2023 90 Pharmac y Data Transac tion Service Facilit y JARDIANCE (EMPAGLIFLO ZIN), 25 MG, TABLET, ORAL, BOEHRINGER ING., 90 ea. BOTTLE Cancele d [id number] : 2023 0 Pharmac y Data Transac tion Service Facilit y METFORMIN HCL ER (metformin HCl), 500 MG, TAB ER 24H, ORAL, AVKARE, 1000 ea. BOTTLE Active [id number] 4 2023 360 Pharmac y Data Transac tion Service Facilit y PIOGLITAZON E HCL (PIOGLITAZO NE HCL), 45 MG, TABLET, ORAL, AUROBINDO PHARM, 30 ea. BOTTLE Active [id number] 4 2023 90 Pharmac y Data Transac tion Service Facilit y PIOGLITAZON E HCL (PIOGLITAZO NE HCL), 45 MG, TABLET, ORAL, AUROBINDO PHARM, 30 ea. BOTTLE Active [id number] 4 2023 90 Pharmac y Data Transac tion Service Facilit y TRULICITY (dulaglutid e), 4.5 MG/0.5, PEN INJCTR, SUBCUT, [employer]ASH[employer] .5 ml SYRINGE Cancele d [id number] : 2023 0 Pharmac y Data Transac tion Service Facilit y Immunizations Combined list of available immunizations from the Department of Defense and Veterans Affairs facilities. Immunization Series Date Given Administered By Site Reaction Lot Number CVX Code Drug Fishery Biologist Status Comments Source COVID-19, mRNA, LNP-S, PF, 100 mcg or 50 mcg dose 2021 BOGDASARIAN, () Not Given COVID-19, mRNA, LNP-S, PF, 100 mcg or 50 mcg dose DoD Social History Combined list of available smoking, tobacco, and other social history from Department of Defense and Veterans Affairs facilities. Social History Type Response Date Comment [facility] e This section is an empty social history section. [facility]
[2024-07-11 09:12] LABS: MANUAL DIFF FLAG NO
[2024-07-11 09:58] LABS: Basophils Absolute Auto 0.1 X10*3/uL (0.0-0.2); Basophils Percent Auto 0.7 % (0-2); Eosinophils Absolute Auto 0.2 X10*3/uL (0.0-0.4); Eosinophils Percent Auto 1.6 % (0-4); Hematocrit 47.6 % (42.0-52.0); Hemoglobin 16.2 g/dl (14.0-18.0); Imm Gran Abs Auto 0.05 X10*3/uL (0.00-0.03); Imm Gran Pct Auto 0.5 % (0.0-0.4); Lymphocytes Absolute Auto 1.6 X10*3/uL (1.2-4.9); Mean Corpuscular Hemoglobin 30.3 pg (27.0-33.0); Mean Corpuscular Volume 89.1 fL (80.0-98.0); Mean Platelet Volume 9.9 fL (9.4-12.4); Monocytes Absolute Auto 0.8 X10*3/uL (0.1-1.2); Monocytes Percent Auto 7.4 % (2-11); Neutrophils Absolute Auto 8.1 x10*3/uL (2.0-8.3); Neutrophils Percent Auto 74.8 % (45-73); Platelet Count 310 X10*3/uL (160-400); Red Blood Count 5.34 X10*6/uL (4.60-5.80); Red Cell Distribution Width 13.3 % (11.0-16.0); White Blood Count 10.8 X10*3/uL (4.8-10.8)
[2024-07-11 10:33] LABS: Appearance Urine Clear; Color Urine Yellow; Glucose Urine UA >=1000 mg/dL (Negative); Leukocyte Esterase Urine Negative (Negative); Nitrite Urine Negative (Negative); Specific Gravity - Urine >= 1.030 (1.005-1.025); UMIC TRIGGER UACC YES; Urine Blood Negative (Negative); Urine Ketones 15 mg/dL (Negative); Urine Protein Negative (Neg-Trace)
[2024-07-11 10:37] LABS: Bacteria Urine None Seen (None Seen); Hyaline Casts Urine 0-2 /LPF (0-2); RBC Urine 0-2 /HPF (0-2); Squamous Epithelial Cell Urine 0-2 /HPF (0-2); WBC Urine 0-5 /HPF (0-5)
[2024-07-11 10:54] LABS: Alanine Aminotransferase 20 U/L (0-40); Albumin Level 4.6 g/dL (3.5-5.0); Alkaline Phosphatase 85 U/L (39-117); Anion Gap 17 (12-20); Aspartate Amino Transferase 21 U/L (5-37); Bilirubin Total 1.3 mg/dL (0.0-1.0); Blood Urea Nitrogen 12 mg/dL (9-16); Calcium 9.5 mg/dL (8.4-10.2); Carbon Dioxide 28 mmol/L (22-29); Chloride 101 mmol/L (96-108); Cholesterol 168 mg/dL (<200); Estimated Glomerular Filt Rate > 60; Glucose Fasting 173 mg/dL (60-99); HDL Cholesterol 46 mg/dL (>40); LDL Cholesterol Calculated 100 mg/dL (<100); Potassium 3.8 mmol/L (3.3-5.1); Sodium 142 mmol/L (135-145); Total Protein 7.6 g/dL (6.5-8.0); Triglycerides 112 mg/dL (<150)
[2024-07-11 10:55] LABS: TSH reflex Free T4 1.52 uIU/mL (0.32-4.0)
[2024-07-11 11:07] LABS: Estimated Average Glucose 209 mg/dL; Hemoglobin A1C 309.4627 umol/L; Hemoglobin A1c % 8.9 % (<6.0); Total Hemoglobin (HGBA1C) 4209.6842 umol/L
[2024-07-11 11:08] LABS: Creatinine Urine 62.42 mg/dL; Microalbum/Creatinine Ratio Ur 17.6 ug/mg cr (<30)
== END 2024-07-11 08:35 | disposition home or self-care (01) ==
LOC: HO.LAB 08:34
PROVIDERS: PCP Internal Medicine; Visit Provider Internal Medicine
DX: D64.9 Anemia, unspecified (principal); E55.9 Vitamin D deficiency, unspecified; E11.9 Type 2 diabetes mellitus without complications; E78.00 Pure hypercholesterolemia, unspecified
CPT/HCPCS: 36415; 80053; 80061; 81001; 82043; 82306; 82570; 83036; 84443; 85025

== ENCOUNTER 2024-07-13 15:20 | Outpatient (AMB) | payer OTHER, SELFPAY ==
--- NOTE | 2024-07-13 15:46 | A.OFFPC_ITS ---
Vital Signs 07/13/24 15:47 Height 5 ft 9 in Weight 255 lb 8 oz BMI 37.7 BP 126/80 Blood Pressure Location Lt brachial Position Sitting Pulse 83 Pulse Source Pulse Oximeter Pulse Oximetry (%) 96 Oxygen Delivery Method Room Air Intake Visit Reasons: DM, hyperlipidemia, HTN Bilingual Medical Assistant Required: No Accompanied by: Self / Same As Patient Allergies codeine [CODEINE] Allergy (Severe, Verified 07/13/24 16:13) CONVULSIONS, anaphylaxis Penicillins [PENICILLINS] Allergy (Severe, Verified 07/13/24 16:13) ANAPHYLAXIS erythromycin base Allergy (Unknown, Verified 07/13/24 16:13) Unknown penicillin V Allergy (Unknown, Verified 07/13/24 16:13) anaphylaxis, throat swelling pollen extracts Allergy (Unknown, Verified 07/13/24 16:13) Unknown Salter Path Allergy (Unknown, Verified 07/13/24 16:13) tongue spits in two, tongue swelling Sulfa (Sulfonamide Antibiotics) Allergy (Unknown, Verified 07/13/24 16:13) hives Medication List - Last Reconciled 07/13/24 by Abdoulaye Lucas MD amlodipine 10 mg PO DAILY atorvastatin 20 mg PO DAILY blood sugar diagnostic (FreeStyle Lite Strips) 4x daily blood-glucose meter (FreeStyle Lite Meter kit) As directed dulaglutide 4.5 mg (0.5 mL) subcut QWEEK 3 months empagliflozin (Jardiance) 25 mg PO DAILY 90 days ergocalciferol (vitamin D2) 1,250 mcg PO QWEEK 3 months hydrochlorothiazide 25 mg PO DAILY irbesartan 300 mg PO DAILY lancets (FreeStyle Lancets) 4x daily metformin ER 1,000 mg (2 x 500 mg) PO BID 90 days omeprazole 20 mg PO DAILY pioglitazone 45 mg PO DAILY 90 days Tobacco use date assessed: 07/13/24 Dental Screening Dental Screen Date: 07/13/24 Did you have a dental visit in the last 12 months?: Yes Did you have a dental problem in the last 6 months where you did not have access to dental care?: No Was dental information given to patient?: Patient has dentist HPI DM, hyperlipidemia, HTN HPI Details Patient comes in today for his follow up visit States that he feels okay He denies any headaches or dizziness Denies any chest pains, no shortness of breath No nausea/vomiting, no abdominal pain No change in bowel habits noted He had his follow-up labs done a couple of days ago - to discuss his results [facility] Medical History Abnormal echocardiogram Vitamin D deficiency Obesity (BMI 30-39.9) HLD (hyperlipidemia) HTN (hypertension) T2DM (type 2 diabetes mellitus) Low back pain Morbid obesity with BMI of 40.0-44.9, adult Urethritis Allergic rhinitis Primary osteoarthritis of both knees GERD without esophagitis Dyslipidemia Benign essential hypertension Diabetes mellitus with hyperglycemia, without long-term current use of insulin Surgical History History of drainage of abscess History of umbilical hernia repair Family History Father No problems noted. Mother Chronic mental illness CVD (cardiovascular disease) Maternal Grandmother Brain cancer Brother CVD (cardiovascular disease) Afib Sister Afib Other Mental health problem Social History Housing: House Alcohol intake: never Patient Tobacco Use Status: Never used Tobacco e-Cigarette/Vaping Use: Never Used Second Hand Smoke Exposure: Yes service: No Current occupational status: employed Cognitive needs: No Hearing needs: Yes Vision needs: No Questionnaire PHQ-9 Over the last 2 weeks, how often have you been bothered by any of the following problems? 1. Little interest or pleasure in doing things: nearly every day 2. Feeling down, depressed, or hopeless: not at all 3. Trouble falling or staying asleep, or sleeping too much: not at all 4. Feeling tired or having little energy: not at all 5. Poor appetite or overeating: not at all 6. Feeling bad about yourself - or that you are a failure or have let yourself or your family down: not at all 7. Trouble concentrating on things, such as reading the newspaper or watching television: not at all 8. Moving or speaking so slowly that other people could have noticed. Or the opposite - being so fidgety or restless that you have been moving around a lot more than usual: not at all 9. Thoughts that you would be better off or of hurting yourself in some way: not at all Total score: 3 Depression Screening Interpretation: Negative Depression Screening Done: Yes 11734 - PHQ-9 Billing: Yes Source: Developed by Drs. Milind Vu, Aminah Cross, Donnie Coles and colleagues, with an educational breana from [employer]. Thrive Questionnaire Date Thrive assessed: 07/13/24 I am a: Patient What is your living situation today?: I have a steady place to live Within the past 12 months, did the food you bought not last and you didn't have the money to get more?: Never true Within the past 12 months, did you worry whether your food would run out before you got money to buy more?: Never true Do you have trouble paying for medicines?: No Do you have trouble getting transportation to medical appointments?: No Do you have trouble paying your heating and electricity bill?: No Do you have trouble taking care of your child, family member or friend?: No Do you have trouble with day-to-day activities such as bathing, preparing meals, shopping, managing finances, etc.?: No Are you currently unemployed and looking for a job?: No Are you interested in more education?: No Please select the resources that you would like help with: None Currently or been in a relationship where the following occur: No concerns reported THRIVE Score: 0 AUDIT C Alcohol Use Questionnaire (AUDIT-C) 1. How often do you have a drink containing alcohol?: Never 3. How often do you have six or more drinks on one occasion?: Never Total Score: 0 Score Reviewed/Action Taken: Yes ROYER-7 AMB Questionnaire ROYER-7 Date ROYER - 7 assessed: 07/13/24 Feeling nervous, anxious, or on edge: 0 = Not at all Not being able to stop or control worryin = Not at all Worrying too much about different things: 0 = Not at all Trouble relaxin = Not at all Being so restless that it is hard to sit still: 0 = Not at all Becoming easily annoyed or irritable: 0 = Not at all Feeling afraid as if something awful might happen: 0 = Not at all Total ROYER-7 score (0-4 normal; 5-9 mild; 10-14 moderate; 15-21 severe): 0 Source: Developed by Drs. Milind Vu, Aminah Cross, Donnie Coles and colleagues, with an educational breana from [employer]. Review of Systems Const Denies chills, Denies fatigue, Denies fever(s) and Denies headache(s) ENT Denies dysphagia, Denies dizziness, Denies otalgia, Denies headache(s), Denies neck pain, Denies odynophagia and Denies sore throat Card Denies chest pain, Denies palpitations and Denies dyspnea Resp Denies chest congestion, Denies cough and Denies dyspnea GI Denies abdominal pain, Denies constipation, Denies dysphagia, Denies heartburn, Denies diarrhea, Denies nausea, Denies odynophagia and Denies vomiting Reports oliguria (weak urinary stream), Denies dysuria, Reports nocturia and Denies urinary frequency Musc Denies back pain and Denies neck pain Skin/Breast Denies rash Neuro Denies dizziness and Denies headache(s) Endo Denies fatigue and Denies palpitations Physical exam (Primary Care) Vital Signs: Last Vital Signs Pulse 83 07/13/24 15:47 BP 126/80 07/13/24 15:47 Pulse Ox 96 07/13/24 15:47 Oxygen Delivery Method Room Air 07/13/24 15:47 BMI result Body Mass Index 37.7 Tobacco/Smoking Status: Tobacco use Status Tobacco use date assessed 07/13/24 07/13/24 15:50 Patient Tobacco Use Status Never used Tobacco 07/13/24 15:50 e-Cigarette/Vaping Use Never Used 07/13/24 15:50 PHQ-9: PHQ-9 Score PHQ-9: Total score 3 07/13/24 16:14 Depression Screening Interpretation: Negative Thrive Assessment: Date of Thrive Assessment Date Thrive assessed 07/13/24 07/13/24 15:50 Currently or been in a relationship where the following occur: No concerns reported Const General: no acute distress and alert HENMT Ears: TM's normal bilaterally and EAC's normal Throat: Yes posterior oropharynx normal and Yes tonsils normal (no TP congestion) Neck Neck: Yes supple and No lymphadenopathy Thyroid: Thyroid normal Resp Auscultation: clear to auscultation bilaterally, no rales and no wheezes Cardio Rate: regular rate Rhythm: regular rhythm Heart sounds: no murmurs GI Palpation (GI): Soft to palpation and nontender Auscultation: normal bowel sounds General: Yes no CVA tenderness Back/Spine/Pelvis Back: no CVA tenderness Thoracic/Lumbar Spine: No lumbar spinal tenderness Skin Rashes: no rashes Extrem General: Yes no clubbing, cyanosis or edema Left upper extremity: wrist ((+) tenderness on exam) Results Reviewed Results Reviewed: Laboratory Tests 07/11/24 07/11/24 09:04 09:05 WBC 10.8 Hgb 16.2 Hct 47.6 Plt Count 310 Sodium 142 Potassium 3.8 Creatinine 0.73 Estimated GFR > 60 Fasting Glucose 173 H Hemoglobin A1c % 8.9 H Calcium 9.5 AST 21 ALT 20 Triglycerides 112 Cholesterol 168 LDL Cholesterol, Calc 100 H HDL Cholesterol 46 25-OH Vitamin D Total 27.0 L TSH 1.52 Ur Specific [place] >= 1.030 H Urine Protein Negative Urine Glucose (UA) >=1000 H Urine Blood Negative Urine Nitrite Negative Ur Leukocyte Esterase Negative Microalb/Creat Ratio 17.6 Coding Level of Care Code Est Pt Level 4 (46737) Complex EM visit Add On G2211 Diagnoses Type 2 diabetes mellitus with hyperglycemia, without long-term current use of insulin E11.65 Diabetes mellitus type: type 2 Benign essential hypertension I10 Dyslipidemia E78.5 Intermittent palpitations R00.2 GERD without esophagitis K21.9 Allergic rhinitis due to other allergic trigger, unspecified seasonality J30.89 Allergic rhinitis seasonality: unspecified Allergic rhinitis trigger: other Vitamin D deficiency E55.9 Primary osteoarthritis of both knees M17.0 Urethritis N34.2 Benign prostatic hyperplasia with weak urinary stream N40.1; R39.12 Obesity (BMI 30-39.9) E66.9 Additional Codes PHQ-9 - 17303 - PHQ-9 Billing: Yes ([id number]) Assessment & Plan Assessment & Plan (1) Diabetes mellitus with hyperglycemia, without long-term current use of insulin: Code(s): E11.65 - Type 2 diabetes mellitus with hyperglycemia Category: Medical Qualifiers: Diabetes mellitus type: type 2 Qualified Code(s): E11.65 - Type 2 diabetes mellitus with hyperglycemia Plan: His HgbA1c has increased to 8.9% on his labs done a couple of days ago (HgbA1c was previously at 10.3% ago) - goal is HgbA1c of at least < 7.0% Reinforced diabetic diet Continue?Pioglitazone?45 mg once a day,?Metformin ER 500 mg 2 tablets BID, Trulicity?4.5 mg subcutaneous injection once a week and?Jardiance?25 mg once a day Follow up with endocrinology (Dr. Walker) as scheduled (2) Benign essential hypertension: Code(s): I10 - Essential (primary) hypertension Category: Medical Plan: Reinforced low-sodium diet -? goal is systolic BP of at least 120 to 130 mm or less Continue?Irbesartan?300 mg once a day,?Amlodipine?10 mg once a day and? Hydrochlorothiazide?25 mg once a day in AM (3) Dyslipidemia: Code(s): E78.5 - Hyperlipidemia, unspecified Category: Medical Plan: Results of his labs done a couple of days ago reviewed and discussed with patient Reinforced low cholesterol diet Continue Atorvastatin 10 mg QD Will recheck his labs and fasting lipids in 3 months for follow up (4) Intermittent palpitations: Code(s): R00.2 - Palpitations Category: Medical Plan: Echocardiogram and Holter monitor done last year were both normal and u nrevealing Patient states that his symptoms (palpitations) have subsided a lot lately He was seen by cardiology for follow-up a few months ago and was advised continued observation for now but he was cautioned that the possibility of AF remains high and he should call if his symptoms get worse at any time Follow up with cardiology as scheduled (5) GERD without esophagitis: Code(s): K21.9 - Gastro-esophageal reflux disease without esophagitis Category: Medical Plan: Dietary restrictions reinforced Continue Omeprazole 20 mg QD (6) Allergic rhinitis: Code(s): J30.9 - Allergic rhinitis, unspecified Category: Medical Qualifiers: Allergic rhinitis seasonality: unspecified Allergic rhinitis trigger: other Qualified Code(s): J30.89 - Other allergic rhinitis Plan: Continue Cetirizine 10 mg QD PRN (7) Vitamin D deficiency: Code(s): E55.9 - Vitamin D deficiency, unspecified Category: Medical Plan: Continue Vitamin D2 1250 mcg once a week (8) Primary osteoarthritis of both knees: Code(s): M17.0 - Bilateral primary osteoarthritis of knee Category: Medical Plan: X-rays of both knees done back in September 2017 showed mild OA changes in both knees States (+) symptomatic relief with OTC Advil PRN To consider referral to Orthopedics if his knee symptoms progress or get worse (9) Urethritis: Code(s): N34.2 - Other urethritis Category: Medical Plan: Continue Fluconazole 150 mg QD Follow-up with urology as scheduled for continuing management of his chronic/recurrent symptoms (10) Benign prostatic hyperplasia with weak urinary stream: Code(s): N40.1 - Benign prostatic hyperplasia with lower urinary tract symptoms; R39.12 - Poor urinary stream Category: Medical Plan: Continue Tadalafil 5 mg QD Follow up with urology as scheduled (11) Obesity (BMI 30-39.9): Code(s): E66.9 - Obesity, unspecified Category: Medical Plan: Reinforced diet/exercise as tolerated/lose weight Plan Follow-up in 3 months Orders: Orders Hemoglobin A1c 3 Months E11.9 - Type 2 diabetes mellitus without complications Complete Blood Count Auto Diff 3 Months D64.9 - Anemia, unspecified Comprehensive [place]. Panel Fast 3 Months E78.00 - Pure hypercholesterolemia, unspecified Lipid Panel 3 Months E78.00 - Pure hypercholesterolemia, unspecified Microalbumin, Random (w Creat) 3 Months E11.9 - Type 2 diabetes mellitus without complications UA CC w/rflx Micro + Cult 3 Months R30.0 - Dysuria Vitamin D 25-OH Total 3 Months E55.9 - Vitamin D deficiency, unspecified TSH reflex Free T4 3 Months E78.00 - Pure hypercholesterolemia, unspecified Vitamin B12 and Folate 3 Months E53.8 - Deficiency of other specified B group vitamins
[2024-07-13 15:47] VITALS: BP 126/80; PULSE 83; O2SAT 96; BMI 37.7
--- OUTSIDE RECORDS SUMMARY | 2024-07-13 16:57 | XMS_ITS | Continuity of Care Document ---
Author Name [facility] Organization [facility] Care Team Providers Care Strip Polisher Name Role Phone [facility] Unavailable Unavailable Medications Combined list of outpatient [...] GAVIS PHARMACEU, 4000 ml BOTTLE Cancele d [id number] : 2023 0 Pharmac y Data Transac tion Service Facilit y GAVILYTE-G (PEG 3350/NA SULF,BICARB ,CL/KCL), 236-22.74G, SOLN RECON, ORAL, GAVIS PHARMACEU, 4000 ml BOTTLE Cancele d [id number] : 2023 0 Pharmac y Data Transac tion Service Facilit y GAVILYTE-G (PEG 3350/NA SULF,BICARB ,CL/KCL), 236-22.74G, SOLN RECON, ORAL, GAVIS PHARMACEU, 4000 ml BOTTLE Active [id number] 4 2023 4000 Pharmac y Data Transac tion Service Facilit y JARDIANCE (EMPAGLIFLO ZIN), 25 MG, TABLET, ORAL, BOEHRINGER ING., 90 ea. BOTTLE Active [id number] 4 2023 90 Pharmac y Data Transac tion Service Facilit y JARDIANCE (EMPAGLIFLO ZIN), 25 MG, TABLET, ORAL, BOEHRINGER ING., 90 ea. BOTTLE Cancele d [id number] : 2023 0 Pharmac y Data Transac tion Service Facilit y METFORMIN HCL ER (metformin HCl), 500 MG, TAB ER 24H, ORAL, AVKARE, 1000 ea. BOTTLE Active [id number] 4 2023 360 Pharmac y Data Transac tion Service Facilit y PIOGLITAZON E HCL (PIOGLITAZO NE HCL), 45 MG, TABLET, ORAL, AUROBINDO PHARM, 30 ea. BOTTLE Active [id number] 4 2023 90 Pharmac y Data Transac tion Service Facilit y PIOGLITAZON E HCL (PIOGLITAZO NE HCL), 45 MG, TABLET, ORAL, AUROBINDO PHARM, 30 ea. BOTTLE Active [id number] 4 2023 90 Pharmac y Data Transac tion Service Facilit y TRULICITY (dulaglutid e), 4.5 MG/0.5, PEN INJCTR, SUBCUT, [employer] .5 ml SYRINGE Cancele d [id number] : 2023 0 Pharmac y Data Transac tion Service Facilit y Immunizations Combined list of available immunizations from the Department of Defense and Veterans Affairs facilities. 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 Social History Type Response Date Comment [facility] e This section is an empty social history section. [facility]
== END 2024-07-13 16:39 | disposition home or self-care (01) ==
LOC: HO.HMCH 15:21
PROVIDERS: PCP Internal Medicine; Visit Provider Internal Medicine
DX: E11.65 Type 2 diabetes mellitus with hyperglycemia (principal); I10 Essential (primary) hypertension; E66.9 Obesity, unspecified; Z68.37 Body mass index [BMI] 37.0-37.9, adult; E78.5 Hyperlipidemia, unspecified; R00.2 Palpitations; K21.9 Gastro-esophageal reflux disease without esophagitis; J30.89 Other allergic rhinitis; E55.9 Vitamin D deficiency, unspecified; M17.0 Bilateral primary osteoarthritis of knee; N34.2 Other urethritis; N40.1 Benign prostatic hyperplasia with lower urinary tract symptoms

== ENCOUNTER → 2024-07-13 15:20 | Outpatient (BNVA) | payer OTHER, SELFPAY | PROVIDERS: PCP Internal Medicine; Visit Provider Internal Medicine | DX: E11.65 Type 2 diabetes mellitus with hyperglycemia (principal); E78.5 Hyperlipidemia, unspecified; I10 Essential (primary) hypertension; R00.2 Palpitations; K21.9 Gastro-esophageal reflux disease without esophagitis; J30.89 Other allergic rhinitis; E55.9 Vitamin D deficiency, unspecified; M17.0 Bilateral primary osteoarthritis of knee; N34.2 Other urethritis; N40.1 Benign prostatic hyperplasia with lower urinary tract symptoms; R39.12 Poor urinary stream; E66.9 Obesity, unspecified; Z68.37 Body mass index [BMI] 37.0-37.9, adult; Z71.3 Dietary counseling and surveillance | CPT/HCPCS: 96127; 99212 ==

== ENCOUNTER 2025-02-08 16:36 | Outpatient (AMB) | payer OTHER, SELFPAY ==
[2025-02-08 16:39] VITALS: BP 122/80; PULSE 89; O2SAT 97; BMI 38.9
--- NOTE | 2025-02-08 16:39 | A.OFFPC_ITS ---
Vital Signs 02/08/25 16:39 Height 5 ft 9 in Weight 263 lb 6 oz BMI 38.9 BP 122/80 Blood Pressure Location Lt brachial Position Sitting Pulse 89 Pulse Source Pulse Oximeter Pulse Oximetry (%) 97 Oxygen Delivery Method Room Air Intake Visit Reasons: DM, hyperlipidemia, HTN [employer] Developer Required: No Accompanied by: Self / Same As Patient Allergies codeine (CODEINE) Allergy (Severe, Verified 02/08/25 17:11) CONVULSIONS, anaphylaxis Penicillins (PENICILLINS) Allergy (Severe, Verified 02/08/25 17:11) ANAPHYLAXIS erythromycin base Allergy (Unknown, Verified 02/08/25 17:11) Unknown penicillin V Allergy (Unknown, Verified 02/08/25 17:11) anaphylaxis, throat swelling pollen extracts Allergy (Unknown, Verified 02/08/25 17:11) Unknown [facility] Allergy (Unknown, Verified 02/08/25 17:11) tongue spits in two, tongue swelling Sulfa (Sulfonamide Antibiotics) Allergy (Unknown, Verified 02/08/25 17:11) hives Medication List - Last Reconciled 02/08/25 by Abdoulaye Lucas MD amlodipine 10 mg PO DAILY atorvastatin 20 mg PO DAILY blood sugar diagnostic (FreeStyle Lite Strips) 4x daily blood-glucose meter (FreeStyle Lite Meter kit) As directed dulaglutide 4.5 mg (0.5 mL) subcut QWEEK 3 months empagliflozin (Jardiance) 25 mg PO DAILY 90 days ergocalciferol (vitamin D2) 1,250 mcg PO QWEEK 3 months hydrochlorothiazide 25 mg PO DAILY irbesartan 300 mg PO DAILY lancets (FreeStyle Lancets) 4x daily metformin ER 1,000 mg (2 x 500 mg) PO BID 90 days omeprazole 20 mg PO DAILY pioglitazone 45 mg PO DAILY 90 days Tobacco use date assessed: 02/08/25 Dental Screening Dental Screen Date: 02/08/25 Did you have a dental visit in the last 12 months?: Yes Did you have a dental problem in the last 6 months where you did not have access to dental care?: No Was dental information given to patient?: Patient has dentist HPI DM, hyperlipidemia, HTN HPI Details Patient comes in today for his follow up visit States that he feels okay He denies any headaches or dizziness Denies any chest pains, no shortness of breath No nausea/vomiting, no abdominal pain No change in bowel habits noted He has no follow-up labs done recently He has been following up with Dr. Walker at [facility] for his diabetes but he has not seen Dr. Walker in a few months now Adds that he also needs several of his Rx refilled PFSH Medical History Abnormal echocardiogram Vitamin D deficiency Obesity (BMI 30-39.9) HLD (hyperlipidemia) HTN (hypertension) T2DM (type 2 diabetes mellitus) Low back pain Morbid obesity with BMI of 40.0-44.9, adult Urethritis Allergic rhinitis Primary osteoarthritis of both knees GERD without esophagitis Dyslipidemia Benign essential hypertension Diabetes mellitus with hyperglycemia, without long-term current use of insulin Surgical History History of drainage of abscess History of umbilical hernia repair Family History Father No problems noted. Mother Chronic mental illness CVD (cardiovascular disease) Maternal Grandmother Brain cancer Brother CVD (cardiovascular disease) Afib Sister Afib Other Mental health problem Social History Housing: House Alcohol intake: never Patient Tobacco Use Status: Never used Tobacco e-Cigarette/Vaping Use: Never Used Second Hand Smoke Exposure: Yes service: No Current occupational status: employed Cognitive needs: No Hearing needs: Yes Vision needs: No Questionnaire PHQ-9 Over the last 2 weeks, how often have you been bothered by any of the following problems? 1. Little interest or pleasure in doing things: nearly every day 2. Feeling down, depressed, or hopeless: not at all 3. Trouble falling or staying asleep, or sleeping too much: not at all 4. Feeling tired or having little energy: not at all 5. Poor appetite or overeating: not at all 6. Feeling bad about yourself - or that you are a failure or have let yourself or your family down: not at all 7. Trouble concentrating on things, such as reading the newspaper or watching television: not at all 8. Moving or speaking so slowly that other people could have noticed. Or the opposite - being so fidgety or restless that you have been moving around a lot more than usual: not at all 9. Thoughts that you would be better off or of hurting yourself in some way: not at all Total score: 3 Depression Screening Interpretation: Positive Depression Screening Follow-up: Follow-up Visit Requested Depression Screening Done: Yes [id number] - PHQ-9 Billing: Yes Source: Developed by Drs. Milind Vu, Aminah Cross, Donnie Coles and colleagues, with an educational breana from [email or web address]. Thrive Questionnaire Date Thrive assessed: 02/08/25 I am a: Patient What is your living situation today?: I have a steady place to live Within the past 12 months, did the food you bought not last and you didn't have the money to get more?: Never true Within the past 12 months, did you worry whether your food would run out before you got money to buy more?: Never true Do you have trouble paying for medicines?: No Do you have trouble getting transportation to medical appointments?: No Do you have trouble paying your heating and electricity bill?: No Do you have trouble taking care of your child, family member or friend?: No Do you have trouble with day-to-day activities such as bathing, preparing meals, shopping, managing finances, etc.?: No Are you currently unemployed and looking for a job?: No Are you interested in more education?: No Please select the resources that you would like help with: None Currently or been in a relationship where the following occur: No concerns reported THRIVE Score: 0 AUDIT C Alcohol Use Questionnaire (AUDIT-C) 1. How often do you have a drink containing alcohol?: Never 3. How often do you have six or more drinks on one occasion?: Never Total Score: 0 Score Reviewed/Action Taken: Yes ROYER-7 AMB Questionnaire ROYER-7 Date ROYER - 7 assessed: 02/08/25 Feeling nervous, anxious, or on edge: 0 = Not at all Not being able to stop or control worryin = Not at all Worrying too much about different things: 0 = Not at all Trouble relaxin = Not at all Being so restless that it is hard to sit still: 0 = Not at all Becoming easily annoyed or irritable: 0 = Not at all Feeling afraid as if something awful might happen: 0 = Not at all Total ROYER-7 score (0-4 normal; 5-9 mild; 10-14 moderate; 15-21 severe): 0 Source: Developed by Drs. Milind Vu, Aminah Cross, Donnie Coles and colleagues, with an educational breana from [email or web address]. Review of Systems Const Denies chills, Denies fatigue, Denies fever(s) and Denies headache(s) ENT Denies dysphagia, Denies dizziness, Denies otalgia, Denies headache(s), Denies neck pain, Denies odynophagia and Denies sore throat Card Denies chest pain, Denies palpitations and Denies dyspnea Resp Denies chest congestion, Denies cough and Denies dyspnea GI Denies abdominal pain, Denies constipation, Denies dysphagia, Denies heartburn, Denies diarrhea, Denies nausea, Denies odynophagia and Denies vomiting Reports oliguria (weak urinary stream), Denies dysuria, Reports nocturia and Denies urinary frequency Musc Denies back pain and Denies neck pain Skin/Breast Denies rash Neuro Denies dizziness and Denies headache(s) Endo Denies fatigue and Denies palpitations Physical exam (Primary Care) Vital Signs: Last Vital Signs Pulse 89 02/08/25 16:39 BP 122/80 02/08/25 16:39 Pulse Ox 97 02/08/25 16:39 Oxygen Delivery Method Room Air 02/08/25 16:39 BMI result Body Mass Index 38.9 Tobacco/Smoking Status: Tobacco use Status Tobacco use date assessed 02/08/25 02/08/25 16:45 Patient Tobacco Use Status Never used Tobacco 02/08/25 16:45 e-Cigarette/Vaping Use Never Used 02/08/25 16:45 PHQ-9: PHQ-9 Score PHQ-9: Total score 3 02/08/25 17:53 Depression Screening Interpretation: Positive Depression Screening Follow-up: Follow-up Visit Requested Thrive Assessment: Date of Thrive Assessment Date Thrive assessed 02/08/25 02/08/25 16:45 Currently or been in a relationship where the following occur: No concerns reported Const General: no acute distress and alert HENMT Ears: TM's normal bilaterally and EAC's normal Throat: Yes posterior oropharynx normal and Yes tonsils normal (no TP congestion) Neck Neck: Yes supple and No lymphadenopathy Thyroid: Thyroid normal Resp Auscultation: clear to auscultation bilaterally, no rales and no wheezes Cardio Rate: regular rate Rhythm: regular rhythm Heart sounds: no murmurs GI Palpation (GI): Soft to palpation and nontender Auscultation: normal bowel sounds General: Yes no CVA tenderness Back/Spine/Pelvis Back: no CVA tenderness Thoracic/Lumbar Spine: No lumbar spinal tenderness Skin Rashes: no rashes Extrem General: Yes no clubbing, cyanosis or edema Left upper extremity: wrist ((+) tenderness on exam) Results AMB Hemoglobin A1c AMB Hemoglobin A1c 8.9 % Last Edit by Johana Triana CMA on 02/08/25 17 :54 Results Reviewed Results Reviewed: Laboratory Last Values Hgb A1c (Clinic) 8.9 % (4.0-6.0) H 02/08/25 17:53 Coding Level of Care Code Est Pt Level 4 (12928) Diagnoses Type 2 diabetes mellitus with hyperglycemia, without long-term current use of insulin E11.65 Diabetes mellitus type: type 2 Benign essential hypertension I10 Dyslipidemia E78.5 Intermittent palpitations R00.2 GERD without esophagitis K21.9 Allergic rhinitis due to other allergic trigger, unspecified seasonality J30.89 Allergic rhinitis seasonality: unspecified Allergic rhinitis trigger: other Vitamin D deficiency E55.9 Primary osteoarthritis of both knees M17.0 Urethritis N34.2 Benign prostatic hyperplasia with weak urinary stream N40.1; R39.12 Obesity (BMI 30-39.9) E66.9 Additional Codes PHQ-9 - 90288 - PHQ-9 Billing: Yes ([id number]) Assessment & Plan Assessment & Plan (1) Diabetes mellitus with hyperglycemia, without long-term current use of insulin: Code(s): E11.65 - Type 2 diabetes mellitus with hyperglycemia Category: Medical Qualifiers: Diabetes mellitus type: type 2 Qualified Code(s): E11.65 - Type 2 diabetes mellitus with hyperglycemia Plan: His in-office HgbA1c today remains unchanged from before at 8.9% (it was previously also at 8.9% back in July 2024) - goal is HgbA1c of at least < 7.0% Reinforced diabetic diet Continue?Pioglitazone?45 mg once a day,?Metformin ER 500 mg 2 tablets BID, Trulicity?4.5 mg subcutaneous injection once a week and?Jardiance?25 mg once a day Have advised patient that he will benefit from the addition of Lantus or Basaglar but patient declined - 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 Walker) as scheduled (2) Benign essential hypertension: Code(s): I10 - Essential (primary) hypertension Category: Medical Plan: Reinforced low-sodium diet -? goal is systolic BP of at least 120 to 130 mm or less Continue?Irbesartan?300 mg once a day,?Amlodipine?10 mg once a day and? Hydrochlorothiazide?25 mg once a day in AM (3) Dyslipidemia: Code(s): E78.5 - Hyperlipidemia, unspecified Category: Medical Plan: He was not able to get any follow up labs done recently Reinforced low cholesterol diet Continue Atorvastatin 10 mg QD Will recheck his labs and fasting lipids in 3 months for follow up (4) Intermittent palpitations: Code(s): R00.2 - Palpitations Category: Medical Plan: Echocardiogram and Holter monitor done last year were both normal and unrevealing Patient states that his symptoms (palpitations) have subsided a lot lately He was seen by cardiology for follow-up a few months ago and was advised continued observation for now but he was cautioned that the possibility of AF remains high and he should call if his symptoms get worse at any time Follow up with cardiology as scheduled (5) GERD without esophagitis: Code(s): K21.9 - Gastro-esophageal reflux disease without esophagitis Category: Medical Plan: Dietary restrictions reinforced Continue Omeprazole 20 mg QD (6) Allergic rhinitis: Code(s): J30.9 - Allergic rhinitis, unspecified Category: Medical Qualifiers: Allergic rhinitis seasonality: unspecified Allergic rhinitis trigger: other Qualified Code(s): J30.89 - Other allergic rhinitis Plan: Continue Cetirizine 10 mg QD PRN (7) Vitamin D deficiency: Code(s): E55.9 - Vitamin D deficiency, unspecified Category: Medical Plan: Continue Vitamin D2 1250 mcg once a week (8) Primary osteoarthritis of both knees: Code(s): M17.0 - Bilateral primary osteoarthritis of knee Category: Medical Plan: X-rays of both knees done back in September 2017 showed mild OA changes in both knees States (+) symptomatic relief with OTC Advil PRN To consider referral to Orthopedics if his knee symptoms progress or get worse (9) Urethritis: Code(s): N34.2 - Other urethritis Category: Medical Plan: Continue Fluconazole 150 mg QD Follow-up with urology as scheduled for continuing management of his chronic/recurrent symptoms (10) Benign prostatic hyperplasia with weak urinary stream: Code(s): N40.1 - Benign prostatic hyperplasia with lower urinary tract symptoms; R39.12 - Poor urinary stream Category: Medical Plan: Continue Tadalafil 5 mg QD Follow up with urology as scheduled (11) Obesity (BMI 30-39.9): Code(s): E66.9 - Obesity, unspecified Category: Medical Plan: Reinforced diet/exercise as tolerated/lose weight Plan Follow-up in 3 months Orders: Orders Hemoglobin A1c 3 Months E11.9 - Type 2 diabetes mellitus without complications Comprehensive [place]. Panel Fast 3 Months E78.00 - Pure hypercholesterolemia, unspecified TSH reflex Free T4 3 Months E78.00 - Pure hypercholesterolemia, unspecified Vitamin D 25-OH Total 3 Months E55.9 - Vitamin D deficiency, unspecified Complete Blood Count Auto Diff 3 Months D64.9 - Anemia, unspecified Lipid Panel 3 Months E78.00 - Pure hypercholesterolemia, unspecified Microalbumin, Random (w Creat) 3 Months E11.9 - Type 2 diabetes mellitus without complications UA CC w/rflx Micro + Cult 3 Months R30.0 - Dysuria Vitamin B12 and Folate 3 Months E53.8 - Deficiency of other specified B group vitamins AMB Hemoglobin A1c 02/08/ Z13.9 - Encounter for screening, unspecified Medications: Refilled empagliflozin (Jardiance) 25 mg PO DAILY 90 tabs 3RF 90 days ergocalciferol (vitamin D2) 1,250 mcg PO QWEEK 13 caps 3RF 3 months hydrochlorothiazide 25 mg PO DAILY 90 tabs 3RF metformin ER 1,000 mg (2 x 500 mg) PO BID 360 tabs 3RF 90 days E11.65 - Type 2 diabetes mellitus with hyperglycemia amlodipine 10 mg PO DAILY 90 tabs 3RF atorvastatin 20 mg PO DAILY 30 tabs 5RF E78.5 - Hyperlipidemia, unspecified irbesartan 300 mg PO DAILY 90 tabs 3RF omeprazole 20 mg PO DAILY 90 caps 3RF pioglitazone 45 mg PO DAILY 90 tabs 3RF 90 days
--- OUTSIDE RECORDS SUMMARY | 2025-02-08 18:48 | XMS_ITS | Clinical Summary ---
Author Organization [facility] Address [address] [place] [id number] Phone Care Team Providers Care Stenographic Court Reporter Name Role Phone Abdoulaye Lucas MD Primary Care Provider [phone] Allergies Active Allergy Reactions Criticality Noted Date Comments Codeine Anaphylaxis,Seizures High 04/18/2020 Erythromycin 12/11/2023 Penicillins Anaphylaxis,Throat Tightness High 04/18/2020 Fish Derived Anaphylaxis High 04/18/2020 Sulfa (Sulfonamide Antibiotics) 12/11/2023 Medications hydroCHLOROthiaz brianna (HYDRODIURIL) 25 MG tablet Take by mouth. Activ e omeprazole (PRILOSEC) 20 mg TbEC Take by mouth. Activ e amLODIPine (NORVASC) 10 MG tablet Take by mouth. Activ e irbesartan (AVAPRO) 300 MG tablet Take by mouth. Activ e EPINEPHrine 0.3 mg/0.3 mL auto-injector Inject 0.3 mg into the muscle as needed for anaphylaxis. Active FREESTYLE BENITO 14 DAY READER MiscIndications: Type 2 diabetes mellitus with diabetic polyneuropathy, without long-term current use of insulin 1 application by Miscellaneous route daily. 1 each 02/11/20 Active Additional Information Patient not taking.Reported on 12/11/2023 FREESTYLE BENITO 14 DAY SENSOR KitIndications:T ype 2 diabetes mellitus with diabetic polyneuropathy, without long-term current use of insulin 1 application by Miscellaneous route daily. 2 kit 11 02/11/20 21 Active Additional Information Patient not taking.Reported on 12/11/2023 fluticasone propionate (FLONASE) 50 mcg/actuation nasal spray 04/18/19 22 Active FREESTYLE FREEDOM LITE meter kitIndications:T ype 2 diabetes mellitus with diabetic polyneuropathy, without long-term current use of insulin Check bg 2 times daily 1 kit 06/22/19 22 Active Additional Information Patient not taking.Reported on 12/11/2023 atorvastatin (LIPITOR) 10 MG tablet atorvastatin 10 mg tablet Active ergocalciferol (DRISDOL) 50,000 unit capsuleIndicatio ns:Vitamin D deficiency Take 1 capsule (50,000 Units total) by mouth once a week. 4 capsule 2 09/09/19 22 Active insulin pen needles, disposable, 31 gauge x 05/24 NdleIndications: Type 2 diabetes mellitus with diabetic polyneuropathy, without long-term current use of insulin Once per week 100 each 1 11/29/19 23 Active Additional Information Patient not taking.Reported on 12/11/2023 FREESTYLE 28 gauge lancetsIndicatio ns:Type 2 diabetes mellitus with diabetic polyneuropathy, without long-term current use of insulin 1 each by Miscellaneous route 2 (two) times a day. 200 each 3 01/23/20 23 Active Additional Information Patient not taking.Reported on 12/11/2023 FREESTYLE LITE Strp stripsIndication s:Type 2 diabetes mellitus with diabetic polyneuropathy, without long-term current use of insulin 1 each by Miscellaneous route 2 (two) times a day. 200 strip 3 01/23/20 23 Active Additional Information Patient not taking.Reported on 12/11/2023 blood-glucose sensor (FREESTYLE BENITO 3 PLUS SENSOR) DeviIndications: Type 2 diabetes mellitus with diabetic polyneuropathy, without long-term current use of insulin Every 15 days 2 each 11 12/11/19 24 Active Additional Information Patient not taking.Reported on 05/14/2024 empagliflozin (JARDIANCE) 25 mg tabletIndication s:Type 2 diabetes mellitus with diabetic polyneuropathy, without long-term current use of insulin Take 1 tablet (25 mg total) by mouth daily. 90 tablet 1 05/15/19 25 Active glipiZIDE (GLUCOTROL XL) 10 MG 24 hr tabletIndication s:Type 2 diabetes mellitus with diabetic polyneuropathy, without long-term current use of insulin Take 1 tablet (10 mg total) by mouth daily. 90 tablet 1 05/15/19 25 Active pioglitazone (ACTOS) 45 MG tabletIndication s:Type 2 diabetes mellitus with diabetic polyneuropathy, without long-term current use of insulin Take 1 tablet (45 mg total) by mouth daily. 90 tablet 1 05/15/19 25 Active metFORMIN (GLUCOPHAGE-XR) 500 MG 24 hr tabletIndication s:Type 2 diabetes mellitus with diabetic polyneuropathy, without long-term current use of insulin TAKE 1 TABLET TWICE A DAY 180 tablet 1 05/15/19 25 Active TRULICITY 4.5 mg/0.5 mL subcutaneous injectionIndicat ions:Type 2 diabetes mellitus with diabetic polyneuropathy, without long-term current use of insulin INJECT 0.5 ML (4.5 MG) UNDER THE SKIN EVERY 7 DAYS 6 mL 08/11/19 25 Active Active Problems Problem Noted Date Diagnosed Date Vitamin D deficiency 09/08/2021 Assessment & Plan (09/08/2021 11:45 AM EDT): Found to have vitamin D level 16 we will prescribe ergocalciferol 50,000 units weekly for period of 3 months repeat vitamin D levels in 3 months time. Type 2 diabetes mellitus wit h diabetic polyneuropathy, without long-term current use of insulin 04/18/2020 Assessment & Plan (05/14/2024 4:36 PM EST): Uncontrolled. Hemoglobin A1c 10.3. He is at the maximum dose of Jardiance, pioglitazone and Trulicity. He cannot tolerate a higher dose of metformin due to GI symptoms. 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 At least this is why he has been told. I told him that I have other people who have DOT on insulin but he states he personally would rather not be on insulin. I suggest that he start taking glipizide 10 mg daily in addition to his orals because this is not insulin but it was so in lower glucose levels. He also wants to see the dietitian to try to work on diet. The last visit I discussed switching Trulicity to Mounjaro but he did not want to make any changes previous visit and if things are improved he should consider doing this. Assessment & Plan (12/11/2023 3:41 PM EDT): Uncontrolled. Hemoglobin A1c is 9.2%. He states he has been using all the medications listed in the HPI. He has not wanted to use insulin or sulfonylureas in the past because he is afraid of hypoglycemia and losing his job. He requested the freestyle benito 3+ which I prescribed. I discussed with him the possibility of using Mounjaro but we will have to start at 2.5 mg weekly and increase the dose up to the maximum dose 15 mg. I told him he may get worse before he gets better. He really does not want to do this. He states that he has not been eating right he has been at the big he has been overeating. He is currently not working so he is sedentary and not doing any exercise. He wants to continue the way he is. I will give him a follow-up appointment in 3 months time hopefully he will keep it. But if he goes back to working he is driving he usually does not follow with me. So I would hope that he follows with his primary care physician. Assessment & Plan (11/28/2022 3:56 PM EDT): Uncontrolled. His hemoglobin A1c is 8.8% but has dropped from 7.8%. The patient is compliant or adherent to his medications. That means that he has very high insulin resistance. 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 He is reluctant to use glipizide because he is afraid of developing hypoglycemia. I suggested using Ozempic 2 mg and replace the Trulicity. However he states that he has 3 months of trial of Trulicity and I advised him to finish this off before initiating Ozempic. He is going to continue his other medications. He will follow-up in approximately 6 months. Assessment & Plan (09/08/2021 11:59 AM EDT): Uncontrolled. Hemoglobin A1c is 10.8%. He does not want to use insulin because he will not be able to work. 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 However I told him he needs to get his glucose control because high glucose is going to cause diabetic retinopathy renal damage and neuropathy. At this point I am going to increase the Jardiance from 10 to 25 mg but he is already on the highest dose of pioglitazone the highest dose of Trulicity he cannot tolerate a higher dose of metformin. I discussed with him using Ozempic which is stronger than Trulicity and we can go up to 2 mg weekly. We should do this on the follow-up visit he does not want to do it because he ordered Trulicity and he has too many at home does not want to waste. Assessment & Plan (06/16/2021 10:56 AM EDT): Uncontrolled for the patient is willing to increase Trulicity to 4.5 mg weekly increase pioglitazone to 45 mg he will continue Metformin and Jardiance at the same dose. I am going to give him Trulicity 1.5 mg because he states he has some 3 mg leftover so that way he can use these. The patient was given samples of Trulicity 1.5 Lot number [id number], expiration 07/19/2022. He received 2 samples Assessment & Plan (02/10/2021 10:59 AM EST): Uncontrolled. Hemoglobin A1c 13.5%. At this point what I will do is increase the Trulicity from 1.5 to 3.0 mg. He is going to continue on pioglitazone 30 mg, glyburide 5 mg and Jardiance 10 mg as well as Metformin extended release 500 mg 1 tablet twice a day. I rather not increase the Metformin because he has had diarrhea with Metformin in the past. He is doing well now and I rather not make changes to the Metformin. He did not really want to make any changes to his medication regimen because he has changed his diet. His hemoglobin A1c was so high that I really do not think that just diet alone is going to do it because he is very insulin resistant. So I am glad that he agreed to increase the Trulicity from 1.5 to 3.0 mg weekly. He should follow in 3 months and he can repeat hemoglobin A1c prior to then. As discussed in the HPI I will repeat her lipid panel as well to see if his lipid panel improves now that he has changed his diet. Assessment & Plan (06/27/2020 10:28 AM EDT): The patient's hemoglobin A1c has improved down to around 9.1%. The glycemic levels obviously still high. I asked him in the future to just check glucose levels 2 weeks prior to the visit so I can get an idea of how he is doing. I asked him to do always a fasting glucose and a second alternating between lunch, dinner, bedtime. The last visit we suggested increasing the pioglitazone from 15 to 30 mg he does not have any swelling of his legs but complains of left foot swelling but I do not see anything he feels that there is a tightness around the ball of his feet and I suspect that this could be neuropathy. Of course he will continue to have those type of sensation into glycemic levels improve. At this point he would like to return in 3 months and I am increasing the pioglitazone to 30. We did discuss that we can also increase the Trulicity up to 3 mg but he rather go up on the pioglitazone which is fine and assuming if he does not develop any swelling in his legs then the dose could be even increased further. The only other concern is that he states that he is having diarrhea with the Metformin extended release. We could prescribe Glumetza but it has to be approved by his insurance and it may cost more. In the past he was taking Janumet and that was working well for him. He would like to continue to take the Janumet but I asked him to speak with his primary care physician. I really do not think that it is dangerous to be on the Januvia and/or Trulicity. It just means that he gets more GLP-1 agonist overall. So I will give him a follow-up in 3 months time. Assessment & Plan (04/18/2020 11:23 AM EST): Uncontrolled with hemoglobin A1c is 10.0%. He should continue Janumet because of Janumet has Glucophage. I will increase the Trulicity to 1.5 mg weekly continue pioglitazone 15 mg Jardiance 10 mg and glimepiride for now. He will return in 6 weeks because I can possibly increase his pioglitazone if he still not controlled and I expect that I may have to because of poor glycemic control. He gets Trulicity through mail order so he has to get a 90-day prescription and I cannot increase his dose until 3 months from now. Essential hypertension 04/18/2020 Assessment & Plan (09/08/2021 11:45 AM EDT): Controlled continue current medications. Assessment & Plan (06/16/2021 10:46 AM EDT): Controlled on current medications he is on an angiotensin receptor carina. Continue current medications. Assessment & Plan (02/10/2021 10:56 AM EST): Controlled. No changes required. Assessment & Plan (06/27/2020 10:22 AM EDT): Controlled. He does not have microalbuminuria he should continue his current antihypertensive medications. Assessment & Plan (04/18/2020 11:24 AM EST): Controlled on irbesartan and hydrochlorothiazide no changes. I do need a urine microalbumin and I have requested this from primary care physician's office. Family History Medical History Relation Comments No Known Problems Father Alzheimer's disease Mother Relation Status Comments Father Alive Mother Social History Tobacco Use Types Packs/Day Years Used Date Smoking Tobacco: Never Smokeless Tobacco: Never Tobacco Cessation:Counseling Given: Not Answered Alcohol Use Standard Drinks/Week Comments Yes 0 (1 standard drink = 0.6 oz pur e alcohol) Occaisional Education Answer Date Recorded Are you interested in more education? Not on tyrone e 07/06/2022 Are you concerned about learning? Not on file 07/06/2022 No 07/06/2022 No 07/06/2022 Digital Access Answer Date Recorded No 08/01/2022 No 08/01/2022 Reliable internet access at home? Not on file 08/01/2022 Device with a working camera? Not on file Sex and Gender Information Value Date Recorded Sex Assigned at Male 12/28/2021 12:58 PM EDT Legal Sex Male 3:17 PM EST Gender Identity Male 12/28/2021 12:58 PM EDT Sexual Orientation Asexual 12/28/2021 12 :58 PM EDT Last Filed Vital Signs Vital Sign Reading Time Taken Comments Blood Pressure 128/74 05/14/2024 4:06 PM EST Pulse 98 05/14/2024 4:06 PM EST Temperature 36.2 C (97.1 F) 02/10/2021 10:27 AM EST Respiratory Rate - - Oxygen Saturation 98% 12/11/2023 3:09 PM EDT Inhaled Oxygen Concentration - - Weight 117 kg (258 lb) 05/14/2024 4:06 PM EST Height 175.3 cm (5' 9 ) 05/14/2024 4:06 PM EST Body Mass Index 38.1 05/14/2024 4:06 PM EST Plan of Treatment Upcoming Encounters Date Type Department Care Team (Late st Contact Info) Description 02/22/2025 3:00 PM EST Nutrition [facility] [address] [place] [address] Felicia Robbins, LUCIE [address] [facility], [address] [place] [address] Health Maintenance Due Date Last Done Comments POTASSIUM LEVEL 1962 DEPRESSION SCREENING 1974 HEPATITIS C SCREENING 1980 HIV ONE-TIME SCREENING (18-65 YEARS) 1980 PNEUMOCOCCAL VACCINES (50+ years) (1 of 2 - PCV) 1981 COLOGUARD 10/06/2007 COLONOSCOPY 10/06/2007 COLORECTAL CANCER SCREENING 10/06/2007 FIT TEST 10/06/2007 FOBT 10/06/2007 SIGMOIDOSCOPY 10/06/2007 VIRTUAL COLONOSCOPY 10/06/2007 RSV VACCINE (1 - Risk 50-74 years 1-dose series) 2012 ZOSTER VACCINES (1 of 2) 2012 DIABETIC EYE EXAM 04/18/2020 Adult Td,Tdap Booster 04/18/2021 04/18/2011 HEMOGLOBIN A1C 03/12/2024 12/11/2023, 09/08/2021 INFLUENZA VACCINE (#1) 2024 COVID-19 VACCINE ( - season) 2024 05/21/2020, 04/23/2020 BLOOD PRESSURE 11/14/2024 05/14/2024 CREATININE LEVEL 04/27/2025 04/27/2024, , 07/14/2021, Additional history exists SMOKING STATUS SCREENING (Once After 26 Yrs) Completed 12/11/2023 HEPATITIS A VACCINES Aged Out No long er eligible based on patient's age to complete this topic HIB VACCINES Aged Out No longer eligi ble based on patient's age to complete this topic MENINGOCOCCAL VACCINES (ACWY) Aged Out No longer eligible based on patient's age to complete this topic MENINGOCOCCAL VACCINES (B) Aged Out N o longer eligible based on patient's age to complete this topic Medical Devices Not on file Procedures Procedure Name Priority Date/Time Associated Diagnosis Comments COMPREHENSIVE METABOLIC PANEL (CMP) Routine 04/27/2024 5:05 PM EST POCT HEMOGLOBIN A1C Routine 12/11/2023 3 :30 PM EDT Type 2 diabetes mellitus with diabetic polyneuropathy, without long-term current use of insulin from Last 3 Months or Most Recently Relevant to Health Maintenance Results * Comprehensive metabolic panel (04/27/2024 5:05 PM EST) Abdoulaye Lucas MD LAB BLOOD BKR ORDERABLES Final Result * (ABNORMAL) POCT Hemoglobin A1c (12/11/2023 3:30 PM EDT) Hemoglobin A1c 9.2(A) 4.2 - 5.8 % Other 12/11/2023 3:30 PM EDT Alden Walker DO LAB POCT ENTER/EDIT ORDERABLES F inal Result from Last 3 Months or Most Recently Relevant to Health Maintenance Insurance [facility] Address: [address] [id number] [facility] Care Teams Stenographic Court Reporter Relationship Specialty Start Date End Date Abdoulaye Lucas MD [address] [place] [address] [place] [address] PCP - General Internal Medicine 03/31/20 Additional Source Comments The information contained in this document represents components of the legal health record. It is not the complete legal health record.[facility]
== END 2025-02-08 17:31 | disposition home or self-care (01) ==
LOC: HO.HMCH 16:37
PROVIDERS: PCP Internal Medicine; Visit Provider Internal Medicine
DX: Z13.9 Encounter for screening, unspecified (principal)

== ENCOUNTER → 2025-02-08 16:36 | Outpatient (BNVA) | payer OTHER, SELFPAY | PROVIDERS: PCP Internal Medicine; Visit Provider Internal Medicine | DX: E11.65 Type 2 diabetes mellitus with hyperglycemia (principal); I10 Essential (primary) hypertension; E78.5 Hyperlipidemia, unspecified; R00.2 Palpitations; K21.9 Gastro-esophageal reflux disease without esophagitis; J30.89 Other allergic rhinitis; E55.9 Vitamin D deficiency, unspecified; M17.0 Bilateral primary osteoarthritis of knee; N34.2 Other urethritis; N40.1 Benign prostatic hyperplasia with lower urinary tract symptoms; E66.9 Obesity, unspecified; Z13.31 Encounter for screening for depression; Z13.39 Encounter for screening examination for other mental health and behavioral disorders | CPT/HCPCS: 83036; 96127; 99212 ==